=== PATIENT | female | born 1965 | race Caucasian/White ===

== ENCOUNTER → 2017-12-15 14:25 | Outpatient (CLI) | payer BC, SELFPAY ==
--- NOTE | 2017-12-15 14:27 | HPBI_ITS ---
MAMMOGRAPHY - BILATERAL SCREENING REASON FOR EXAM: Female, 52 years old. Routine annual screening examination. PERTINENT HISTORY: Non-contributory. Remote left stereotactic breast biopsy and right excisional breast biopsy. TECHNIQUE: Digital bilateral breast gloria (3D mammographic acquisition) in the CC and MLO projections. 2-D mediolateral oblique (MLO) and craniocaudad (CC) views of both breasts were obtained. CAD: Full Field Digital Mammography with Computer Added Detection was performed. COMPARISON: Comparison is made with prior study dated December 09, 2016 and December 18, 2015. FINDINGS: Breast Composition: The breasts are extremely dense, which lowers the sensitivity of mammography. There are no dominant masses or suspicious calcifications. Once again, a tissue clip marker is seen in the mid lateral portion of the left breast. No other significant abnormalities are identified. There has been no significant change since the prior study. HPBI/SCREENING MAMM (CAD), BILAT IMPRESSION: Stable bilateral screening mammogram. Yearly follow-up mammogram recommended. (A) ASSESSMENT CATEGORY: BIRADS Category 1: Negative. A letter regarding these results will be sent to the patient by the facility within 30 days. Approximately 10% of breast cancers are not detected by mammography. A normal mammogram should not delay biopsy of a clinically suspicious abnormality. [id number] Electronically Signed: Ricky Mares MD at 7:51 EST Tel [phone], Service support ,
== END ==
PROVIDERS: Family Provider Internal Medicine; PCP Internal Medicine; Visit Provider Obstetrics & Gynecology
DX: Z12.31 Encounter for screening mammogram for malignant neoplasm of breast (principal)
CPT/HCPCS: 77063; 77067

== ENCOUNTER 2018-05-08 08:30 | Outpatient (RCR) | payer BC, SELFPAY ==
--- NOTE | 2018-05-08 15:32 | PCM.HP.BLA ---
History and Physical Identifying information Patient is a 52 year old female who presents to the the [facility] with chief complaint of depression and anxiety. Everything is coming to ahead. History is been obtained per interview with patient, discussion with staff, review of chart. Case discussed with treatment team. History of present illness Patient is a 52-year-old female who presents to [facility] with chief complaint of increased depression and anxiety for the past 2 months. She attributes exacerbation of her symptoms to multiple stressors. Her mother had a stroke in February and she participates in caretaking. Her mother was admitted to the hospital last night for GI bleed. She reports work stress due to management changes and change in work schedule. She endorses depressed mood with anhedonia decreased energy and decreased appetite. She has ruminative anxiety particularly regarding her mother and work. She denies panic attacks. She endorses some mild obsessive-compulsive traits including perfectionism and being a clean freak. She does not feel that these interfere with her general functioning. She is sleeping from 10 PM to 5 AM. Her appetite is overall decreased. She denies eating disorder. She denies suicidal or homicidal ideation. Denies hallucinations or symptoms consistent with psychosis. Denies symptoms consistent with a discrete episode of yvan or bipolar disorder. She acknowledges increased consumption of alcohol of 2-4 craft beers daily since February in an effort to cope. Past psychiatric history Patient denies previous psychiatric hospitalization. She does report an episode of depression in 1995 associated with job stress. She took Zoloft for a period of 4 years prescribed by her [employer]. She stopped Zoloft 2 years ago and resumed it on Friday. She does not currently have a psychiatrist or counselor. She denies history of suicide attempts or self-harm. Substance use history Patient denies smoking or use of illicit drugs. She consumes 2-4 craft beers daily. Past medical history Rosacea SAB 1 Review of systems No fevers chills nausea vomiting chest pain dyspnea. All other systems reviewed and negative. Allergies-penicillin, erythromycin, fragrance, would wool alcohols, P-TERT Current medications Zoloft 50 mg p.o. daily MetroGel Multivitamin Family history Denies family psychiatric history Developmental social history Patient was born and raised in [place]. She has 2 older half-brothers. She has a younger full brother and younger full sister. She grew up with her parents and her siblings. She reports her parents have been for 56 years. She describes growing up as fun and typical. She denies abuse. 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 She has been for 24 years. She and her have 2 kids son age 20 and Cristofer age 18. Legal history none mental status exam Vital signs reviewed per nursing database and discussed with nursing. Alert and oriented . No acute distress. Ambulatory with normal gait and station. Appears stated age. Casually dressed and groomed. Appropriate hygiene. Cooperative with interview. Good eye contact. No psychomotor agitation or retardation. Mood depressed. Affect congruent. Speech is clear and with regular rate and rhythm. Language fluent. Thought process organized. Associations logical. Thought content significant for ruminative anxiety and themes of depression. No suicidal or homicidal ideation related or detected.. No symptoms consistent with psychosis noted or detected. Immediate recent and remote memory grossly intact. Attention and concentration are fair. Estimated intelligence and fund of knowledge average. Judgment and insight fair. Labs and testing TSH normal within the past year. Patient is scheduled for further lab work in 2 weeks. Requisition provided for TSH and vitamin D. Diagnosis Major depressive disorder recurrent moderate F 33.1 Anxiety unspecified Plan Admit to IOP as the structured setting is necessary to prevent decompensation. Risks benefits alternatives of medications discussed with patient. Patient acknowledges understanding. Continue Zoloft 50 mg daily. Prescription provided for Campral 333 mg p.o. 3 times daily to be increased to 666 mg p.o. 3 times daily after 1 week. Alcohol cessation encouraged. Patient prefers to attempt alcohol cessation prior to starting Campral. May start Campral if needed. Prescription provided for trazodone 50 mg 1/2-2 p.o. nightly as needed insomnia. Requisition provided for lab work. Encouraged to establish with outpatient psychiatric providers for follow-up when IOP complete. Encouraged to follow-up with primary care physician as needed. Patient acknowledges understanding and is in agreement with plan. Feels able to maintain safety. Agrees to seek help or emergency care feeling unsafe to self or others.
--- NOTE | 2018-05-08 15:44 | BH.DR.ITP ---
Initial Treatment Plan - Patient Information Visit Information: ADMISSION DATE: EXPECTED LOS: 4-6 weeks Diagnoses:: Major depressive disorder of 33.1 - Problems/Symptoms Problem #1:: Depression Symptom:: Sad mood, anhedonia, decreased energy, disruption of appetite Problem #2:: Anxiety Symptom:: Rumination
--- NOTE | 2018-05-11 09:07 | BH.SGPN.GN ---
Behaviors/Verbalizations/Mental Status: [Client alert and orient x3. She was appropriately groomed, dressed clean and casually. Good eye contact throughout. Client motor activity appropriate, at times appearing restless AEB client fidgeting with hands or edge of chair. Speech was WNL; however, limited input provided. Mood was depressed and anxious, affect constricted. Thoughts linear and logical, no present hallucination or delusions. Therapist reviewed clients symptom tracker to assess for intensity of mental health symptoms and identify risk for suicide. No signs of suicidal ideation, plan, or intent to date.] Client Response/Progress/Benefit: [Client new to the IOP program and was adjusting to group setting. She was receptive of session and responded well to discussion throughout. Client indicated feelings very anxious and scared to be in a group mental health support program. She went on to discuss having no previous experience with group treatment or therapy in general. Client benefitted from the support of the group environment and encouragement provided by fellow participants who aided in normalizing some of clients fears regarding ensuring confidentiality and not wanting to be judged by the group. Client expressed wanting to work on improving management of mental health symptoms as well as learning strategies for Decreasing levels of anxiety. Recommended continued IOP tx to prevent decompensation and work on improving client insight into mental health symptom management.] Narrative Note: []
--- NOTE | 2018-05-11 10:20 | BH.SGPN.GN ---
Behaviors/Verbalizations/Mental Status: [] Pt eye contact fair, casually dressed, motor activity restless, speech normal rate and tone, mood anxious, congruent affect, thoughts linear and logical, no evidence of delusions or hallucinations. Client Response/Progress/Benefit: []Pt initially quiet, appeared anxious however showed increased engagement and more comfortable towards middle of group AEB increased verbal participation. Pt reported goals can be beneficial by giving a sense of accomplishment and purpose. Pt identified fear of unknown as a barrier to following through on goals set. She also connected with high expectations of self being a barrier. When processing activity pt connected with idea small successes and accomplishments should be celebrated. Pt seemed to benefit from learning about setting SMART goals as well as rehearsal of setting small goals. Pt to continue IOP level of care to decrease anxiety and prevent decompensation.
--- NOTE | 2018-05-11 11:25 | BH.SGPN.GN ---
Behaviors/Verbalizations/Mental Status: [] Pt eye contact fair, casually dressed, motor activity restless, speech normal rate and tone, mood anxious, congruent affect, thoughts linear and logical, no evidence of delusions or hallucinations. Client Response/Progress/Benefit: [] Patient passive to splint contributed if elicited by therapist. Client reported her goal for the week is to ride her bike at least 3 times for 1 hour. Client reported she has all of the things she needs in order to go bike riding however her biggest struggle is making a time. Client shared she is going to schedule it by writing on Friday, Friday, and Friday this week. Client shared the reason she wants to accomplish his goals because she knows when she takes time to go bike riding she feels more mentally stable and relaxed. Client seemed to benefit from identifying one smart goal that will help her get back into focusing on self-care which is something client reported she has not been focusing on recently. Narrative Note: []
--- NOTE | 2018-05-12 09:12 | BH.SGPN.GN ---
Behaviors/Verbalizations/Mental Status: [Client alert and orient x3. She maintained consistent eye contact throughout. Motor activity restless - wringing hands and bouncing legs. Appearance was neat, grooming and hygiene well kempt. Speech soft though within normal limits. Mood was anxious, depressed; affect constricted. Thoughts remained linear and logical, no present hallucinations or delusions. Therapist reviewed clients symptom tracker to assess for intensity of mental health symptoms and identify risk for suicide. No signs of suicidal ideation, plan, or intent to date.] Client Response/Progress/Benefit: [Client receptive of session and was engaged throughout. This was evidenced by client increased ability to relate to the group and supportive feedback provided. Client did not provide any personal input related to client own mental health recovery; however, on various occasions responded to other participants and indicated connecting with the ongoing symptoms of worry and anxiety discussed by others in the group. Client continues with to benefit from the structure of the shared group environment. She is recommended continued IOP tx to prevent decompensation and promote ongoing progress in her use of healthy anxiety management and distress tolerance skills. ] Narrative Note: []
--- NOTE | 2018-05-12 10:30 | BH.SGPN.GN ---
Behaviors/Verbalizations/Mental Status: []Client alert and oriented, neatly dressed and groomed. Eye contact good. Motor activity appropriate. Speech within normal limits. Affect flat, mood anxious, depressed. Thoughts linear, logical, no signs of hallucinations or delusions. Client Response/Progress/Benefit: []Client responded well to session, participating when prompted. Client appeared to connect with the topic of resilience, sharing Im an expert on adapting to the point its burdensome. After the group discussion of resilience, client connected that a resilient person can be flexible to others and adapt, but also takes time for self-care. Client stated she forgets to take care of herself, which makes dealing with stressors and being resilient hard. Client helped peers identify the factors that contribute to building resilience such as taking care of basic needs and self-care, living to learn, and self-awareness. Client appeared to benefit from increasing awareness of resilience and the factors that help build resilience such as taking care of basic needs. Progress noted as shown by clients increased awareness of how self-care plays a critical role in managing stressors. Client to continue IOP as she continues to report high anxiety.
--- NOTE | 2018-05-12 11:30 | BH.SGPN.GN ---
Behaviors/Verbalizations/Mental Status: []Client alert and oriented, neatly dressed and groomed. Eye contact good. Motor activity appropriate. Speech within normal limits. Affect flat, mood anxious, dysthymic. Thoughts linear, logical, no signs of hallucinations or delusions. Client Response/Progress/Benefit: []Client responded well to session, making good connections during discussion. Client engaged in activity, demonstrating resilient traits as shown by her words of encouragement and determination to accomplish the goal. Client connected the stress ball to a resilient personality because the stress ball can bounce back after dealing with stress. Client identified personal resilience traits such as being open to help, taking care of basic needs, exercise, and self-care to help client maintain resilience despite hardships. Client shared Julianna realized how much I dont take care of myself and I want to get back to exercising because I enjoyed it. Client appeared to benefit from gaining awareness of ways she can improve resilience and receiving positive support from peers. Client to continue IOP to prevent decompensation and reduce anxiety.
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
--- NOTE | 2018-05-12 17:02 | BH.MTP ---
Master Treatment Plan - Patient Information Program Physician:: Dr. Young Primary Therapist:: Wendie Sheldon [facility] - Psychiatric Diagnoses Psychiatric Diagnoses:: Major depressive disorder recurrent moderate. Anxiety unspecified Diagnosis Code(s):: F 33.1 - Estimated LOS Estimated LOS (in weeks):: 6 Problem/Goal #1 - Problem/Goal #1 Stated Goal:: Client will reduce depression and improve daily functioning due to Major Depressive Disorder through the Intensive Outpatient Program. Description of Barriers: Pt's apprehension about being in a group therapy type of treatment could be hinderance to treatment if pt does not open up about her feelings and thoughts. Pt's high expecations of self, ruminations, and negative thinking could also be barriers to treatment. Functional Impact: Pt having difficulty managing the stressors at work and fulfilling responsibilites as a mother and . Pt is experiencing increased agitation which is impacting familial relationships. Pt has stopped doing the activities that were her basic self-care, like bike riding. Pt using alcohol as a form of self-medicating to cope with stressors and mental health symptoms. Goal Relevant Strengths/Supports: Pt is intelligent and motivated to get better. - Objectives Objective #1 Stated Objective: Client will identify 2-3 depressive thinking patterns and be able to challenge and replace negative thoughts. Interventions: Therapist will assist client in identifying depressive thinking patterns and provide client with resources to help teach client strategies in defeating negative thoughts. Discharge Criteria: Client will have met this objective when can identify at least two depressive thinking patterns and be able to defeat depressive and suicidal thoughts. Target Date: 06/19/18 Review Date: 06/05/18 Objective #2 Stated Objective: Client will reduce depressive symptoms AEB pt's score on the DSM 5 cross cutting measure. Interventions: Through groups and individual therapy, pt will be provided with education on cognitive distortions, mistaken beliefs, and identifying and combating negative self-talk. Therapist will assist pt with getting back into the activities she once enjoyed as well as increasing healthy coping strategies. Discharge Criteria: Pt will have met this goal when pts score on the DSM 5 cross cutting measure for depression has been decreased. Target Date: 06/19/18 Review Date: 06/05/18 Problem/Goal #2 - Problem/Goal #2 Stated Goal:: Reduce overall frequency, intensity, and duration of the anxiety so that daily functioning is not impaired. Description of Barriers: Pt's apprehension about being in a group therapy type of treatment could be hinderance to treatment if pt does not open up about her feelings and thoughts. Pt's high expecations of self, ruminations, and negative thinking could also be barriers to treatment. Functional Impact: Pt having difficulty managing the stressors at work and fulfilling responsibilites as a mother and . Pt is experiencing increased agitation which is impacting familial relationships. Pt has stopped doing the activities that were her basic self-care, like bike riding. Pt using alcohol as a form of self-medicating to cope with stressors and mental health symptoms. Goal Relevant Strengths/Supports: Pt is intelligent and motivated to get better. - Objectives Objective #1 Stated Objective: Client will learn and implement 2-3 calming skills to reduce overall anxiety and manage anxiety. Interventions: Therapist will teach the client calming/relaxation skills and help clients connect ways to apply skills to daily life. Discharge Criteria: Client will have met this goal when can verbalize at least 2 relaxation skills and has incorporated those skills into daily routine. Target Date: 06/19/18 Review Date: 06/05/18 Objective #2 Stated Objective: Pt will decrease anxious symptoms AEB pts score on the DSM 5 cross-cutting measure. Interventions: Through groups and individual therapy, pt will be provided education about anxietys impact on body and common physiological reaction to anxiety. Therapist will teach pt appropriate breathing techniques and build healthy coping skills to manage daily anxieties. Discharge Criteria: Pt will have met this goal when pts score on the DSM 5 cross cutting measure for anxiety has been decreased. Target Date: 06/19/18 Review Date: 06/05/18
--- NOTE | 2018-05-12 21:26 | BH.MDN ---
Multi-Disciplinary Note - Note 60-min Individual Time Started:: 12:30 Date: 05/12/18 Purpose of session/treatment goals addressed:: Purpose of session was to assess current symptoms and stressors. other topics included: identifying treatment goals, gathering additional background information, relaxation techniques. Eye Contact:: Fair Motor Activity:: Restless Appearance:: Neat Speech:: Appropriate Mood:: Anxious, Depressed Affect:: Congruent Thoughts:: Linear, Logical, No evidence of hallucinations/delusions noted Staff Interventions:: Therapist utilized open ended questions to elicit pt's current symptoms and stressors. Therapist probed for additional background information. Elicited pt's thoughts about what treatment goals she would like to focus on throughout IOP. Therapist provided support by using active listening and validating emotions. Pt provided psychoeducation about proper breathing techniques to reduce anxiety. Provided handout of 4 different breathing techniques. Gave homework for pt to choose one breathing technique to practice at least for 2 minutes every day. Client Response:: Pt reported group wasn't as bad today, found herself to be little less anxious. Pt shared she still finds group therapy to be anxiety producing, but recognizes it could get better as she becomes comfortable with the other group members. Pt opened up about her mental health history sharing she first noticed her anxiety when she was in college. Pt reported she notes on and off bouts of increased anxiety since late , but overall believed she managed her symptoms well. Pt shared medication did help, but stopped taking it after 5 years because she wanted to do it on my own. Pt recognizes medications are not a bad thing and have since started taking the medications again. Pt identifies her mom's stroke in February 2018 to be the big stressor that exasperated her anxiety and depression. Pt reports her mom continues to be demanding her pt's father which increases pt's worry because she doesn't want her father to decline in health with the added stress. Pt states she wants to make sure she gets her mom the best care possible and recently started to question why she is so invested in helping her mom after her mom has been critical of pt since pt graduated from college. Pt reports she is trying to get back into doing activities that are healthy for her including biking. Pt states she has plans to go biking today after session. Pt shared her inital goal to reduce her drinking of alcohol is to cut back to one beer a day through the week and two beers on the weekend. Pt reported eventually she'd like to work to having several days in which she didn't drink a beer. Pt agreeable to practice at least one breathing technique everyday for at least 2 minutes for one week. Risks/Concerns:: Pt denies suicidal thoughts, plan or intention to date. Pt's family is supportive and serves as a protective factor. Progress Toward Goals/Plan:: Pt showing progress with decreasing her drinking of alcohol this weekend and verbalizing planning to follow through with identified goal of taking a bike ride at least 3 times a week for one hour. Pt progress limited given pt has only attended 3 times in the program. Pt to continue IOP level of care to decrease anxiety and depression, improve daily functioning, and prevent decompensation. Time Stopped:: 13:30
--- NOTE | 2018-05-13 09:08 | BH.SGPN.GN ---
Behaviors/Verbalizations/Mental Status: []Client alert and oriented, neatly dressed and groomed. Eye contact good. Motor activity relaxed. Speech within normal limits. Affect constricted, mood anxious. Thoughts linear, logical, no signs of hallucinations or delusions. Reviewed clients symptom tracker, no signs of suicidal ideation, plan, or intent as of 05/13/18. Client Response/Progress/Benefit: []Client responded well to session, quiet, but receptive to validation providing by peers. Client reports feeling scared, guilty, frightened today. Client shared she feels guilty for being in group when she has a lot of things to do at home and for her family. Client also stated, feeling scared about this whole process referring to mental health, as client reported she is a private person who does not like to express her struggles. 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 Client stated she has been pushing anxiety and her needs aside for so long, it is scary to work on them in therapy. Client appeared to benefit from in the moment thought challenging and emotional support provided by group. Client demonstrating progress as shown by her verbalization of interpersonal struggles in group, but continues to endorse ruminations and anxiety. Client to continue IOP to reduce anxiety and increase mood stability.
--- NOTE | 2018-05-13 10:15 | BH.SGPN.GN ---
Behaviors/Verbalizations/Mental Status: [Client receptive of session, alert and orient x3. She was a passive participant, actively listening throughout discussion. Fair eye contact throughout, tearful when discussing negative thinking patterns. Motor activity lethargic. Appearance disheveled - attire oversized and wrinkled. hair unwashed. Speech within normal limits. Mood was anxious, depressed. affect constricted, depressed. Thoughts remained linear and logical, with no present hallucinations or delusions.] Client Response/Progress/Benefit: [Client responded well to session. She appeared to connect well with group topic of negative thinking cycle challenging negative thoughts. Client remained a passive participant in the discussion portion however was actively listening throughout. This was dense by client nodding and taking notes as well as providing some input or asking clarification questions. Client appeared to benefit from psychoeducation portion reviewing depression and anxiety maintenance cycles and how negative thinking can contribute to maintaining symptoms of anxiety and depression. Shared finding that in her own life she struggles with falling into similar cycles and commonly experiences negative thoughts of never be happy again or I am just going through the motions. Client displayed progress in her ability to in the discussion and provide input regarding how content discussed relates to her own personal experiences. Recommended continued IOP treatment in order to prevent decompensation, increased levels of insight regarding client's own mental health, and continue to develop strategies for managing mental health symptoms.] Narrative Note: []
--- NOTE | 2018-05-13 10:53 | BH.MTP_ITS ---
Master Treatment Plan - Patient Information Program Physician:: Dr. Young Primary Therapist:: Wendie Sheldon [facility] - Psychiatric Diagnoses Psychiatric Diagnoses:: Major depressive disorder recurrent moderate. Anxiety unspecified Diagnosis Code(s):: F 33.1 - Estimated LOS Estimated LOS (in weeks):: 6 Problem/Goal #1 - Problem/Goal #1 Stated Goal:: Client will reduce depression and improve daily functioning due to Major Depressive Disorder through the Intensive Outpatient Program. Description of Barriers: Pt's apprehension about being in a group therapy type of treatment could be hinderance to treatment if pt does not open up about her feelings and thoughts. Pt's high expecations of self, ruminations, and negative thinking could also be barriers to treatment. Functional Impact: Pt having difficulty managing the stressors at work and fulfilling responsibilites as a mother and . Pt is experiencing increased agitation which is impacting familial relationships. Pt has stopped doing the activities that were her basic self-care, like bike riding. Pt using alcohol as a form of self-medicating to cope with stressors and mental health symptoms. Goal Relevant Strengths/Supports: Pt is intelligent and motivated to get better. - Objectives Objective #1 Stated Objective: Client will identify 2-3 depressive thinking patterns and be able to challenge and replace negative thoughts. Interventions: Therapist will assist client in identifying depressive thinking patterns and provide client with resources to help teach client strategies in defeating negative thoughts. Discharge Criteria: Client will have met this objective when can identify at least two depressive thinking patterns and be able to defeat depressive and suicidal thoughts. Target Date: 06/19/18 Review Date: 06/05/18 Objective #2 Stated Objective: Client will reduce depressive symptoms AEB pt's score on the DSM 5 cross cutting measure. Interventions: Through groups and individual therapy, pt will be provided with education on cognitive distortions, mistaken beliefs, and identifying and combating negative self-talk. Therapist will assist pt with getting back into the activities she once enjoyed as well as increasing healthy coping strategies. Discharge Criteria: Pt will have met this goal when pt?s score on the DSM 5 cross cutting measure for depression has been decreased. Target Date: 06/19/18 Review Date: 06/05/18 Problem/Goal #2 - Problem/Goal #2 Stated Goal:: Reduce overall frequency, intensity, and duration of the anxiety so that daily functioning is not impaired. Description of Barriers: Pt's apprehension about being in a group therapy type of treatment could be hinderance to treatment if pt does not open up about her feelings and thoughts. Pt's high expecations of self, ruminations, and negative thinking could also be barriers to treatment. Functional Impact: Pt having difficulty managing the stressors at work and fulfilling responsibilites as a mother and . Pt is experiencing increased agitation which is impacting familial relationships. Pt has stopped doing the activities that were her basic self-care, like bike riding. Pt using alcohol as a form of self-medicating to cope with stressors and mental health symptoms. Goal Relevant Strengths/Supports: Pt is intelligent and motivated to get better. - Objectives Objective #1 Stated Objective: Client will learn and implement 2-3 calming skills to reduce overall anxiety and manage anxiety. Interventions: Therapist will teach the client calming/relaxation skills and help clients connect ways to apply skills to daily life. Discharge Criteria: Client will have met this goal when can verbalize at least 2 relaxation skills and has incorporated those skills into daily routine. Target Date: 06/19/18 Review Date: 06/05/18 Objective #2 Stated Objective: Pt will decrease anxious symptoms AEB pt?s score on the DSM 5 cross-cutting measure. Interventions: Through groups and individual therapy, pt will be provided education about anxiety?s impact on body and common physiological reaction to anxiety. Therapist will teach pt appropriate breathing techniques and build healthy coping skills to manage daily anxieties. Discharge Criteria: Pt will have met this goal when pt?s score on the DSM 5 cross cutting measure for anxiety has been decreased. Target Date: 06/19/18 Review Date: 06/05/18
--- NOTE | 2018-05-13 11:25 | BH.SGPN.GN ---
Behaviors/Verbalizations/Mental Status: [Client eye contact fair, casually and appropriately dressed, motor activity restless, speech normal rate and soft tone, mood anxious and depressed, constricted affect, thoughts linear and logical, no evidence of delusions or hallucinations.] Client Response/Progress/Benefit: [Client again responded well to session and was more open to providing input throughout discussion. She was able to work with the group on identifying potential mental health and behavioral consequences of the example negative thought and identify ways to challenge and reframe it. CLient struggled in challenging her own negative thought and discussed with the group feeling as though the thought of I'll never be happy again is realistic. She benefited from the feedback provided by fellow participants regarding evidence against this thought and ways she may begin to challenge her current perception of it. Client contonies to struggle with significant distorted thinking patterns; however, is displaying progress in her receptivity of IOP tx content discussed and indicated beginning to think about how the information may relate to her own life. CLient recommended continued IOP tx to prevent decompensation and further improve client ability to identify and challenge anxiety producing thoughts. ] Narrative Note: []
--- NOTE | 2018-05-21 09:02 | BH.SGPN.GN ---
Behaviors/Verbalizations/Mental Status: [] Pt eye contact fair, casually dressed, motor activity restless, speech normal rate and tone, mood anxious, congruent affect, thoughts linear and intact, no evidence of delusions or hallucinations. Reviewed client?s symptom tracker, no signs of suicidal ideation, plan, or intent as of today. 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 Pt shared once she arrived to her place it took her awhile to unwind. Pt reported overall the workshop went well, struggled with sitting still throughout because she feels the need to be constantly moving. Pt shared she has been busy because worked Friday-Friday, but reported she worked on letting things go and not trying to control all situations. Pt reported it was challenging, but recognizes it's important for her to start doing. Pt reported she was able to go biking 2 times and instead of going biking a 3rd time she chose to deep clean her car. Pt shared she is happy she was able to accomplish getting her car clean and really enjoyed herself by biking. Pt reported feeling excited to go away with her family today for a long weekend. Pt demonstrating progress AEB pt managing her anxiety more effectively and is getting back to activities she used to enjoy. Pt to continue IOP to decrease anxiety and prevent decompensation. Narrative Note: []
--- NOTE | 2018-05-21 10:09 | BH.SGPN.GN ---
Behaviors/Verbalizations/Mental Status: [Client maintained good eye contact, neat and casually dressed, motor activity WNL - at times restless as client shaking leg or adjusting in chair frequently, speech normal rate and tone, mood anxious and euthymic, affect congruent with mood, thoughts linear and logical, no evidence of delusions or hallucinations.] Client Response/Progress/Benefit: [Client responded positively to session, engaged throughout. She was an active participant in discussion reviewing the impact current internal obstacles may have on her ability to bridge the gap between current reality and desired reality. Client indicated that to her current reality looks like the sun is always hidden be clouds for her while everyone else is enjoying the sunshine. She displayed progress in her ability to identify current barriers and shared beliefs that perfectionist thinking, high standards for herself,and taking on more than she can handle are her largest barriers to attaining her desired reality. She benefitted from processing the impact her identified obstacles have on current mental health symptoms. Client recommended continued IOP tx to prevent decompensation and continue to increase client insight into mental health symptoms and management techniques.] Narrative Note: []
--- NOTE | 2018-05-21 11:18 | BH.SGPN.GN ---
Behaviors/Verbalizations/Mental Status: [Client maintained good eye contact, casually neat and dressed, motor activity appropriate, speech normal rate and tone, mood euthymic - volunteered to be blindfolded in the activity despite anxiety about doing so, anxious, congruent affect, thoughts linear and logical, no evidence of delusions or hallucinations.] Client Response/Progress/Benefit: [Client responded well to session and remained actively engaged throughout. She volunteered as one of the blindfolded participants in the obstacle course activity. She benefited from challenging herself to go outside of her comfort zone in doing such and allow herself to trust fellow participants to guide her. Nick connected her discomfort which lack of control when blindfolded to discomfort when feeling out of control in her personal life. She displayed progress in ability to begin identifying healthy strategies for overcoming internal barriers. Client recommended continued IOP tx to prevent decompensation and continue to make progress in anxiety management.] Narrative Note: []
--- NOTE | 2018-05-25 09:05 | BH.SGPN.GN ---
Behaviors/Verbalizations/Mental Status: [Client maintained fair and at times inconsistent eye contact, casually and cleanly dressed, motor activity restless - client tapping hands against one another and bouncing in seat, speech normal rate and tone, mood irritable,anxious - client described feeling dreadful, affect congruent, thoughts linear and logical, no evidence of delusions or hallucinations. Therapist reviewed clients symptom tracker to assess for intensity of mental health symptoms and identify risk for suicide. No signs of suicidal ideation, plan, or intent to date.] Client Response/Progress/Benefit: [Client responded positively to session and appeared to benefit from having the time to process with the group. She initially indicated feeling dreadful today however almost immediately challenged herself and indicated well maybe not dreadful anymore frustrated she discussed having recently had a good past few days is feeling positive until earlier this morning when she received a text from her sister. Client went on to describe that the text had about her mother who is currently receiving rehab dilatation post stroke. In the past similar attacks have been the cause of ongoing headaches and miscommunication between her mother's doctors and supports. 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 She shared feeling anxious about going to the hospital to help her mother navigate the situation however reflected that initially she had been catastrophizing and after talking to her mother's medical team on the phone as well as processing and reminding herself that in the past she has made it through similar experiences she is a feeling a little less stressed. progress shown in clients willingness to begin actively challenging previous behaviors and thought patterns. Recommended continued IOP treatment to prevent decompensation and continue to make progress in ability to manage mental health symptoms.] Narrative Note: []
--- NOTE | 2018-05-25 10:35 | BH.SGPN.GN ---
Behaviors/Verbalizations/Mental Status: []Client alert and oriented, neatly dressed and groomed. Eye contact good. Motor activity appropriate. Speech within normal limits. Affect constricted, mood anxious. Thoughts linear, logical, no signs of hallucinations or delusions. Client Response/Progress/Benefit: []Client responded well to session, participating when prompted. Client shared there can be many reasons why a person views a situation as impossible, feeling overwhelmed being one of them. Client nodded in agreement with peers that having an impossible mindset can negatively impact mental health and progress. Client participating in activity, passive at times. Client told therapist after activity I hope you dont think I gave up which demonstrates client may have been ruminating and anxiety about what others thought of her during the activity. Client shared she deals with high-anxiety situations at work frequently, so she has to pick in choose in her personal life what situations need my energy and which ones I can let go. Client stated it is helpful to have self-awareness when dealing with impossible situations, because somethings cant be solved so you have to move on. Client appeared to benefit from recognizing the consequences of viewing situations as impossible and reflecting on the importance of self-awareness. Client seems to be progressing with increasing awareness of clients lack of self-care, but continues to struggle with implementing calming strategies to manage anxiety.
--- NOTE | 2018-05-25 11:32 | BH.SGPN.GN ---
Behaviors/Verbalizations/Mental Status: []Client alert and oriented, neatly dressed and groomed. Eye contact good. Motor activity restless. Speech within normal limits. Affect constricted, mood anxious. Thoughts linear, logical, no signs of hallucinations or delusions Client Response/Progress/Benefit: []Client responded well to session, participating in discussion. Client appeared to connect with growth versus fixed mindset providing examples of thoughts for each. Client helped the group process the benefits of growth mindset sharing, having a growth mindset helps her move forward and be more hopeful. Client reported she is used to high-stress environments due to her work, so she is consistently thinking of solutions and using her growth mindset. Client recognizes she could benefit from implementing growth mindset self-talk to manage her mental health as well. Client able to identify internal and external resources that can help client overcome current barriers of anxiety such as increasing self-care, thought challenging, and reaching out to positive supports. Client appeared to benefit from learning about growth mindset and increasing awareness of internal and external resources that may help client overcome barriers. Client seems to be progressing as shown by her report of increased awareness of negative thought patterns, but can continue to benefit from applying thought challenging strategies.
--- NOTE | 2018-08-11 16:06 | BH.MDN_ITS ---
Multi-Disciplinary Note - Note 45-min Individual Time Started:: 12:23 Date: 05/21/18 Purpose of session/treatment goals addressed:: Purpose of session was to assess pt's current symptoms and stressors. Other topics included: education about cognitive triangle, high expecations, and healthy coping skills. Eye Contact:: Fair Motor Activity:: Restless Appearance:: Casual Speech:: Appropriate Mood:: Anxious Affect:: Congruent Thoughts:: Linear, Logical, No evidence of hallucinations/delusions noted Staff Interventions:: Therapist used open ended questions to elicit pt's current symptoms and stressors. Therapist processed yesterday, assisting pt with identifying distorted thought patterns. Therapist provided psychoeducation about the connection between thoughts, emotions, and behavior. Therapist used example from pt's recent thought patterns to help pt connect impact her negative thinking has on her emotions and behavior. Therapist reviewed pt's healthy coping skills, encouraged pt to set time aside to do things she enjoys. Therapist provided homework for pt to keep a thought record over the weekend. Client Response:: Pt appeared anxious throughout session, seems to continue to have difficult time opening up about her thoughts and emotions. 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 Pt shared she knows it will take some time to give up some of her control, but she is trying to apply that to work and home. Pt reported yesterday was a bad day. Pt elaborated that she was anxious in the morning driving to the workshop plus knew she had to get a lot done in order to be ready for short family vacation. Pt reported steady an xiety throughout the day with heightened anxiety when found out her daughter didn't follow through on certain tasks she had given her daughter to do. Pt shared she was able to get everything done, but embarassed and disappointed that she drank more alcohol then she wanted. Reported she has been doing well with sticking to 2 beers every evening, but last night had 3-4 beers. Pt states she doesn't think she was drinking as a way to destress, but was just having a good time getting ready for vacation. Pt reported this morning she was beating herself up for going over the goal of drinking only 2 beers. Shared she kept telling herself I'm such a loser. Pt connected with the cognitive triangle, relating how her thoughts can impact how she feels and how her emotions can impact how she acts. Pt agreeable to complete thought record. Risks/Concerns:: Pt does not present any risks or concerns at this time. Progress Toward Goals/Plan:: Pt demonstrating progress with trying to have realistic expecations of self while at work and not aiming for perfection because results in increased stress and anxiety. Pt working on letting go of some control at work, deligating tasks instead of taking everything on herself. Pt continuing to struggle with utilizing healthy coping skills when feeling overwhelmed and anxious which results in pt reverting back to old coping skills like alcohol. Pt to continue IOP level of care to decrease anxiety, increase utilization of healthy skills consistently, and prevent decompensation. Time Stopped:: 13:03
== END 2018-05-26 23:59 ==
LOC: BHIOP 08:30
PROVIDERS: Family Provider Internal Medicine; PCP Internal Medicine; Visit Provider Psychiatry & Neurology Psychiatry
DX: F33.1 Major depressive disorder, recurrent, moderate (principal); F41.9 Anxiety disorder, unspecified
CPT/HCPCS: H0035; 90834; 90853

== ENCOUNTER 2018-05-27 09:00 | Outpatient (RCR) | payer BC, SELFPAY ==
--- NOTE | 2018-05-27 10:18 | BH.SGPN.GN ---
Behaviors/Verbalizations/Mental Status: [Client maintained good eye contact, casually dressed, motor activity restless - wringing hands, tapping feet, speech normal rate and tone, mood euthymic and anxious, congruent affect, thoughts linear and logical, no evidence of delusions or hallucinations.] Client Response/Progress/Benefit: [Client responded well to session and indicated making several connections with content discussed. She worked with fellow participants on identifying the various means in which they can choose to deal with life's pitfalls. Client discussed feeling as though she works really hard at avoiding life's pitfalls and will often minimize her symptoms or take on more than she can handle. Client further discussed feeling as though she utilizes anticipatory guidance or trying to over plan for things which negatively impacts symptoms of anxiety. Client benefited from this shared discussion in which he expressed connecting with the various negative means of coping with unexpected or negative life events discussed by fellow participants. Client displayed progress in her ability to identify creative solutions to approaching the pitfalls in the group activity and was able to make connections between solutions in the activity and potential solutions she could apply to her own life. She is recommended continued IOP treatment in order to prevent decompensation, increase application of creative problem-solving solutions identified and use of healthy coping skills. ] Narrative Note: []
--- NOTE | 2018-05-27 11:19 | BH.SGPN.GN ---
Behaviors/Verbalizations/Mental Status: [Client alert and orient x3, maintained good eye contact, casually and neatly dressed, motor activity restless - fidgeting in seat, bouncing legs, speech normal rate and tone, mood euthymic and anxious - actively reflecting, affect congruent and full, thoughts linear and logical, no evidence of delusions or hallucinations.] Client Response/Progress/Benefit: [Client responded well to session and remained an actively engaged participant throughout. Client shared that she was able to connect with the person pitfalls other participants were discussing and indicated that her personal pitfalls include guilt, isolation, high expectations of self, fixed mindset, and caring for myself to the point of not caring for myself. She benefitted from working with the group to identify strategies for managing and preventing falling into pitfalls including creating a plan 'B', relax my thinking and becoming more flexible, healthy distractions such as turn on tv or listen to music, clear and effective communication, and practicing coping skills CLient displaying progress in her level of insight regarding what skills may be effective to improve symptom management. Client recommended continued IOP tx to improve consistency of healthy skill application and to prevent decompensation.] Narrative Note: []
--- NOTE | 2018-05-27 15:59 | BH.MDN ---
Multi-Disciplinary Note - Note 60-min Individual Time Started:: 09:05 Date: 05/27/18 Eye Contact:: Good Motor Activity:: Appropriate Appearance:: Casual Speech:: Appropriate Mood:: Anxious Affect:: Congruent Thoughts:: Linear, Logical, No evidence of hallucinations/delusions noted Time Stopped:: 10:00
--- NOTE | 2018-05-29 14:14 | PN_ITS ---
Progress Note Patient is seen in follow-up for major depressive disorder recurrent moderate F 33.1, anxiety unspecified. History is been obtained per interview with patient , discussion with staff, review of chart. Case discussed with treatment team. Chief complaint-depression anxiety Better Interim history Mild depressive symptoms with anhedonia and decreased energy persist but of decreased intensity. Identifies more anxiety than depression. Ruminative anxiety regarding and her mother's health issues decreased. Repeat improvement to boundary setting and change in thinking. Decreased work hours. Using coping skills gained through IOP. Negative self thoughts. Mindfulness to emotions. No suicidal or homicidal ideation. No symptoms consistent with psychosis. Sleeping from 10 PM to 5 AM on workdays and 7 AM on other days. Appetite normal. Denies nausea vomiting or diarrhea. Decreased alcohol consumption. Continues however to consume 1-2 craft beers daily. Acknowledges that she uses beer to help her relax. Discussed pros and cons of alcohol. Denies use of illicit drugs. Compliant with Zoloft 50 mg daily. Denies adverse effects. Not currently taking Campral. Mental status exam Alert and oriented . No acute distress. Ambulatory with normal gait and station. Appears stated age. Casually dressed and groomed. Appropriate hygiene. Cooperative with interview. Good eye contact. No psychomotor agitation or retardation. Mood depressed but improved. Affect congruent. Speech is clear and with regular rate and rhythm. Language fluent. Thought process organized. Associations logical. Thought content significant for ruminative anxiety. No suicidal or homicidal ideation related or detected. No symptoms consistent with psychosis noted or detected. Immediate recent and remote memory grossly intact. Attention and concentration are fair. Estimated intelligence and fund of knowledge average. Judgment and insight improving. Requisition provided for TSH and vitamin D. Encouraged to obtain lab work. Diagnosis Major depressive disorder recurrent moderate F 33.1 Anxiety unspecified Plan Continue IOP as the structured setting is necessary to prevent decompensation. Risk-benefit alternative of medications discussed with patient patient acknowledges understanding. Increase Zoloft to 75 mg daily. Prescription provided. Encouraged alcohol abstinence. Encouraged use of Campral if needed. Encouraged to obtain lab work. Establish with outpatient psychiatric providers for when IOP complete. 20 minutes of Insight oriented psychotherapy provided. Patient acknowledges understanding and is in agreement with plan. Feels able to maintain safety. Agrees to seek help or emergency care feeling unsafe to self or others.
--- NOTE | 2018-06-03 09:05 | BH.SGPN.GN ---
Behaviors/Verbalizations/Mental Status: [] Pt alert and oriented. Casually dressed and appropriately groomed. Mood anxious, affect constricted. Speech tone and rate WNL. Thoughts linear and logical. Motor activity anxious. No evidence of delusions or hallucinations. Reviewed clients symptom tracker, no risk for suicidal ideation, plan, or intent as of 06/03/18. Client Response/Progress/Benefit: []Pt reported she is not doing so good. Pt elaborated her mom went back into the hospital yesterday morning. Pt shared she's not sure how much more she can take because she recognizes she's starting to burn herself out. Pt reported she feels the need to stay strong for her parents because she doesn't need either of them to worry about her. Pt shared it's getting harder to be the strong one, but knows she can do it because has done it all her life. Peers gently challenged pt's thoughts about needing to appear strong all the time. Pt struggling to think she needs to focus on self-care while her mom is sick. Pt seemed to benefit from support from peers and being challenged to understand importance of taking care of herself so she can help others. Pt to continue IOP level of care to decrease anxiety, increase consistent use of healthy skills and prevent decompensation. Narrative Note: []
--- NOTE | 2018-06-03 10:21 | BH.SGPN.GN ---
Behaviors/Verbalizations/Mental Status: [Client alert and orient x3. She maintained good eye contact, was casually and neatly dressed, motor activity within normal limits, speech normal rate and tone, mood euthymic and anxious, affect congruent, thoughts linear and logical, no evidence of delusions or hallucinations.] Client Response/Progress/Benefit: [ Client responded well to session, engaged throughout. She appeared to connect well with the discussion regarding crisis and how sometimes crisis situations can appear to sneak up on if not paying attention to warning signs or not checking-in with one's mental and emotional needs. Client indicated that she is beginning to see connections between her desire to take on a lot of responsibilities and increased levels of stress and anxiety impacting her ability to function as well as she would like. Client benefitted from participating in and processing the activity in which participants were challenged to describe the way crisis manifests for them. Client described that for her crisis is like a long road with many D [place]. Client indicated that she often feels as though she is getting close to overcoming the crisis and then I hit another detour. Client displaying progress in her ability to identify warning signs and behaviors contributing to clients feelings of overwhelming anxiety. Recommended continued IOP treatment in order to improve client ability to manage symptoms of anxiety as well as prevent decompensation.] Narrative Note: []
--- NOTE | 2018-06-03 20:11 | BH.MDN ---
Multi-Disciplinary Note - Note 30-min Individual Time Started:: 11:20 Date: 06/03/18 Purpose of session/treatment goals addressed:: Purpose of session was to assess current symptoms and stressors. Other topics included: healthy coping skills and processing recent stressor. Eye Contact:: Fair Motor Activity:: Restless Appearance:: Casual Speech:: Appropriate Mood:: Anxious, Dysthymic Affect:: Congruent Thoughts:: Linear, Logical, No evidence of hallucinations/delusions noted Staff Interventions:: Therapist used open ended questions to elicit pt's current symptoms and stressors. Therapist processed recent stressor, assisting pt with identifying distorted thought patterns and normalizing reactions to stress. Therapist challenged pt's thought patterns about needing to be the strong one for her family. Therapist assisted pt with identifying actitivites she can do for self-care. Therapist provided support by using active listening and validating emotions. Client Response:: Pt reported I'm not doing so well. Pt elaborated that she is really struggling since she found out her mom was readmitted to the hospital yesterday. Pt reported did not cope effectively yesterday evening. Stated feeling really embarrassed to admit she drank 3 1/2 beers in the evening. Pt recognized her drinking more than planned was likely to self-medicate for the anxiety she was feeling about her mom. Pt reported feeling really disappointed in herself because she didn't drink any alcohol on Friday and was doing really well. With coaching pt able to recognize continuing to ruminate about her unhealthy coping on Friday will not make her feel better and instead needs to focus on what she can do today to cope better. Pt reported she logically knows her thought process of needing to be the 'strong one in the family and not ask for help is unhelpful, but in the past she could just pull myself up from the boot straps. Reported gaining awareness that maybe she can't do that anymore, but having a difficult time adjusting to asking and accepting help. Pt reported she would be open to asking her family for help with certain chores and responsibilites so she can have more time to care for herself. Pt reported when she gets home from visiting with her mom she will maybe go on a bike ride and try out yoga as ways to calm herself down without needing alcohol to provide that calmness. Risks/Concerns:: Pt does not present with any risks or concerns at this time. Progress Toward Goals/Plan:: Some regression with pt's progress since recent sressor of pt's mom being admitted to hospital AEB pt's increased anxiety and reverting back to old coping of using alcohol to cope with anxiety. Pt showing progress with increased self-awareness of distorted thought patterns, but struggles with refuting and reframing thoughts when anxiety is elevated. Pt to continue IOP level of care to decrease anxiety, stabilize moods and prevent decompensation. Time Stopped:: 11:50
--- NOTE | 2018-06-04 09:05 | BH.SGPN.GN ---
Behaviors/Verbalizations/Mental Status: []Client alert and oriented, neatly dressed and groomed. Eye contact good. Motor activity restless. Speech within normal limits. Affect constricted, mood anxious. Thoughts linear, logical, no signs of hallucinations or delusions. Reviewed clients symptom tracker, no risk for suicidal ideation, plan, or intent as of 06/04/18. Client Response/Progress/Benefit: []Client responded well to session, receptive to feedback and supportive statements from group. Client reports feeling frantic today, but better than yesterday. Client shared she continues to struggle with ongoing stressors such as her mother's health, her family, and work. Client reported she is constantly worrying about the well-being of the people in her life which impacts client's ability to self-care and manage stress. Client stated she has been trying to incorporate self-care more in her daily routine and she plans to cut the grass today for self-care. Client shared, I struggle with self-care sometimes though because I feel selfish. The group gently challenged client and helped client identify the benefits of ongoing self-care. Client stated she accomplished her goal of doing yoga yesterday to try to calm down, but client felt like the yoga practice she selected was too intense. Client receptive to a peer who gave client a yoga shaji for anxiety. Client appeared to benefit from challenging cognitive distortions in the moment and from receiving support from peers. Client seems to be progressing as evidenced by her increased awareness of negative thinking and implementation of coping skills, but continues to struggle with self-care and setting emotional boundaries which leads to burnout. Client to continue IOP to prevent decompensation and reduce anxiety.
--- NOTE | 2018-06-04 10:15 | BH.SGPN.GN ---
Behaviors/Verbalizations/Mental Status: [Client maintained good eye contact, casually and neatly dressed, well kempt, motor activity was appropriate - decreased levels of restless compared to baseline, speech normal rate and tone, mood euthymic, affect congruent with mood, thoughts linear and logical, no evidence of delusions or hallucinations.] Client Response/Progress/Benefit: [Receptive of session and appeared to respond well to topics discussed. Client was an actively engaged participant throughout and provided input to discussion as well as took on a leadership role in the activity portion. Client worked with fellow participants on identifying potential factors impacting emotion regulation. She additionally connected with discussion regarding how poor emotion regulation can negatively impact overall mental health and symptom management. Client appeared to benefit from challenging herself during the activity to relenquish her desire to control the circumstances and rely on following directions given by fellow participants. She did well to make various connections with how anxiety caused by feeling out of control or having to trust the directions of someone else in the activity may also relate back to client increased anxiety in daily life when experiencing situations outside her control. Client continues to make progress on applying calming strategies geared towards improving symptom management and decreasing negative self talk. Client recommended continued IOP treatment in order to maintain stability as well as improve consistency of application of skills learned.] Narrative Note: []
--- NOTE | 2018-06-04 11:17 | BH.SGPN.GN ---
Behaviors/Verbalizations/Mental Status: [Client maintained clear and consistent eye contact throughout, casually and neatly dressed, motor activity was within normal limits, speech normal rate and tone, mood euthymic, affect congruent with mood, thoughts linear and logical - content reflective, no evidence of delusions or hallucinations.] Client Response/Progress/Benefit: [Client responded well to session, actively engaged throughout. She appeared to benefit from the discussion portion of session reviewing the emotional energy matrix indicated identifying with many of the common characteristics found in the heightened alert zone. She indicated specifically connecting with constantly feeling overwhelmed or stressed, taking on too many responsibilities, and struggling to slow down. Client displaying progress in her ability to identify specific coping skills she can use in order to return to baseline when identifying that she is in a heightened alert state. Client expressed that taking time to engage her senses as well as enjoying nature at a slower pace is something she has been to do. Client indicates plans to use mindful bike rides as a means of doing such. Although client is making significant progress in her ability to identify how her thoughts, feelings, and behaviors are impacting current levels of anxiety she continues to struggle with challenging distorted or unrealistic in getting patterns and is recommended continued IOP treatment in order to maintain stability as she further works on improving ability to use cognitive restructuring techniques and consistent healthy skill application.] Narrative Note: []
--- NOTE | 2018-06-04 15:13 | BH.TPR ---
Treatment Plan Review Date of Admission:: 05/08/18 Date of Treatment Plan Review:: 06/04/18
--- NOTE | 2018-06-08 09:10 | BH.SGPN.GN ---
Behaviors/Verbalizations/Mental Status: [] Pt eye contact fair, casually dressed, motor activity restless, speech normal rate and tone, mood anxious, congruent affect, thoughts linear and logical, no evidence of delusions or hallucinations. Reviewed client?s symptom tracker, no signs of suicidal ideation, plan, or intent as of today. Client Response/Progress/Benefit: []Pt reported she is feeling sad and frustrated this morning. Pt explained she had planned last week to go see her mom in the hospital, but when she was about to drive there her dad called and said it was just food poisoning and pt didn't need to drive out there. Pt shared feeling guilty for not going because the hospital had given prescriptions to pt's mom that pt didn't actually need, but didn't communicate that to pt's mom. Pt reported if she had been there she would have asked the questions so her mom wasn't taking medications unnecessarily. Pt reported she recognizes there is nothing she can do about it now besides use it as a learning experience. Pt shared she is also upset she had to work on Friday so didn't get to see her son before he left to go to college. Pt reported she will get to see him this weekend. Pt reported she went on a bike ride and watched a rita talk which was self-care for her throughout the weekend. Pt seemed to benefit from expressing thoughts and feelings, as well as support received from peers. Pt progressing with demonstrating increased self-awareness and giving self time for self-care. Pt to continue IOP level of care to decrease anxiety, maintain gains, and prevent decompensation. Narrative Note: []
--- NOTE | 2018-06-08 10:23 | BH.SGPN.GN ---
Behaviors/Verbalizations/Mental Status: [Client maintained good eye contact, casually and neatly dressed, motor activity restless, speech normal rate and tone, mood euthymic, anxious, congruent affect, thoughts linear and intact, no evidence of delusions or hallucinations.]] Client Response/Progress/Benefit: [Pt listened attentively and contributed to discussion on conflict resolution. Able to identify the importance of effective conflict resolution to promote positive support and maintain mental health. Identified connecting with examples provided by fellow participants and shared experiencing similar situations. Pt identified she originally thought she was the ?collaborative? approach but upon further reflection can connect with all of them. Pt able to identify how avoidance has prevented her from being able to communicate needs with her supports, specifically with her when wanting to engage in self-care behaviors. Pt seemed to benefit from learning about the different conflict resolution styles and pros/cons of each. Progress in client levels of insight regarding own approach to conflict.] Narrative Note: []
--- NOTE | 2018-06-08 11:30 | BH.SGPN.GN ---
Behaviors/Verbalizations/Mental Status: [Client maintained good eye contact, casually and neatly dressed, motor activity restless, speech normal rate and tone, mood euthymic, anxious, congruent affect, thoughts linear and intact, no evidence of delusions or hallucinations.] Client Response/Progress/Benefit: [Pt receptive of session and able to collaborate with others during challenge activity, often appearing to take on an assertive role in the activity though did well to maintain balance and collaborate with peers on other occasions. This was evidenced by verbalizing her thoughts and opinions throughout the conflict activity and making compromises on other occasions. Pt did well to identify that she has improved conflict approach when in a comfortable setting but would like to improve conflict approach when worried how the other person might respond. Pt seemed to benefit from brainstorming healthy conflict resolution skills and displaying progress in ability to identify one small step towards improving conflict approach today. Discussed plans to discuss importance of self-care activities with her .] Narrative Note: []
--- NOTE | 2018-06-08 14:56 | BH.MDN ---
Multi-Disciplinary Note - Note 45-min Individual Time Started:: 12:38 Date: 06/08/18 Purpose of session/treatment goals addressed:: Purpose of session was to assess current symptoms and stressors. Other topics included: thought challenge and mindfulness activities. Eye Contact:: Good Motor Activity:: Appropriate Appearance:: Casual Speech:: Appropriate Mood:: Euthymic Affect:: Congruent Thoughts:: Linear, Logical, No evidence of hallucinations/delusions noted Staff Interventions:: Therapist used open ended questions to elicit pt's current symptoms and stressors. Therapist processed pt's recent stressor of her mom being in the hospital, assisting pt with identifying distorted thinking. Therapist elicited pt's view of her progress. Therapist discussed importance of having mulitple coping strategies to utilize and ensuring not all the coping skills are of high intensity. Therapist provided support by using active listening and validating emotions. Provided homework of taking a mindfulness bike ride. Client Response:: Pt reported she has been doing overall better with managing her emotions and thoughts throughout the week. Pt shared she was aware of her distorted and unhelpful thought patterns when she felt guilty for not just going to see her mom on Friday when pt's mom was released from hospital. Pt reported instead of beating herself up over the situation she is going to use it as a learning opportunity. Pt shared she also had many unhelpful and distorted thought patterns when she accidently ran into the garage door. Pt reported she was able to reframe the distorted thoughts. Pt shared she went on a bike ride for self-care. Pt agreed she doesn't have many calming coping skills and often is in a competition mode with herself. Pt reported she is open to trying a 20 minute or less leisure mindfulness bike ride. Pt noted progress with increased awareness of unhealthy thinking patterns, improved ability to thought challenge, making time for self-care, and decreased use of alcohol as a coping skill. Risks/Concerns:: Patient does not present with any current risks or concerns. Progress Toward Goals/Plan:: Patient has demonstrated progress with increased awareness of her negative and distorted thought patterns. Client able to challenge her unhelpful thinking patterns on a more consistent basis. Client playing more focused into having time to do self-care activities for herself. Continuing to struggle with anxious thinking, high expectations of self, and difficulty utilizing coping skills that are not of a high intensity. Client to continue IOP level of care to decrease anxiety, build healthy coping skills, and prevent decompensation. Time Stopped:: 01:22
--- NOTE | 2018-06-09 09:03 | BH.SGPN.GN ---
Behaviors/Verbalizations/Mental Status: [Client maintained good eye contact, casually and neatly dressed, motor activity restless - sitting on hands and bouncing legs, speech normal rate and tone, mood anxious expressed as apprehensive, affect congruent, thoughts linear and logical -content preoccupied, no evidence of delusions or hallucinations. Therapist reviewed client?s symptom tracker to assess for intensity of mental health symptoms and identify risk for suicide. No signs of suicidal ideation, plan, or intent to date.] Client Response/Progress/Benefit: [Client receptive of session, quiet throughout though attentive AEB maintaining eye contact and nodding throughout discussion. 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 Client benefitted from working with the group to brainstorm strategies to prepare for the appointment as well as prevent from ruminating on it. Client discussed she will write down questions to bring with her so she will not be worried about missing something and listen to music on the way up. Client progress noted in increased ability to recognizing warning signs and triggers for anxiety as well as effective anxiety management and prevention strategies. Recommended continued IOP tx to continue progressing towards goals and maintain stability.] Narrative Note: []
--- NOTE | 2018-06-09 10:10 | BH.SGPN.GN ---
Behaviors/Verbalizations/Mental Status: []Client alert and oriented, neatly dressed and groomed. Eye contact good. Motor activity restless. Speech within normal limits. Affect constricted, mood anxious Thoughts linear, logical, no signs of hallucinations or delusions. Client Response/Progress/Benefit: []Client responded well to session, positively contributing to discussion. Client connected with the quote sharing, when you distance yourself from problems and avoid them you make more problems. Client stated belief she is good at solving problems. Client discussed the components of problems with the group and identified barriers that keep people from solving problems such as lack of communication, high emotions, and anxiety. Client helped the group identify the ABCDEs of problem solving, which included various techniques to increase problem solving skills. Client shared when solving a problem, it helps to look at what supports are available and techniques that have worked in the past. Client engaged in the experiential activity, appearing anxious as evidenced by her hesitancy, but providing ideas and positive feedback. Client appeared to benefit from gaining awareness of the components of problems and practicing in the moment strategies. Client progressing with challenging negative thinking per her report, but continues to struggle with managing anxiety and using calming strategies.
--- NOTE | 2018-06-09 11:10 | BH.SGPN.GN ---
Behaviors/Verbalizations/Mental Status: []Client alert and oriented, neatly dressed and groomed. Eye contact good. Motor activity restless, client appeared . Speech within normal limits. Affect constricted, mood anxious. Thoughts linear, logical, no signs of hallucinations or delusions. Client left at 12:05pm due to an appointment for her mother. Client Response/Progress/Benefit: []Client responded well to session, appearing anxious, but providing good insight. Client connected the activity to solving problems in real life sharing, some problems take a long time to solve they take mental and physical energy. Client reported the activity helped her remember to celebrate the small steps and use self-talk to be patient when solutions take longer than expected. Client identified not enjoying going into work as a problem she is currently facing and feeling happier at work as her solution. Client identified barriers keeping client from this goal as toxic people, not reaching out to positive supports, and high expectations. Client identified steps to help client achieve her goal such as writing out a plan with specific steps, reminding herself daily what client likes about her job, and spending more time with positive supports at work. Client appeared to benefit from identifying solutions to her barriers. Client to continue IOP to promote mood stability and reduce anxiety.
--- NOTE | 2018-06-16 09:01 | BH.SGPN.GN ---
Behaviors/Verbalizations/Mental Status: [Client maintained good eye contact - tearful when discussing current stressors, casually and neatly dressed, motor activity within normal limits, speech normal rate and tone, mood dysthymic,anxious expressed as a mix of emotions and despair, affect congruent, thoughts linear and logical, no evidence of delusions or hallucinations. Therapist reviewed clients symptom tracker to assess for intensity of mental health symptoms and identify risk for suicide. No signs of suicidal ideation, plan, or intent to date.] Client Response/Progress/Benefit: [Client receptive of session. She initially took on a passive, observatory role AEB limit input provided while others shared however nodding and maintaining consistent eye contact. Client become more verbally engaged as she began processing her own thoughts, feelings, and stressors. She openly discussed with the group struggling to prepare herself emotionally and mentally for her daughter leaving for college on . Client reflected upon the changes she has seen in herself in the past 24 years since becoming a mother and fear that she will no longer have that piece of herself after her daughter leaves. CLient benefitted from processing and working to identify alternative ways to look at the upcoming changes more positively. CLient able to identify that the success of both her children reflects positively upon her as a mother. She is displaying progress in her ability to identify potential barriers to managing mental health symptoms, such as ineffective communication with her about client needs and concerns, as well as means for coping with these barriers. CLient identified plans to begin brotching the subject of what their life as a couple with look like after the kids are moved out. CLient recommended continued IOP treatment in order to maintain stability and continue to improve client ability to use congnitive restructuring when falling into negative thinking styles. ] Narrative Note: []
--- NOTE | 2018-06-16 16:52 | BH.MDN ---
Multi-Disciplinary Note - Note 45-min Individual Time Started:: 15:15 Date: 06/16/18 Purpose of session/treatment goals addressed:: Purpose of session was to assess current symptoms and stressors. Other topics included: processing recent stressor and creating self-care plan for rest of week. Eye Contact:: Fair Motor Activity:: Appropriate Appearance:: Casual Speech:: Appropriate Mood:: Anxious, Dysthymic Affect:: Constricted Thoughts:: Linear, Logical, No evidence of hallucinations/delusions noted Staff Interventions:: Therapist used open ended questions to elicit pt's current symptoms and stressors. Therapist processed pt's current stressors, assisted pt with identifying Time Stopped:: 16:00
--- NOTE | 2018-06-22 09:05 | BH.SGPN.GN ---
Behaviors/Verbalizations/Mental Status: [Client maintained good eye contact, appearance neat and casual, motor activity appropriate, speech normal rate and tone, mood euthymic, congruent affect, thoughts linear and intact, no evidence of delusions or hallucinations.] Client Response/Progress/Benefit: [Attentive and providing input to discussion as well as supportive feedback. Emotion for today is peaceful as client reports she has been able to successfully make it through a really tough week and is happy with how she managed her emotions and coped throughout it. Went on to describe multiple stressors related to work and her mother?s health. She shared feeling proud of herself for setting and maintaining firm boundaries with herself and her boss and make time to engage in self-care via cutting the grass. Client benefitted from celebrating successes and processing sressors with the group. Progress noted in client beginning to apply internal coping skills during high tress moments. Continue treatment to improve skill application and maintain stability.] Narrative Note: []
--- NOTE | 2018-06-22 10:25 | BH.SGPN.GN ---
Behaviors/Verbalizations/Mental Status: []Pt eye contact good, casually dressed, motor activity restless at times, speech normal rate and tone, mood anxious, congruent affect, thoughts linear and intact, no evidence of delusions or hallucinations. Client Response/Progress/Benefit: []Pt engaged throughout session AEB pt contributing thoughts and ideas to discussion. Pt reported having goals is important because gives a purpose and direction in life. Pt reported setting goals has been important to her professionally and personally, specifically sets many goals for her exercise. Pt engaged during discussion about SMART goals. Pt reported she tends to have high expectations of self and now realizes how she is setting herself up for failure when has unrealistic expectations. Pt seemed to benefit from rehearsing setting small goals in the moment. Narrative Note: []
--- NOTE | 2018-06-22 11:25 | BH.SGPN.GN ---
Behaviors/Verbalizations/Mental Status: []Pt eye contact good, casually dressed, motor activity appropriate, speech normal rate and tone, mood anxious, congruent affect, thoughts linear and intact, no evidence of delusions or hallucinations. Client Response/Progress/Benefit: []Pt listened attentively to others and contributed thoughts and ideas to discussion. Pt reported her goal is to go for a walk or take a mindful bike ride for 20 minutes and practice the 5,4,3,2,1 grounding tool while biking or walking. Pt reported potential obstacles could be: not having time, weather, and negative thoughts. Pt shared to overcome obstacle of time she can move other things she needs to get done to a different day. Pt stated to overcome obstacle of weather she can do yoga instead of an activity outside. To overcome negative thoughts pt reported she can reframe and challenge. Pt seemed to benefit from setting a SMART goal and identifying strategies that will help her overcome any potential obstacles that might occur. Pt to continue IOP level of care to maintain gains, decrease anxiety, and prevent decompensation. Narrative Note: []
--- NOTE | 2018-06-24 09:00 | BH.SGPN.GN ---
Behaviors/Verbalizations/Mental Status: [] Pt eye contact fair, casually dressed, motor activity restless, speech normal rate and tone, mood anxious, congruent affect, thoughts linear and logical, no evidence of delusions or hallucinations. Reviewed client?s symptom tracker, no signs of suicidal ideation, plan, or intent as of today. Client Response/Progress/Benefit: [] Client reported she is not accomplishing goal of doing something calming however reports she did relax and watch baseball game yesterday. Client shared her mom was released to the hospital but not as of the evening was a little upset that she could not be there to hear all the discharge instructions. Client shared current positives to be: Knowing that her daughter is doing well adjusting to college and having her validate her thoughts and emotions this morning. Client identified his stressors returning to work tomorrow for two 12-hour days in a row. Client reported today she plans to mow the grass and maybe take a short relaxing bike ride. Client demonstrating progress with being able to recognize positives, making a plan to use her coping strategies and improved ability to manage her anxiety. Client to continue IOP level of care to maintain gains and prevent decompensation. Narrative Note: []
--- NOTE | 2018-06-24 10:25 | BH.SGPN.GN ---
Behaviors/Verbalizations/Mental Status: []Client alert and oriented, neatly dressed and groomed. Eye contact good. Motor activity appropriate. Speech within normal limits. Affect constricted, mood euthymic,irritable. Thoughts linear, logical, no signs of hallucinations or delusions. Client Response/Progress/Benefit: []Client responded well to session, providing good insight to discussion. Client connected with the quote sharing, ?you can change your negative thoughts, but it takes time.? ?Client stated when she first started IOP she had ?so many negative thoughts? but now client is able to challenge and replace the negative thoughts. Client participated as the group discussed the different types of distortions and client reported she most often uses jumping to conclusions, minimizing, and disqualifying the positives. Client able to recognize how cognitive distortions negatively impact her mental health. Client appeared to benefit from gaining insight to the different types of cognitive distortions and reflecting on progress. Client to continue IOP to promote gains and increase mood stability.
--- NOTE | 2018-06-24 11:25 | BH.SGPN.GN ---
Behaviors/Verbalizations/Mental Status: []Client alert and oriented, neatly dressed and groomed. Eye contact good. Motor activity appropriate. Speech within normal limits. Affect constricted, mood irritable. Thoughts linear, logical, no signs of hallucinations or delusions. Client Response/Progress/Benefit: []Client responded somewhat well to session, appeared withdrawn during activity. Client connected that overcoming cognitive distortions takes a lot of time, practice, and energy. Client shared ?I?ve had to stop myself lots of times to change my thoughts.? Client participated with the group in identifying cognitive distortions and replacing them. Client challenged her thought of ?work is going to be terrible? which client identified as predicting the future. With group help, client reframed the thought to ?I can surround myself with people I like and it will go better? Client appeared to benefit from gaining insight to the effort it takes to replace negative thoughts and from challenging a negative thought during group.
--- NOTE | 2018-06-24 16:00 | BH.MDN ---
Multi-Disciplinary Note - Note 30-min Individual Time Started:: 16:00 Date: 06/24/18 Eye Contact:: Good Motor Activity:: Restless Appearance:: Casual Speech:: Appropriate Mood:: Anxious Affect:: Congruent Thoughts:: Linear, Logical, No evidence of hallucinations/delusions noted Time Stopped:: 16:30
== END 2018-06-26 23:59 ==
LOC: BHIOP 09:00
PROVIDERS: Family Provider Internal Medicine; PCP Internal Medicine; Visit Provider Psychiatry & Neurology Psychiatry
DX: F33.1 Major depressive disorder, recurrent, moderate (principal); F41.9 Anxiety disorder, unspecified
CPT/HCPCS: H0035; 90832; 90834; 90837; 90853

== ENCOUNTER → 2018-06-02 08:25 | Outpatient (CLI) | payer BC, SELFPAY ==
[2018-06-03 09:51] LABS: Vitamin D,25 Hydroxy 58.4 ng/mL (29.95-100.01)
== END ==
PROVIDERS: Family Provider Family Medicine; PCP Family Medicine; Visit Provider Psychiatry & Neurology Psychiatry
DX: Z79.899 Other long term (current) drug therapy (principal); E55.9 Vitamin D deficiency, unspecified
CPT/HCPCS: 36415; 82306; 84443

== ENCOUNTER 2018-06-30 09:00 | Outpatient (RCR) | payer BC, SELFPAY ==
--- NOTE | 2018-06-30 09:05 | BH.SGPN.GN ---
Behaviors/Verbalizations/Mental Status: [] Pt eye contact good, casually dressed, motor activity appropriate, speech normal rate and tone, mood euthymic, congruent affect, thoughts linear and intact, no evidence of delusions or hallucinations. Reviewed client?s symptom tracker, no signs of suicidal ideation, plan, or intent as of today. Client Response/Progress/Benefit: [] Client reported the weekend was a blur, shared she worked four 12 hour shifts over the weekend did not do too much. Client shared on Friday they did have some friends over and she enjoyed hanging out with them. Client reported she was tired after work but really focused on challenging any distorted thought patterns and recognize her mood was improved after work. Client shared feeling a little anxious about her mom because although her mom is doing better in rehab, client shared typically after her mom returns home it results in a decline in functioning because her mom does not complete the physical therapy as often. client reported despite have a long weekend of work she is feeling relaxed this morning. Client demonstrating progress with recognizing and defeating cognitive distortions and using her healthy coping more consistently. Client to continue IOP level of care to maintain gains and prevent decompensation. Narrative Note: []
--- NOTE | 2018-06-30 10:12 | BH.SGPN.GN ---
Behaviors/Verbalizations/Mental Status: [Client alert and oriented, casually dressed and groomed. Eye contact good. Motor activity appropriate. Speech within normal limits. Affect congruent, mood anxious, euthymic. Thoughts linear, logical, no signs of hallucinations or delusions. ] Client Response/Progress/Benefit: [Pt responded well to session, engaged throughout. She appeared to connect with the topic of Communication and indicated relating with the quote of the day. Pt expressed that assuming the other person knows what you are trying to communicate can create additional problems and stressors, as well as impact your mood. She noted experiencing this with her supports at times. Pt actively listening during discussion on different communication styles and provided thoughts regarding each style's pros and cons. Pt shared relating to the communication style of passive-aggressive in some situations and assertive in others. Pt appeared to benefit from psycho-education provided regarding communication and it's impacts on mental health. Progress noted in pt ability to identify her own communication styles and it's impact on her ability to connect with supports or ask for help. Pt recommended continued IOP tx to promote gains, decrease sx of anxiety, and prevent decompensating.] Narrative Note: []
--- NOTE | 2018-06-30 11:26 | BH.SGPN.GN ---
Behaviors/Verbalizations/Mental Status: []Client alert and oriented, neat and casual appearance. Eye contact good. Motor activity appropriate. Speech within normal limits. Affect congruent, mood euthymic. Thoughts linear, logical, no signs of hallucinations or delusions. Client Response/Progress/Benefit: []Client active participant AEB her positive contributions and engagement throughout. Client took an active role during the activity that encouraged clients to practice clear, specific communication. Group identified strategies that helped the group communicate more effectively during the activity. Client identified communication goal which is to practice being more specific in her communication with supports. Client seemed to benefit from increased insight into how her communication style impacts mental health and identifying strategies for increasing effective communication skills. Progress noted as client reports increased small goal completion and willingness to reach out to supports.Will continue IOP tx to prevent decompensation, improve use of self-care, and promote consistent use of coping skills. Narrative Note: []
--- NOTE | 2018-07-03 09:07 | BH.SGPN.GN ---
Behaviors/Verbalizations/Mental Status: [Client maintained fair eye contact, casually dressed, motor activity WNL - closed body language AEB crossed legs and arms, looking down, speech normal rate and tone - limited verbal input, mood withdrawn, dysthymic, affect congruent, thoughts linear and logical, no evidence of delusions or hallucinations. Therapist reviewed clients symptom tracker to assess for intensity of mental health symptoms and identify risk for suicide. No signs of suicidal ideation, plan, or intent to date.] Client Response/Progress/Benefit: [Client willing to attend session, however declined to provide verbal input throughout and indicated wanting to pass when her turn to process. Client did not elaborate as to why but was able to remain an active listener throughout and appeared to benefit from hearing others share their own experiences in coping with stressors and what strategies have been helpful in managing mental health symptoms. Client progress in session limited due to lack of participation; however, client has been making strides forward regarding overall management of mental health symptoms and in challenging distorted thinking patterns or unrealistic expectations for self. Client recommended continued IOP treatment to maintain stability and increase consistent application of skills learned.] Narrative Note: []
--- NOTE | 2018-07-03 11:25 | BH.SGPN.GN ---
Behaviors/Verbalizations/Mental Status: []Pt eye contact good, casually dressed, motor activity appropriate, speech normal rate and tone, mood euthymic, congruent affect, thoughts linear and logical, no evidence of delusions or hallucinations. Client Response/Progress/Benefit: []Pt contributed positively to discussion and attentive to others. Pt identified her personal pitfalls to include: perfectionism, high expectations of self, and limited self-care. Pt reported she has made progress with all of the identified pitfalls and identified limited self-care to be the pitfall she needs to pay attention to the most because she knows it's easy for her to give up on her self-care to help others. Pt recognized that pitfalls will happen, but she can learn from the personal pitfall and can turn a failure into success. Pt shared her goal is to: focus on enjoying herself and be in the moment when around others. Pt seemed to benefit from increased awareness of her pitfalls and identifying what can help her overcome her pitfalls. Progress noted with pt able to identify progress with more realistic expectations of self and improved self care. Pt to continue IOP level of care to maintain gains and prevent decompensation. Narrative Note: []
--- NOTE | 2018-07-03 11:44 | PCM.PN.BLA ---
Progress Note Patient is seen in follow-up for major depressive disorder recurrent moderate F 33.1, anxiety unspecified. History has been obtained per interview with patient, discussion with staff, review of chart. Case discussed with treatment team. Chief complaint-depression and anxiety Things are getting better. Interim history Overall mood improvement within the past month. Depressive symptoms wax and wane but of decreased intensity and frequency. Reports decreased isolation and more deepak. Attributes improvement to changing her own expectations of herself and decreased work hours. Feels coping skills gained through IOP effective. Moderate ruminative anxiety regarding health of her mother who is recently in the hospital. Admits to some anxiety of being an empty Francesco as her daughter recently started school at [email or web address]. Her son is currently also attending school at [employer]. No suicidal or homicidal ideation. No symptoms consistent with psychosis. Sleeping from 10 PM to 7:30 AM. Appetite normal. Denies nausea or vomiting. Continues consuming 2-3 craft beers per night. Labs June 02, 2018 vitamin D 58, TSH normal Mental status exam Alert and oriented . No acute distress. Ambulatory with normal gait and station. Appears stated age. Casually dressed and groomed. Appropriate hygiene. Cooperative with interview. Good eye contact. No psychomotor agitation or retardation. Mood improved. Affect congruent. Speech is clear and with regular rate and rhythm. Language fluent. Thought process organized. Associations logical. Thought content significant for ruminative anxiety and themes of depression. No suicidal or homicidal ideation related or detected.. No symptoms consistent with psychosis noted or detected. Immediate recent and remote memory grossly intact. Attention and concentration are fair. Estimated intelligence and fund of knowledge average. Judgment and insight fair. Diagnosis Major depressive disorder recurrent moderate F 33.1 Anxiety unspecified Plan Continue IOP as the structured setting is necessary to prevent decompensation. Risk-benefit alternative of medications discussed with patient. Patient acknowledges understanding. Continue Zoloft 75 mg p.o. daily. Encouraged alcohol reduction and abstinence. Consider use of SAD light in future. Discussed with patient. Encouraged to establish with outpatient psychiatric provider for when IOP complete. 16 minutes of supportive psychotherapy provided. Patient acknowledges understanding and is in agreement with plan. Feels able to maintain safety. Agrees to seek help or emergency care if feeling unsafe to self or others.
--- NOTE | 2018-07-03 15:42 | BH.MDN ---
Multi-Disciplinary Note - Note 45-min Individual Time Started:: 12:30 Date: 07/03/18 Purpose of session/treatment goals addressed:: Purpose of session was to review progess since starting IOP, discuss discharge plan, and assess current symptoms and stressors. Eye Contact:: Good Motor Activity:: Appropriate Appearance:: Casual Speech:: Appropriate Mood:: Anxious Affect:: Congruent Thoughts:: Linear, Logical, No evidence of hallucinations/delusions noted Staff Interventions:: Therapist used open ended questions to assess pt's current symptoms and stressors. Therapist discussed with pt aftercare plan for once pt discharges from [facility] next week. Therapist reviewed healthy coping skills and discussed weekend plan that will include self-care. Therapist provided pt with handout listing 3 different counselors that pt is to review and schedule an individual counseling session with for after discharge from [facility]. Provided support by using active listening and validating emotions. Client Response:: Pt reported she has been doing much better with decreased depression and anxiey. Pt shared she recognizes she has made progress with being able to reduce her expectations of self, increased self-care, and increased awareness of her distorted thought patterns. Pt reported her stress at work as decreased especially since reducing her expectations and not letting little things ruin her day. Pt shared she also has been able to be less serious, recognizing she doesn't need to be at such a heightened state of alertness throughout the entire day. Pt shared she no longer is irritable when she leaves work, which has improved relationship with her family. Pt agreed she has made signficiant progress and feels ready to discharge from program next week. Pt reported she is open to seeing a counselor once a week after she discharges from [facility]. Pt agreeable to pick a counselor and make an appointment based on the list [facility] therapist provided pt. Risks/Concerns:: Pt does not currently present with any risks or concerns. Progress Toward Goals/Plan:: Pt has made signficiant progress with decreased depression, decreased anxiety, and overall improved mood stability. Pt has decreased her distorted thought of needing to be perfect, which has helped pt decrease expectations of self to a realistic level. Pt is engaging in more self-care which seems to help pt be more relaxed and able to manage stressors more effectively. Pt reported feeling more deepak and happiness throughout her days. Pt continues to drink 2-3 craft beers per night, however progress noted with having several times since starting the program in which she didn't drink any alcohol. Pt also recognizes she is not using alcohol as a form of coping, but the goal is to continue to decrease alcohol consumption. Plan is for pt to discharge from IOP level of care next week. Pt to continue IOP level of care to maintain gains, establish aftercare, and prevent decompensation. Time Stopped:: 13:15
--- NOTE | 2018-07-10 10:18 | BH.SGPN.GN ---
Behaviors/Verbalizations/Mental Status: [Client maintained good eye contact, casually and neatly dressed, motor activity WNL, speech normal rate and tone - good verbal input, mood euthymic, patient, affect congruent, thoughts linear and logical, no evidence of delusions or hallucinations.] Client Response/Progress/Benefit: [Client was receptive of session and did well to connect with the group topic of social supports. She entered session a few minutes after topic introduction and missed material reviewing what social supports are and the importance of social support on managing mental health sx; however, did well to quickly grasp onto concepts discussed. CLient able to take an active role in the activity portion of group and benefitted from challenging herself to try and direct fellow participants despite not having all of the information needed. Cient related this back to fear of the unknown. Client displaying progress in her ability to identify and challenge unrealistic expectations of herself as well as improve her ability to be comfortable in situations where she is not in control. CLient recommended continued forcus in this area to continue to make gains and maintain progress made.] Narrative Note: []
--- NOTE | 2018-07-10 11:07 | BH.AFTERPLAN ---
Aftercare Plan - Demographics Treatment End Date:: 07/10/18 Psychiatrist:: Qi Young Psychiatrist Office #:: [phone] [facility]/IOP Therapist:: Wendie Sheldon Therapist Phone #:: [phone] - Medications Home Medications: Home Medications Metronidazole [Metrogel] 1 mg TOPICAL DAILY 01/12/14 Multivitamins,Therapeutic [Multivitamin] 1 tab PO DAILY 01/12/14 ascorbic acid (vitamin C) 100 mg tablet 100 mg PO QDAY 12/02/17 calcium carbonate 500 mg calcium (1,250 mg) chewable tablet 500 mg PO BID tab 12/02/17 Acamprosate Calcium 333 - 666 mg PO TID 05/08/18 Sertraline HCl [Zoloft] 50 mg PO DAILY 05/08/18 traZODone [Desyrel] 25 - 100 mg PO QHS PRN 05/08/18 - Plan Details Progress/Aftercare Plan Details:: You have made significant progress from initial day in program to today. You report decrease in both depressive and anxious symptoms. You have increased awareness of negative and unhealthy thought patterns with ease in recognizing and challenging those types of thoughts. You can take a step back in various situations, which helps you see different options and prioritize what's most important to deal with first. You have found ways to decrease stress at work which has a positive impact on her home life with decreased irritabilty and decreased need to use unhealthy coping skills to calm down. You recognize the importance of taking time for yourself and can see how viewing self-care as selfish is distorted. Remember to continue using the healthy skills you have developed and follow through with aftercare plan of individual counseling. Strategies for Success:: 1. Self-care!!! Remind yourself self-care is essential to healthy mind and body. It is a necessity not selfish! 2. Continue to set realistic expectations of self. When you have set high expectations in the past it has resulted in increased stress and pressure that is unneeded. Remember to set yourself up for success versus failure. 3. Continue to have awareness of your distorted thought patterns and reframe. 4. Grateful journal. 5. Open and direct communciation is gusman. No one can read your mind. 6. Continue to let the small things go. 7. Continue use of healthy coping strategies. 8. Review IOP binder for refresher of skills. 9. nursing home goal of having one day a week that is unscheduled. 10. Continue to set SMART daily goals. - Appointments Appointments/Referrals to Other Services:: 1. Scheduled to see outpatient counselor Mariah John on 07/23/18.
--- NOTE | 2018-07-10 11:19 | BH.SGPN.GN ---
Behaviors/Verbalizations/Mental Status: [Client maintained good eye contact, casually dressed - grooming and hygiene well tended to, motor activity WNL, mood euthymic, positive, affect congruent, bright thoughts linear and logical - reflective upon material discussed, no evidence of delusions or hallucinations. ] Client Response/Progress/Benefit: []Client responded well to session and remained engaged in the discussion throughout. She did well to work with fellow participants on processing the group activity. Client benefited from identifying barriers or supports in communicating during the activity, as well as ways this could be applied to communicating mental health needs with supports. Client expressed wanting to do things on her own as a barrier and expressed personal goals of increasing time set with her personal supports. She is displaying progress in improved application of tx materials outside tx environment. Recommended continued IOP tx to promote change behaviors and continue progress towards tx goals. Narrative Note: []
--- NOTE | 2018-07-10 11:22 | BH.IGGP_ITS ---
Aftercare Plan - Demographics Treatment End Date:: 07/10/18 Psychiatrist:: Qi Young Psychiatrist Office #:: [phone] [facility]/IOP Therapist:: Wendie Sheldon Therapist Phone #:: [phone] - Medications Home Medications: Home Medications Metronidazole [Metrogel] 1 mg TOPICAL DAILY 01/12/14 Multivitamins,Therapeutic [Multivitamin] 1 tab PO DAILY 01/12/14 ascorbic acid (vitamin C) 100 mg tablet 100 mg PO QDAY 12/02/17 calcium carbonate 500 mg calcium (1,250 mg) chewable tablet 500 mg PO BID tab 12/02/17 Acamprosate Calcium 333 - 666 mg PO TID 05/08/18 Sertraline HCl [Zoloft] 50 mg PO DAILY 05/08/18 traZODone [Desyrel] 25 - 100 mg PO QHS PRN 05/08/18 - Plan Details Progress/Aftercare Plan Details:: You have made significant progress from initial day in program to today. You report decrease in both depressive and anxious symptoms. You have increased awareness of negative and unhealthy thought patterns with ease in recognizing and challenging those types of thoughts. You can take a step back in various situations, which helps you see different options and prioritize what's most important to deal with first. You have found ways to decrease stress at work which has a positive impact on her home life with decreased irritabilty and decreased need to use unhealthy coping skills to calm down. You recognize the importance of taking time for yourself and can see how viewing self-care as selfish is distorted. Remember to continue using the healthy skills you have developed and follow through with aftercare plan of individual counseling. Strategies for Success:: 1. Self-care!!! Remind yourself self-care is essential to healthy mind and body. It is a necessity not selfish! 2. Continue to set realistic expectations of self. When you have set high expectations in the past it has resulted in increased stress and pressure that is unneeded. Remember to set yourself up for success versus failure. 3. Continue to have awareness of your distorted thought patterns and reframe. 4. Grateful journal. 5. Open and direct communciation is gusman. No one can read your mind. 6. Continue to let the small things go. 7. Continue use of healthy coping strategies. 8. Review IOP binder for refresher of skills. 9. senior care goal of having one day a week that is unscheduled. 10. Continue to set SMART daily goals. - Appointments Appointments/Referrals to Other Services:: 1. Scheduled to see outpatient counselor Mariah John on 07/23/18.
--- NOTE | 2018-07-10 12:07 | BH.MDN ---
Multi-Disciplinary Note - Note 60-min Individual Time Started:: 09:30 Date: 07/10/18 Purpose of session/treatment goals addressed:: Purpose of session was to identify treatment progress, identify strategies for success and solidify aftercare plan. Eye Contact:: Good Motor Activity:: Appropriate Appearance:: Casual Speech:: Appropriate Mood:: Euthymic Affect:: Congruent Thoughts:: Linear, Logical, No evidence of hallucinations/delusions noted Staff Interventions:: Therapist used open ended questions to elicit pt's thoughts about treatment progress since starting IOP. Therapist collaborated with pt to identify strategies and skills that can help the pt maintani success and stability. Therapist reviewed aftercare plan for continued treatment. Therapist provided support by using active listening. Client Response:: Pt reported she has noticed signficiant progress since she entered IOP. Pt shared her depression and anxiety symptoms have signficiantly decreased. Pt reported experiencing increased happiness and enjoyment in activities. Pt has found she can easily reframe negative thought patterns, which something she didn't think she could do when she first started the program. Pt shared she has been able to set realistic expectations of self, recognizing perfection is not attainable and she sets herself up for failure by having unrealistic expectations. Pt has increased her focus on self-control, recognizing her view of self-care as being selfish to be distorted. Pt identified strategies to help her maintain success to include: self-care, challenging distorted thoughts, communicating, and referring back to IOP binder to refresh her skills. Pt agreeable to follow through with identified aftercare plan. Risks/Concerns:: Pt does not present with any risks or concerns at this time. Progress Toward Goals/Plan:: Pt has demonstrated signficiant progress with reporting decrease in depressive and anxious symptoms. Pt able to recognize and reframe negative thought patterns which has had positive impact on her work and home life. Pt also has significantly improved with reducing expectations of self to be more realistic because she was striving for perfection which often led to disappointment and unnecessary stress. Pt also has reported a reduction in alcohol consumption from 3-4 craft beers a night down to 1-2 craft beers. Pt shared she doesn't drink alcohol as a form of coping like she was doing when first started program. Pt reports feeling more energized, decreased agitation, enjoyment in activities, and has returned to baseline functioning. Pt to be discharged from [facility] level of care due to accomplishing treatment goals. Pt to follow through with created aftercare plan. Time Stopped:: 10:30
--- NOTE | 2018-07-10 15:28 | BH.DS ---
Discharge Summary - Demographics Date of Admission:: 05/08/18 Discharge Date: 07/10/18 Presenting Problems at Admission:: Pt self-referred to the behavioral health IOP program due to worsening anxiety, depression, and not feeling like myself. 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 Pt attributed her worsening anxiety and depression to her mom's stroke. Pt reported she started drinking alcohol daily shortly after her mom's stroke. Pt endorsed depressed mood, anhedonia, increased irritablity, and decreased appetite. Pt reported she feels anxious about everything and finds herself not enjoying life anymore. Stated I'm just going through the motions. Pt reported she is able to complete the necessary tasks throughout her day, but when she gets home has the urge to isolate. Pt stated she is seeking help because she doesn't want to decompensate any further. Discharge Diagnoses:: Major depressive disorder recurrent moderate F 33.1. Anxiety unspecified Reason for Discharge:: Pt has made significant progress on treatment goals and no longer meets medical necessity for IOP level of care. - Treatment Progress During Treatment & Response: At intake on the DSM cross cutting measure pt scored a 5 out of 8 on the depression scale. At discharge pt scored a 0 out of 8 on the depression scale which demonstrates signficiant reduction in depressive symptoms. At intake on the DSM cross-cutting measure pt scorted a 8 out of 12 on the anxiety scale. At discharge pt scored a 1 out of 12 on the anxiety scale which demonstrates signficiant reduction in anxious symptoms. Pt has also made progress with improved communication, increased positive thinking, ability to challenge and reframe negative thought patterns, increased self-care, and realistic expectations of self. Pt shared she has also decreased alcohol consumption from 3-4 craft beers daily to 1-2 craft beers daily. Pt reported does not believe she is using alcohol as a form of coping like she was when started IOP. Pt responded well to treatment throughout program as evidenced by pt contributing thoughts and ideas to discussion and participating in activites. Issues Still to be Addressed:: Pt could benefit from continued focus on maintaining self-care plan, coping with being an empty mignon, and continuing to set realistic expectations of self. Pt also could benefit from exploring coping skills help pt relax. Pt tends to use coping skills that are higher intensity (i.e. 17 mile bike ride), which can be cathartic for pt however doesn't have the calming affect. Pt has identified going on a mindfulness bike ride to be more relaxing and could benefit from increasing her repertoire of calming skills especially with winter approaching. Discharge Recommendations/Instructions:: Pt is recommended to follow through with individual counseling and continue seeing primary care physician for medication management. Pt also encouraged to use the strategies that can help pt maintain success after discharge from [facility]. The following are the strategies pt has identified: 1. Self-care!!! Remind yourself self-care is essential to healthy mind and body. It is a necessity not selfish! 2. Continue to set realistic expectations of self. When have set high expectations in the past it has resulted in increased stress and pressure that is unneeded. Remember to set self up for success versus failure. 3. Continue to have awareness of your distorted thought patterns and reframe. 4. Grateful journal. 5. Open and direct communciation is gusman. No one can read your mind. 6. Continue to let the small things go. 7. Continue use of healthy coping strategies. 8. Review IOP binder for refresher of skills. 9. exterminator helper termite goal of having one day a week that is unscheduled. 10. Continue to set SMART daily goals. Discharge Handout: Complete Discharge Handout with client on aftercare options and continuity of care.
--- NOTE | 2018-07-12 20:27 | BH.DS_ITS ---
Discharge Summary - Demographics Date of Admission:: 05/08/18 Discharge Date: 07/10/18 Presenting Problems at Admission:: Pt self-referred to the behavioral health IOP program due to worsening anxiety, depression, and not feeling like myself . 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 Pt attributed her worsening anxiety and depression to her mom's stroke. Pt reported she started drinking alcohol daily shortly after her mom's stroke. Pt endorsed depressed mood, anhedonia, increased irritablity, and decreased appetite. Pt reported she feels anxious about everything and finds herself not enjoying life anymore. Stated I'm just going through the motions. Pt reported she is able to complete the necessary tasks throughout her day, but when she gets home has the urge to isolate. Pt stated she is seeking help because she doesn't want to decompensate any further. Discharge Diagnoses:: Major depressive disorder recurrent moderate F 33.1. Anxiety unspecified Reason for Discharge:: Pt has made significant progress on treatment goals and no longer meets medical necessity for IOP level of care. - Treatment Progress During Treatment & Response: At intake on the DSM cross cutting measure pt scored a 5 out of 8 on the depression scale. At discharge pt scored a 0 out of 8 on the depression scale which demonstrates signficiant reduction in depressive symptoms. At intake on the DSM cross-cutting measure pt scorted a 8 out of 12 on the anxiety scale. At discharge pt scored a 1 out of 12 on the anxiety scale which demonstrates signficiant reduction in anxious symptoms. Pt has also made progress with improved communication, increased positive thinking , ability to challenge and reframe negative thought patterns, increased self- care, and realistic expectations of self. Pt shared she has also decreased alcohol consumption from 3-4 craft beers daily to 1-2 craft beers daily. Pt reported does not believe she is using alcohol as a form of coping like she was when started IOP. Pt responded well to treatment throughout program as evidenced by pt contributing thoughts and ideas to discussion and participating in activites. Issues Still to be Addressed:: Pt could benefit from continued focus on maintaining self-care plan, coping with being an empty mignon, and continuing to set realistic expectations of self. Pt also could benefit from exploring coping skills help pt relax. Pt tends to use coping skills that are higher intensity (i.e. 17 mile bike ride), which can be cathartic for pt however doesn' t have the calming affect. Pt has identified going on a mindfulness bike ride to be more relaxing and could benefit from increasing her repertoire of calming skills especially with winter approaching. Discharge Recommendations/Instructions:: Pt is recommended to follow through with individual counseling and continue seeing primary care physician for medication management. Pt also encouraged to use the strategies that can help pt maintain success after discharge from [facility]. The following are the strategies pt has identified: 1. Self-care!!! Remind yourself self-care is essential to healthy mind and body. It is a necessity not selfish! 2. Continue to set realistic expectations of self. When have set high expectations in the past it has resulted in increased stress and pressure that is unneeded. Remember to set self up for success versus failure. 3. Continue to have awareness of your distorted thought patterns and reframe. 4. Grateful journal. 5. Open and direct communciation is gusman. No one can read your mind. 6. Continue to let the small things go. 7. Continue use of healthy coping strategies. 8. Review IOP binder for refresher of skills. 9. halfway goal of having one day a week that is unscheduled. 10. Continue to set SMART daily goals. Discharge Handout: Complete Discharge Handout with client on aftercare options and continuity of care.
== END 2018-07-10 15:24 | disposition home health service (06) ==
LOC: BHIOP 09:00
PROVIDERS: Family Provider Family Medicine; PCP Family Medicine; Visit Provider Psychiatry & Neurology Psychiatry
DX: F33.1 Major depressive disorder, recurrent, moderate (principal); F41.9 Anxiety disorder, unspecified
CPT/HCPCS: H0035; 90834; 90853

== ENCOUNTER → 2018-12-21 14:33 | Outpatient (CLI) | payer BC, SELFPAY ==
--- NOTE | 2018-12-21 14:37 | BI_ITS ---
MAMMOGRAPHY - BILATERAL SCREENING REASON FOR EXAM: Female, 53 years old. Routine annual screening examination. PERTINENT HISTORY: Non-contributory. Prior left stereotactic breast biopsies and right excisional breast biopsy. TECHNIQUE: Digital bilateral breast gloria (3D mammographic acquisition) in the CC and MLO projections. 2-D mediolateral oblique (MLO) and craniocaudad (CC) views of both breasts were obtained. CAD: Full Field Digital Mammography with Computer Added Detection was performed. COMPARISON: Comparison is made with prior study dated December 15, 2017 and December 09, 2016. FINDINGS: Breast Composition: The breasts are extremely dense, which lowers the sensitivity of mammography. There are no dominant masses or suspicious calcifications. Once again, a tissue clip marker is seen in the mid lateral portion of the left breast. No other significant abnormalities are identified. There has been no significant change since the prior study. BI/SCREENING MAMM (CAD), BILAT IMPRESSION: Stable bilateral screening mammogram. Yearly follow-up mammogram recommended. (A) ASSESSMENT CATEGORY: BIRADS Category 2: Benign. A letter regarding these results will be sent to the patient by the facility within 30 days. Approximately 10% of breast cancers are not detected by mammography. A normal mammogram should not delay biopsy of a clinically suspicious abnormality. [id number] Electronically Signed: Ricky Mares MD at 16:02 EST , Service support ,
== END ==
PROVIDERS: Family Provider Family Medicine; PCP Family Medicine; Visit Provider Obstetrics & Gynecology
DX: Z12.31 Encounter for screening mammogram for malignant neoplasm of breast (principal)
CPT/HCPCS: 77063; 77067

== ENCOUNTER → 2018-12-28 13:42 | Outpatient (CLI) | payer BC, SELFPAY ==
[2018-12-28 13:38] VITALS: BMI 23.3
--- NOTE | 2018-12-28 13:43 | RAD_ITS ---
STUDY: X-RAY CHEST REASON FOR EXAM: Female, 53 years old. Five-day history of cough. TECHNIQUE: PA and lateral views of the chest. COMPARISON: Comparison is made with prior examination dated May 02, 2015. FINDINGS: Hyperinflation. Scattered calcified granulomas. There is no demonstrated pleural abnormality. Normal size heart. Normal mediastinum and taurus. Normal visualized pulmonary arteries. Normal visualized aortic arch and descending thoracic aorta. Normal visualized thoracic spine. Normal visualized ribs, clavicles, and shoulders. There is no demonstrated abnormality of the visualized soft tissue structures of the upper abdomen. RAD/Chest PA and Lateral IMPRESSION: Hyperinflation. Electronically Signed: Ricky Mares, at 14:00 EST , Service support ,
== END ==
PROVIDERS: Family Provider Family Medicine; PCP Family Medicine; Referring Provider Physician Assistant Surgical; Visit Provider Physician Assistant Surgical
DX: R05 Cough (principal); R50.9 Fever, unspecified
CPT/HCPCS: 71046

== ENCOUNTER → 2020-01-06 13:02 | Outpatient (CLI) | payer BC, SELFPAY ==
[2018-12-28 13:38] VITALS: BMI 23.3
--- NOTE | 2020-01-06 13:06 | BI_ITS ---
MAMMOGRAPHY - BILATERAL SCREENING REASON FOR EXAM: Female, 54 years old. Routine annual screening examination. PERTINENT HISTORY: Non-contributory. Remote left stereotactic breast biopsy and excisional breast biopsy. TECHNIQUE: Digital bilateral breast agnes (3D mammographic acquisition) in the CC and MLO projections. 2-D mediolateral oblique (MLO) and craniocaudad (CC) views of both breasts were obtained. CAD: Full Field Digital Mammography with Computer Added Detection was performed. COMPARISON: Comparison is made with prior study dated December 21, 2018 and December 15, 2007. FINDINGS: Breast Composition: The breasts are extremely dense, which lowers the sensitivity of mammography. There are no dominant masses or suspicious calcifications. Once again, a tissue clip marker is seen in the mid lateral portion of the left breast. No other significant abnormalities are identified. There has been no significant change since the prior study. BI/SCREEN MAMM (CAD) W/AGNES BILAT IMPRESSION: Stable bilateral screening mammogram. Yearly follow-up mammogram recommended. (A) ASSESSMENT CATEGORY: BIRADS Category 2: Benign. A letter regarding these results will be sent to the patient by the facility within 30 days. Approximately 10% of breast cancers are not detected by mammography. A normal mammogram should not delay biopsy of a clinically suspicious abnormality. [id number] Electronically Signed: Ricky Mares, at 14:09 EDT , Service support ,
== END ==
PROVIDERS: Family Provider Family Medicine; PCP Family Medicine; Referring Provider Family Medicine; Visit Provider Family Medicine
DX: Z12.31 Encounter for screening mammogram for malignant neoplasm of breast (principal)
CPT/HCPCS: 77063; 77067

== ENCOUNTER → 2020-08-14 15:30 | Outpatient (CLI) | payer BC, SELFPAY ==
[2018-12-28 13:38] VITALS: BMI 23.3
[2020-08-14 17:44] LABS: Vitamin D,25 Hydroxy 38.1 ng/mL
[2020-08-14 17:46] LABS: Thyroid Stim Hormone (TSH) 2.08 uIU/mL (0.358-3.74)
== END ==
PROVIDERS: PCP Family Medicine; Referring Provider Obstetrics & Gynecology; Visit Provider Obstetrics & Gynecology
DX: E55.9 Vitamin D deficiency, unspecified (principal); Z84.89 Family history of other specified conditions
CPT/HCPCS: 36415; 82306; 84443

== ENCOUNTER → 2021-03-06 15:26 | Outpatient (CLI) | payer BC, SELFPAY ==
[2018-12-28 13:38] VITALS: BMI 23.3
[2021-02-18 11:14] VITALS: BMI 23.3
--- NOTE | 2021-03-06 15:29 | BI_ITS ---
MAMMOGRAPHY - BILATERAL SCREENING REASON FOR EXAM: Female, 55 years old. Routine annual screening examination. PERTINENT HISTORY: Non-contributory. Remote left stereotactic breast biopsies and right excisional breast biopsy. TECHNIQUE: Digital bilateral breast agnes (3D mammographic acquisition) in the CC and MLO projections. 2-D mediolateral oblique (MLO) and craniocaudad (CC) views of both breasts were obtained. CAD: Full Field Digital Mammography with Computer Added Detection was performed. COMPARISON: Comparison is made with prior study 01/06/2020 and 12/21/2018. FINDINGS: Breast Composition: The breasts are extremely dense, which lowers the sensitivity of mammography. There are no dominant masses or suspicious calcifications. Once again, a tissue clip marker is seen in the mid lateral portion of the left No other significant abnormalities are identified. There has been no significant change since the prior study. BI/SCRN MAMM (CAD)W/AGNES BILAT IMPRESSION: Stable bilateral screening mammogram. Yearly follow-up mammogram recommended. (A) ASSESSMENT CATEGORY: BIRADS Category 2: Benign. A letter regarding these results will be sent to the patient by the facility within 30 days. Approximately 10% of breast cancers are not detected by mammography. A normal mammogram should not delay biopsy of a clinically suspicious abnormality. [id number] Electronically Signed: Ricky Mares MD at 8:36 EDT , Service support ,
--- NOTE | 2021-03-06 15:31 | BD_ITS ---
STUDY: DUAL ENERGY X-RAY ABSORPTIOMETRY / DXA REASON FOR EXAM: Female, 55 years old. V76.12ScreeningBONE DENSITY REASON FOR EXAM TECHNIQUE: Bone Mineral Density (BMD) measurements of lumbar spine and bilateral hips were obtained. COMPARISON: None. FINDINGS: Lumbar Spine (L1-L4): g/cm2 (0.987) / T-score (-1.6) / Z-score (-0.5) Findings are suggestive of osteopenia with a moderate fracture risk. Left Femur Total: g/cm2 (0.856) / T-score (-1.2) / Z-score (-0.4) Left Femoral Neck: g/cm2 (0.788) / T-score (-1.8) / Z-score (-0.7) Right Femur Total: g/cm2 (0.833) / T-score (-1.4) / Z-score (-0.6) Right Femoral Neck: g/cm2 (0.800) / T-score (-1.7) / Z-score (-0.6) BD/Dexa Bone Density Study IMPRESSION: The patient is considered osteopenic as outlined below according to World Steve Organization (WHO) criteria with a moderate fracture risk. Reference Information: The T-score is the number of standard deviations above or below the standard which is normal for young adults at their peak bone mineral density. The World Health Organization (WHO) interprets the T-scores as follows: Above -1 Normal bone density Between -1 and -2.5 Osteopenia Equal to / or below -2.5 Osteoporosis As a practical clinical guideline, osteopenia may be graded as follows: Mild -1 through -1.5 Moderate -1.6 through -2.0 Severe -2.1 through -2.4 The Z-score is the number of standard deviations above or below age-matched controls. A Z-score of less than -1.5 would be considered abnormal. References: 1. NIH Osteoporosis and Related Bone Diseases www osteo.org 2. International Society for Clinical Densitometry www iscd.org 3. National Osteoporosis Foundation www nof.org Electronically Signed: Ricky Mares MD at 14:49 EDT , Service support ,
== END ==
PROVIDERS: PCP Family Medicine; Referring Provider Family Medicine; Visit Provider Family Medicine
DX: Z13.820 Encounter for screening for osteoporosis (principal); Z12.31 Encounter for screening mammogram for malignant neoplasm of breast
CPT/HCPCS: 77063; 77067; 77080

== ENCOUNTER 2021-12-03 13:05 | Outpatient (CLI) | payer BC, SELFPAY ==
[2021-12-03 13:43] LABS: Erythrocyte Sedimentation Rate 23 mm/hr (0-30)
[2021-12-03 14:08] LABS: Rheumatoid Factor < 10.0 IU/mL (<15)
[2021-12-06 11:00] LABS: CCP IgG Antibodies 55 units (0-19)
== END 2021-12-03 23:59 | disposition home or self-care (01) ==
PROVIDERS: PCP Family Medicine; Visit Provider Family Medicine
DX: M06.4 Inflammatory polyarthropathy (principal)
CPT/HCPCS: 36415; 85652; 86038; 86140; 86200; 86431

== ENCOUNTER → 2022-03-14 | Outpatient (CLI) | payer BC, SELFPAY ==
--- NOTE | 2022-03-14 13:27 | BI_ITS ---
MAMMOGRAPHY - BILATERAL SCREENING REASON FOR EXAM: Female, 56 years old. Routine annual screening examination. PERTINENT HISTORY: Non-contributory. Remote left stereotactic biopsy and right excisional breast biopsy. TECHNIQUE: Digital bilateral breast agnes (3D mammographic acquisition) in the CC and MLO projections. 2-D mediolateral oblique (MLO) and craniocaudad (CC) views of both breasts were obtained. CAD: Full Field Digital Mammography with Computer Added Detection was performed. COMPARISON: Comparison is made with prior examination dated 03/06/2021 and 01/06/2020. FINDINGS: Breast Composition: The breasts are extremely dense, which lowers the sensitivity of mammography. There are no dominant masses or suspicious calcifications. A tissue clip marker is once again seen in the mid lateral aspect of the left breast. Stable benign appearing bilateral axillary lymph nodes. No other significant abnormalities are identified. There has been no significant change since the prior study. BI/SCRN MAMM (CAD)W/AGNES BILAT IMPRESSION: Stable bilateral screening mammogram. Yearly follow-up mammogram recommended. (A) ASSESSMENT CATEGORY: BIRADS Category 2: Benign. A letter regarding these results will be sent to the patient by the facility within 30 days. Approximately 10% of breast cancers are not detected by mammography. A normal mammogram should not delay biopsy of a clinically suspicious abnormality. [id number] Electronically Signed: Ricky Mares MD at 13:59 EDT ,
== END | disposition home or self-care (01) ==
LOC: OPBI 13:20
PROVIDERS: PCP Family Medicine; Referring Provider Obstetrics & Gynecology; Visit Provider Obstetrics & Gynecology
DX: Z12.31 Encounter for screening mammogram for malignant neoplasm of breast (principal)
CPT/HCPCS: 77063; 77067

== ENCOUNTER → 2022-04-17 | Outpatient (CLI) | payer BC, SELFPAY ==
--- NOTE | 2022-04-17 14:10 | RAD_ITS ---
EXAM: XR LEFT SHOULDER COMPLETE, 2 OR MORE VIEWS CLINICAL INDICATION: PAIN TECHNIQUE: Two or more views of the left shoulder. This report was created using [employer] mobile report generation technology. COMPARISON: None. FINDINGS: BONES/JOINTS: Unremarkable. No acute fracture. No subluxation. Normal alignment. Preservation of the joint space. No sclerotic or destructive changes observed. SOFT TISSUES: Unremarkable. No soft tissue swelling or gas. No radiopaque foreign body. RAD/Shoulder min 2 Views IMPRESSION: Negative left shoulder x-rays. Electronically Signed: Eleazar Elam MD at 2:32 EDT ,
--- NOTE | 2022-04-17 14:10 | RAD_ITS ---
EXAM: XR RIGHT SHOULDER COMPLETE, 2 OR MORE VIEWS CLINICAL INDICATION: PAIN TECHNIQUE: Two or more views of the right shoulder. This report was created using [employer] report generation technology. COMPARISON: None. FINDINGS: BONES/JOINTS: Unremarkable. No acute fracture. No subluxation. Normal alignment. Preservation of the joint space. No sclerotic or destructive changes observed. SOFT TISSUES: Unremarkable. No soft tissue swelling or gas. No radiopaque foreign body. RAD/Shoulder min 2 Views IMPRESSION: Negative right shoulder x-rays. Electronically Signed: Eleazar Elam MD at 2:30 EDT ,
--- NOTE | 2022-04-17 14:10 | RAD_ITS ---
EXAM: XR PELVIS COMPLETE, 3 OR MORE VIEWS CLINICAL INDICATION: PAIN TECHNIQUE: Frontal and lateral or oblique views of the pelvis. This report was created using [employer] report generation technology. COMPARISON: None. FINDINGS: BONES/JOINTS: Unremarkable. No displaced fracture. No destructive or sclerotic lesions. Note that overlapping bowel shadows may however obscure fine detail. Sacroiliac joints are unremarkable. No widening of the pubic symphysis. The articular structures are unremarkable. SOFT TISSUES: Unremarkable. No soft tissue swelling or gas. RAD/S-I Jts 3 or More Views IMPRESSION: No evidence of displaced pelvic fracture. Electronically Signed: Eleazar Elam MD at 2:32 EDT ,
--- NOTE | 2022-04-17 14:10 | RAD_ITS ---
STUDY: X-RAY - CERVICAL SPINE REASON FOR EXAM: Female, 56 years old. PAIN TECHNIQUE: 3 view(s) of the cervical spine were obtained. COMPARISON: None FINDINGS: Normal anterior atlantoaxial articulation. Normal odontoid process. Normal cervical lordosis. 2 mm retrolisthesis of C5 on C6. There is multi-level endplate spondylosis. There is multi-level degenerative disc disease with multilevel disc space narrowing. Normal visualized intervertebral neuroforamina. The soft tissue structures are unremarkable. RAD/Cerv Spine 2 or 3 Views IMPRESSION: Moderate diffuse degenerative disc disease with 2 mm retrolisthesis of C5 on C6. MRI would be useful. Electronically Signed: Mikel Jerez MD at 14:42 EDT ,
--- NOTE | 2022-04-17 14:10 | RAD_ITS ---
STUDY: X-RAY - LUMBAR SPINE REASON FOR EXAM: Female, 56 years old. PAIN TECHNIQUE: 2 view(s) of the lumbar spine were obtained. COMPARISON: None FINDINGS: Normal lumbar lordosis. Mild dextroscoliosis centered at L2. There is a normal alignment of the vertebrae. There is multilevel endplate spondylosis of the lumbar vertebrae. There is multi-level degenerative disc disease with multi-level disc space narrowing. Facet hypertrophy in the lower lumbar spine. The soft tissue structures are unremarkable. RAD/Lumbar Spine 2 or 3 Views IMPRESSION: Mild dextroscoliosis with degenerative disc disease. MRI would be useful. Electronically Signed: Mikel Jerez MD at 14:46 EDT ,
== END | disposition home or self-care (01) ==
LOC: RAD 14:06
PROVIDERS: PCP Family Medicine
DX: M25.50 Pain in unspecified joint (principal); R79.82 Elevated C-reactive protein (CRP); M54.50 Low back pain, unspecified; M89.59 Osteolysis, multiple sites
CPT/HCPCS: 72040; 72100; 72202; 73030

== ENCOUNTER → 2022-04-18 | Outpatient (CLI) | payer BC, SELFPAY ==
[2022-04-18 09:49] LABS: Bacteria 0 SEEN /hpf (None Seen); Mucous, Urine 0 SEEN /hpf (<or=2+); Red Blood Cells-Urine 0 SEEN /hpf (0-5); Squamous Epithelial Cells - UA 0 SEEN /hpf (5-10); White Blood Cells 0 SEEN /hpf (0-5)
[2022-04-18 10:49] LABS: Absolute Neutrophil Count 3.1 X10^3/uL (2.0-7.7); Basophil# 0.04 X10^3/uL; Basophil% 0.8 % (0-1); Eosinophil# 0.17 X10^3/uL; Eosinophils% 3.3 % (0-5); Hematocrit 40.4 % (37-47); Lymphocyte % 25.4 % (19-41); Mean Corp Hgb Conc 32.2 g/dL (32-36); Mean Corpuscular Hgb 29.2 pg (27.0-32.0); Mean Corpuscular Volume 90.8 fL (81-99); Mean Platelet Vol. 9.7 fl (6.2-12.0); Monocyte# 0.49 X10^3/uL; Monocyte% 9.6 % (0-10); NRBC Flagged by Analyzer 0 % (0-5); Neutrophil # 3.11 X10^3/uL (2.7-7.7); Neutrophil % 60.7 % (47-70); Platelet Count 315 K/mm3 (150-450); RBC Distribution Width CV 14.3 % (11.6-14.6); RBC Distribution Width SD 47.5 fl (35.1-43.9); Red Blood Count 4.45 M/mm3 (4.2-5.4); White Blood Count 5.1 K/mm3 (4.4-11.0)
[2022-04-18 10:52] LABS: Erythrocyte Sedimentation Rate 10 mm/hr (0-30)
[2022-04-18 10:53] LABS: Color, Urine Yellow (Yellow); Glucose, Dipstick Normal (Normal); Ketone-Dipstick Negative (Negative); Leukocyte Esterase-Dipstick Negative /ul (Negative); Nitrite-Dipstick Negative (Negative); Occult Blood-Urine Negative /ul (Negative); Protein-Dipstick Negative (Negative); Urine Bilirubin Dipstick Negative (Negative); Urine Clarity Clear (Clear); Urine Urobilinogen Normal (Normal)
[2022-04-18 11:31] LABS: AST(SGOT) 23 U/L (15-37); Alanine Aminotransfer ALT/SGPT 25 U/L (13-56); Albumin, Serum 3.6 g/dL (3.2-5.0); Alkaline Phosphatase 63 U/L (45-117); Anion Gap 6 (5-15); BUN 15 mg/dL (7-18); BUN/Creat Ratio 21.3 RATIO (10-20); CPK Total, Creatine Kinase 67 U/L (26-192); Chloride 101 mmol/L (98-107); EST Glomerular Filtration Rate 90 mL/min (>60); Est Glom Filt Rate - Afr Amer 109 mL/min (>60); Globulin 3.7 g/dL (2.2-4.2); Glucose 85 mg/dL (74-106); Protein, Total 7.3 g/dL (6.4-8.2); Rheumatoid Factor < 10.0 IU/mL (<15); Sodium Level 136 mmol/L (136-145); Thyroid Stim Hormone (TSH) 2.57 uIU/mL (0.358-3.74); Uric Acid 5.2 mg/dL (2.6-6.0)
[2022-04-18 12:04] LABS: Hepatitis B Surface Antibody Reactive; Hepatitis B Surface Antigen Non-Reactive (Nonreactive)
[2022-04-19 13:03] LABS: ANTINUCLEAR ANTIBODIES DIRECT Negative (Negative)
== END | disposition home or self-care (01) ==
LOC: LAB 09:42
PROVIDERS: PCP Family Medicine; Referring Provider Internal Medicine Rheumatology; Visit Provider Internal Medicine Rheumatology
DX: R76.8 Other specified abnormal immunological findings in serum (principal); M25.50 Pain in unspecified joint; R79.82 Elevated C-reactive protein (CRP); M54.50 Low back pain, unspecified
CPT/HCPCS: 36415; 80053; 81001; 82550; 84443; 84550; 85025; 85652; 86038; 86060; 86140; 86200; 86225; 86235; 86431; 86704; 86706; 86803; 86804; 87340

== ENCOUNTER → 2022-11-04 | Outpatient (CLI) | payer BC, SELFPAY ==
--- NOTE | 2022-11-04 13:32 | BI_ITS ---
MAMMOGRAPHY - BILATERAL DIAGNOSTIC REASON FOR EXAM: Female, 57 years old. Focal dimpling of the left breast. PERTINENT HISTORY: Non-contributory. Prior left stereotactic breast biopsy and right excisional breast biopsy. TECHNIQUE: Digital bilateral breast gloria (3D mammographic acquisition) in the CC and MLO projections. 2-D mediolateral oblique (MLO) and craniocaudad (CC) views of both breasts were obtained. CAD: Full Field Digital Mammography with Computer Added Detection was performed. COMPARISON: Comparison is made with prior study dated 03/14/2022 and 03/06/2021 FINDINGS: Breast Composition: The breasts are extremely dense, which lowers the sensitivity of mammography. There are no dominant masses or suspicious calcifications. A tissue clip marker is once again seen in the mid lateral aspect of the left breast. Stable fat-containing bilateral axillary lymph nodes. No other significant abnormalities are identified. There has been no significant change since the prior study. BI/DIAG MAMM W/CAD, BILAT IMPRESSION: Stable bilateral diagnostic mammogram. Targeted ultrasound of the skin dimple is recommended for further evaluation. ASSESSMENT CATEGORY: BIRADS Category 0: Incomplete. Need additional imaging evaluation. A letter regarding these results will be sent to the patient by the facility within 30 days. Approximately 10% of breast cancers are not detected by mammography. A normal mammogram should not delay biopsy of a clinically suspicious abnormality. Electronically Signed: Ricky Mares MD at 14:55 EST ,
== END | disposition home or self-care (01) ==
PROVIDERS: PCP Family Medicine; Visit Provider Advanced Practice Midwife
DX: N63.23 Unspecified lump in the left breast, lower outer quadrant (principal)
CPT/HCPCS: 77062; 77066; G0279

== ENCOUNTER → 2022-11-05 | Outpatient (CLI) | payer BC, SELFPAY ==
--- NOTE | 2022-11-05 09:09 | US_ITS ---
STUDY: ULTRASOUND BREAST - LEFT REASON FOR EXAM: Female, 57 years old. Skin dimpling. TECHNIQUE: Axial and longitudinal images of the LEFT breast were performed with a high resolution ultrasound transducer. # OF IMAGES: 28 COMPARISON: Comparison is made with prior mammogram dated 11/04/2022. FINDINGS: LEFT Breast: The area of concern in the outer lower quadrant of the left breast was examined with ultrasound. No sonographic abnormality is seen. US/Breast Limited Unilateral IMPRESSION: No sonographic abnormality is seen. ASSESSMENT CATEGORY: BIRADS Category 1: Negative. A letter regarding these results will be sent to the patient by the facility within 30 days. Electronically Signed: Ricky Mares MD at 15:56 EST ,
== END | disposition home or self-care (01) ==
LOC: OPUS 09:06
PROVIDERS: PCP Family Medicine; Visit Provider Advanced Practice Midwife
DX: N63.23 Unspecified lump in the left breast, lower outer quadrant (principal)
CPT/HCPCS: 76642

== ENCOUNTER → 2024-01-08 | Outpatient (CLI) | payer BC, SELFPAY ==
--- NOTE | 2024-01-08 15:35 | BD_ITS ---
STUDY: DUAL ENERGY X-RAY ABSORPTIOMETRY / DXA REASON FOR EXAM: Female, 58 years old. M85.89 TECHNIQUE: Bone Mineral Density (BMD) measurements of lumbar spine and bilateral hips were obtained. COMPARISON: Comparison is made with prior study dated March 06, 2021. FINDINGS: Lumbar Spine (L1-L4): g/cm2 (0.864) / T-score (-1.7) / Z-score (-0.2) Findings are suggestive of osteopenia with a moderate fracture risk. Left Femur Total: g/cm2 (0.839) / T-score (-0.8) / Z-score (0.1) Left Femoral Neck: g/cm2 (0.592) / T-score (-2.3) / Z-score (-1.0) Right Femur Total: g/cm2 (0.814) / T-score (-1.1) / Z-score (-0.1) Right Femoral Neck: g/cm2 (0.596) / T-score (-2.3) / Z-score (-0.1) The T-Scores on the most recent prior examination were: Lumbar Spine (L1-L4): There has been worsening of bone density since the previous examination. Left Femur Total: which represents an improvement of 5.7%. Right Femur Total: which represents an improvement of 5.4%. BD/Dexa Bone Density Study IMPRESSION: The patient is considered osteopenic as outlined below according to World Steve Organization (WHO) criteria with a high fracture risk. There has been improvement of bone density since the previous examination. Reference Information: The T-score is the number of standard deviations above or below the standard which is normal for young adults at their peak bone mineral density. The World Health Organization (WHO) interprets the T-scores as follows: Above -1 Normal bone density Between -1 and -2.5 Osteopenia Equal to / or below -2.5 Osteoporosis As a practical clinical guideline, osteopenia may be graded as follows: Mild -1 through -1.5 Moderate -1.6 through -2.0 Severe -2.1 through -2.4 The Z-score is the number of standard deviations above or below age-matched controls. A Z-score of less than -1.5 would be considered abnormal. References: 1. NIH Osteoporosis and Related Bone Diseases www osteo.org 2. International Society for Clinical Densitometry www iscd.org 3. National Osteoporosis Foundation www nof.org Electronically Signed: Ricky Mares MD at 12:23 EDT ,
--- OUTSIDE RECORDS SUMMARY | 2024-01-08 22:02 | XMS RPT_ITS | CCD ---
Author Name Unknown Address [address] [place] [address] Organization [facility] Care Team Providers Care Waste Management Specialist Name Role Phone Carline Chung LPN Unavailable [phone] Niki Mai LPN Unavailable Unavailab viraj Sloan MD, Nadya Pablo Primary Care Provider Nadya Sloan MD Primary Care Provider [phone] RICARDO JC Attending Unavailable RICARDO JC Referring [...] sources) erythromycin drug allergy 6 GI Upset [facility] Work Phone: (2 sources) penicillin v drug allergy 7 unknown reaction [facility] Work Phone: (12 sources) Formaldehyde; Translations: [FORMALDEHYDE] Drug Allergy 6 Itching [facility] Work Phone: (12 sources) Latex; Translations: [LATEX] Propensity to adverse reactions 7 Itching [facility] Work Phone: (4 sources) Penicillins; Translations: [PENICILLINS] Propensity to adverse reactions 6 [facility] Work Phone: (12 sources) Alcohols, C12-15, Ethoxylated; Translations: [ALCOHOLS, C12-15, ETHOXYLATED] Propensity to adverse reactions 6 Itching [facility] Work Phone: (12 sources) Fragrances; Translations: [FRAGRANCES] Propensity to adverse reactions 6 Itching [facility] Work Phone: (10 sources) other chemical in hair care products [Other] Propensity to adverse reactions 6 [facility] Work Phone: (8 sources) Penicillins Propensity to adverse reactions 6 [facility] Work Phone: (2 sources) Erythromycin; Translations: [ERYTHROMYCIN] Drug Allergy 6 [facility] Repository (2 sources) OTHER; Translations: [OTHER] Propensity to adverse reactions (disorder) 6 [facility] Repository Medications Completed/Discontinued Medications Medication Drug Class(es) [...] 162.6 cm Philip Crockett MD Work Phone: [facility] 12-30-2022 15:48-0500 Body temperature 97.59 [degF] Philip Crockett MD Work Phone: [facility] 12-30-2022 15:48-0500 Body weight 66.41 kg Philip Crockett MD Work Phone: [facility] 12-30-2022 15:48-0500 Diastolic blood pressure 86 mm[Hg] Philip Crockett MD Work Phone: [facility] 12-30-2022 15:48-0500 Heart rate 86 /min Philip Crockett MD Work Phone: [facility] 12-30-2022 15:48-0500 SaO2% (BldA) [Mass fraction] 96 % Philip Crockett MD Work Phone: [facility] 12-30-2022 15:48-0500 Systolic blood pressure 112 mm[Hg] Philip Crockett MD Work Phone: [facility] 11-27-2022 14:03-0500 Body height 163 cm Ricardo Jc MD Work Phone: [facility] 11-27-2022 14:03-0500 Body temperature 97.59 [degF] Ricardo Jc MD Work Phone: [facility] 11-27-2022 14:03-0500 Body weight 66.91 kg Ricardo Jc MD Work Phone: [facility] 11-27-2022 14:03-0500 Diastolic blood pressure 60 mm[Hg] Ricardo Jc MD Work Phone: [facility] 11-27-2022 14:03-0500 Heart rate 62 /min Ricardo Jc MD Work Phone: [facility] 11-27-2022 14:03-0500 SaO2% (BldA) [Mass fraction] 98 % Ricardo Jc MD Work Phone: [facility] 11-27-2022 14:03-0500 Systolic blood pressure 135 mm[Hg] Ricardo Jc MD Work Phone: [facility] 04-09-2022 09:16-0400 Body height 165.1 cm Ricardo Jc MD Work Phone: [facility] 04-09-2022 09:16-0400 Body temperature 98.2 [degF] Ricardo Jc MD Work Phone: [facility] 04-09-2022 09:16-0400 Body weight 63.78 kg Ricardo Jc MD Work Phone: [facility] 04-09-2022 09:16-0400 Diastolic blood pressure 57 mm[Hg] Ricardo Jc MD Work Phone: [facility] 04-09-2022 09:16-0400 Heart rate 61 /min Ricardo Jc MD Work Phone: [facility] 04-09-2022 09:16-0400 Systolic blood pressure 131 mm[Hg] Ricardo Jc MD Work Phone: [facility] 07-07-2017 15:06-0400 BMI (Body Mass Index) 23.48 kg/m2 Niki Mai LPN [facility] Work Phone: 07-07-2017 15:06-0400 Body Temperature 97.3 [degF] Niki Mai LPN [facility] Work Phone: 07-07-2017 15:06-0400 BP Diastolic 60 mm[Hg] Niki Mai LPN [facility] Work Phone: 07-07-2017 15:06-0400 BP Systolic 102 mm[Hg] Niki Mai LPN [facility] Work Phone: 07-07-2017 15:06-0400 Height 162.56 cm Niki Mai LPN [facility] Work Phone: 07-07-2017 15:06-0400 Pulse (Heart Rate) 72 /min Niki Mai [employer] [facility] Work Phone: 07-07-2017 15:06-0400 Respiratory Rate 13 /min Niki Mai [facility] Work Phone: 07-07-2017 15:06-0400 Weight 62.05 kg Niki Mai [employer] [facility] Work Phone: Encounters [...] Detail Author Start: 02-03-2029 Urine microalbumin profile [facility] Start: 07-11-2025 HPV TESTING HPV TESTING [facility] Start: 07-11-2025 PAP TESTING PAP TESTING [facility] Start: 07-11-2025 Screening for malignant neoplasm of cervix [facility] Start: 01-18-2024 Colonoscopy COLONOSCOPY [facility] Start: 01-18-2024 COLORECTAL CANCER SCREENING COLORECTAL CANCER SCREENING [facility] Start: 01-18-2024 Screening for malignant neoplasm of colon [facility] Start: 10-27-2023 Depression Assessment Depression Assessment [facility] Start: 2023 RSV Vaccine (1 - 1-dose 60+ series) RSV Vaccine (1 - 1-dose 60+ series) [facility] Start: 06-27-2023 Covid-19 Vaccine ( season) Covid-19 Vaccine () [facility] Start: 06-27-2023 Influenza vaccination Influenza Vaccine (#1) [facility] Start: 03-14-2023 Mammography [facility] Start: 03-14-2023 Screening for malignant neoplasm of breast Mammogram Screening [facility] Start: 11-27-2022 End: 01-27-2023 25-hydroxyvitamin D3 [Mass/volume] in Serum or Plasma VITAMIN D 25 HYDROXY Lab Routine Cyclic citrullinated peptide (CCP) antibody positive Pain in joint, multiple sites Low back pain, unspecified back pain laterality, unspecified chronicity, unspecified whether sciatica present Psoriasis Osteopenia of multiple sites Psoriatic arthropathy (HCC) Antinuclear antibody (YOLI) titer greater than 1:80 Expected: 11/27/2022, Expires: 01/27/2023 [facility] Work Phone: Immunizations Immunization Date Immunization Notes Care Provider [place] [facility] 08-08-2022 influenza virus vaccine, unspecified formulation Philip Crockett MD Work Phone: [facility] 12-16-2020 COVID-19 vaccine, fu ll dose (MODERNA) Ricardo Jc MD Work Phone: [facility] Work Phone: 11-15-2020 COVID-19 vaccine, fu ll dose (MODERNA) Ricardo Jc MD Work Phone: [facility] Work Phone: 02-21-2020 zoster vaccine recombinant Ricardo Jc MD Work Phone: [facility] 10-05-2019 zoster vaccine recombinant Ricardo Jc MD Work Phone: [facility] 09-16-2019 influenza, injectabl e, quadrivalent, contains preservative Ricardo Jc MD Work Phone: [facility] 02-03-2019 tetanus toxoid, redu joe diphtheria toxoid, and acellular pertussis vaccine, adsorbed Ricardo Jc MD Work Phone: [facility] 07-09-2016 influenza, seasonal, injectable Ricardo Jc MD Work Phone: [facility] Work Phone: 02-27-2009 tetanus toxoid, redu joe diphtheria toxoid, and acellular pertussis vaccine, adsorbed Ricardo Jc MD Work Phone: [facility] Work Phone: Payers Date Payer Category Payer Unknown [employer] PPO OOS [id number] 2021-Present [phone] [address] [place] [address] PPO [id number] 2021 Unknown [employer] PPO OOS [id number] 2021-Present [phone] [address] [place] [address] PPO [id number] 2021 Unknown [id number] Social History Date Type Detail Facility Start: 11-04-2022 Tobacco smoking stat [facility] Never smoked tobacco [facility] Work Phone: Start: 04-09-2022 End: 12-30-2022 Alcohol intake Current drinker of alcohol (finding) [facility] Start: 10-01-2020 End: 04-09-2022 Alcohol intake [facility] Start: 1965 Sex Assigned At Female C [facility] Start: 03-30-2022 End: 05-27-2022 Exposure to SARS-CoV-2 (event) Not sure [facility] Start: 11-04-2022 Tobacco use and exposure Smokeless tobacco non-user [facility] Start: 10-01-2020 End: 12-30-2022 Tobacco use panel [facility] National Score (1-100), lower number is lower risk Not on file [facility] Start: 03-24-2022 Gender identity Identifies as female gender (finding) [facility] Clinical Notes 08-13-2011 to 12-02-2023 Telephone Encounter - Elissa Nicole LPN - 12/02/2023 2:38 PM Moris Crockett MD - 12/30/2022 4:04 PM Jh Villatoro LPN - 12/30/2022 3:53 PM Ronnell Jc MD - 11/27/2022 2:09 PM EST Note Date & Type Note Facility 12-02-2023 Miscellaneous Notes Order for mammogram faxed to [facility]. Elissa Nicole LPN documented in this encounter [facility] 12-30-2022 Note HNO ID: [id number] Author: Philip Crockett MD Service: ? Author Type: Physician Type: Progress Notes Filed: 12/30/2022 4:26 PM Note Text: HISTORY AND PHYSICAL Suni Wilson 1965 REFERRING PHYSICIAN: Amrit Diaz APRN.CNM CHIEF COMPLAINT: Consult (breast) HPI: The patient is a 57 year old female with a complaint of dimpling of the skin on her left breast. She has had a mammogram and ultrasound completed at [facility] these were read as negative showing no [...] hypo Cataract Mother Heart Mother mitral valve prolapse/NV Hypertension Mother Stroke Mother february 2018 other (osteopenia) Mother Hypertension Father Heart Father Endarterectomy 2011 Hyperlipidemia Father other (colon polyps) Brother Heart Paternal Grandfather Diabetes Paternal Aunt Thyroid Sister hypo REVIEW OF SYMPTOMS: The review of systems data was entered by the nurse and reviewed by ne Nursing Notes: Lisa Villatoro LPN 12/30/2022 3:57 [...] denies stroke/TIA. P (more content not included)... [facility] 12-30-2022 History of Present illness Narrative HISTORY AND PHYSICAL Suni Wilson 1965 REFERRING PHYSICIAN: Amrit Diaz APRN.CNM CHIEF COMPLAINT: Consult (breast) HPI: The patient is a 57 year old female with a complaint of dimpling of the skin on her left breast. She has had a mammogram and ultrasound completed at [facility] these were read as negative showing no [...] hypo Cataract Mother Heart Mother mitral valve prolapse/NV Hypertension Mother Stroke Mother february 2018 other (osteopenia) Mother Hypertension Father Heart Father Endarterectomy 2011 Hyperlipidemia Father other (colon polyps) Brother Heart Paternal Grandfather Diabetes Paternal Aunt Thyroid Sister hypo REVIEW OF SYMPTOMS: The review of systems data was entered by the nurse and reviewed by ne Nursing Notes: Lisa Villatoro LPN 12/30/2022 3:57 [...] Crockett III, MD documented in this encounter [facility] 12-30-2022 Nurse Note REVIEW OF SYSTEMS: General: [...] Lisa Villatoro LPN documented in this encounter [facility] 12-11-2022 Miscellaneous Notes Patient called in requesting information regarding paperwork that was sent over from amrit diaz office for referral to [facility]. Transferred patient to retail department reset to schedule appointment. Carolyn Berger LPN documented in this encounter [facility] 12-09-2022 Miscellaneous Notes Please let patient know [...] to do so documented in this encounter [facility] 11-27-2022 Note HNO ID: [id number] Author: Ricardo Jc MD Service: ? Author [...] hypo Cataract Mother Heart Mother mitral valve prolapse/NV Hypertension Mother Stroke Mother february 2018 other [...] needed, the fo (more content not included)... [facility] 11-27-2022 History of Present [...] hypo Cataract Mother Heart Mother mitral valve prolapse/NV Hypertension Mother Stroke Mother february 2018 other [...] something in eye: No Itching eyes: No [id number]-THROAT: Ringing in ears: No Loss of hearing: [...] Ricardo Jc MD documented in this encounter [facility] 11-04-2022 Note HNO ID: [id number] Author: Amrit Diaz APRN.CNM Service: ? Author Type: Sales Assistant Displays Type: Progress Notes Filed: 11/07/2022 12:14 PM [...] L2 SAB1 IAB0 Ectopic0 Multiple0 Live Births0 Soup Person History LMP: 05/31/2012, Postmenopausal Age at Menarche: Age at First : Age at Menopause: Soup Person History Comments: Sexual Activity: Yes; Male Contraception: [...] hypo Cataract Mother Heart Mother mitral valve prolapse/NV Hypertension Mother Stroke Mother february 2018 other [...] - US BR (more content not included)... [facility] 05-27-2022 Note HNO ID: [id number] Author: Ricardo Jc MD Service: ? Author [...] Cataract Mother - Heart Mother mitral valve prolapse/NV - Hypertension Mother - Stroke Mother february 2018 - other (osteopenia) Mother - Hypertension Father - Heart Father Endarterectomy 2011 - Hyperlipidemia F (more content not included)... [facility] 05-27-2022 History of Present [...] hypo Cataract Mother Heart Mother mitral valve prolapse/NV Hypertension Mother Stroke Mother february 2018 other [...] something in eye: No Itching eyes: No [id number]-THROAT: Ringing in ears: No Loss of hearing: [...] Ricardo Jc MD documented in this encounter [facility] 04-09-2022 Note HNO ID: [id number] Author: Ricardo Jc MD Service: ? Author [...] Cataract Mother - Heart Mother mitral valve prolapse/NV - Hypertension Mother - Stroke Mother february [...] something in eye: No Itching eyes: No [id number]-THROAT: Ringing in ears: No Loss of hearing: No Nosebleeds: No Loss of smell: No Dryness in nose: No Runny Nose: No Sore tongue: No Bleeding gums: No Sores in mouth: No Loss of taste: No Dryness of mouth: No Frequent sore (more content not included)... [facility] 04-09-2022 History of Present [...] hypo Cataract Mother Heart Mother mitral valve prolapse/NV Hypertension Mother Stroke Mother february 2018 other [...] something in eye: No Itching eyes: No [id number]-THROAT: Ringing in ears: No Loss of hearing: [...] Ricardo Jc MD documented in this encounter [facility] documented as of this encounter (statuses as of 04/09/2022) [facility] History of Past illness Narrative* Problem Noted Date Resolved Date Complex endometrial hyperplasia 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 1 07/09/2016 Other specified noninflammatory disorder of cerv ix 04/23/2010 07/09/2016 Hypertrophy of uterus 04/23/2010 07/09/2016 Irregular menstrual cycle 11/15/20082011 Metrorrhagia 11/15/2008 07/09/2016 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 documented as of this encounter (statuses as of 04/10/2022) [facility] History of Past illness Narrative* Problem Noted Date Resolved Date Complex endometrial hyperplasia 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 1 07/09/2016 Other specified noninflammatory disorder of cerv ix 04/23/2010 07/09/2016 Hypertrophy of uterus 04/23/2010 07/09/2016 Irregular menstrual cycle 11/15/20082011 Metrorrhagia 11/15/2008 07/09/2016 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 documented as of this encounter (statuses as of 05/27/2022) [facility] History of Past illness Narrative* Problem Noted Date Resolved Date Complex endometrial hyperplasia 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 1 07/09/2016 Other specified noninflammatory disorder of cerv ix 04/23/2010 07/09/2016 Hypertrophy of uterus 04/23/2010 07/09/2016 Irregular menstrual cycle 11/15/20082011 Metrorrhagia 11/15/2008 07/09/2016 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 documented as of this encounter (statuses as of 05/28/2022) [facility] History of Past illness Narrative* Problem Noted Date Resolved Date Complex endometrial hyperplasia 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 1 07/09/2016 Other specified noninflammatory disorder of cerv ix 04/23/2010 07/09/2016 Hypertrophy of uterus 04/23/2010 07/09/2016 Irregular menstrual cycle 11/15/20082011 Metrorrhagia 11/15/2008 07/09/2016 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 documented as of this encounter (statuses as of 11/06/2022) [facility] History of Past illness Narrative* Problem Noted Date Resolved Date Complex endometrial hyperplasia 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 1 07/09/2016 Other specified noninflammatory disorder of cerv ix 04/23/2010 07/09/2016 Hypertrophy of uterus 04/23/2010 07/09/2016 Irregular menstrual cycle 11/15/20082011 Metrorrhagia 11/15/2008 07/09/2016 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 documented as of this encounter (statuses as of 11/27/2022) [facility] History of Past illness Narrative* Problem Noted Date Resolved Date Complex endometrial hyperplasia 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 1 07/09/2016 Other specified noninflammatory disorder of cerv ix 04/23/2010 07/09/2016 Hypertrophy of uterus 04/23/2010 07/09/2016 Irregular menstrual cycle 11/15/20082011 Metrorrhagia 11/15/2008 07/09/2016 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 documented as of this encounter (statuses as of 12/09/2022) [facility] History of Past illness Narrative* Problem Noted Date Resolved Date Complex endometrial hyperplasia 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 1 07/09/2016 Other specified noninflammatory disorder of cerv ix 04/23/2010 07/09/2016 Hypertrophy of uterus 04/23/2010 07/09/2016 Irregular menstrual cycle 11/15/20082011 Metrorrhagia 11/15/2008 07/09/2016 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 documented as of this encounter (statuses as of 12/31/2022) [facility] History of Past illness Narrative* Problem Noted Date Diagnosed Date Resolved Date Complex endometrial hyperpla edgar 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 08/13/2011 07/09/2016 Other specified noninflammat ory disorder of cervix 04/23/2010 07/09/2016 Hypertrophy of uterus 04/23/20102015 Irregular menstrual cycle 11/15/2008 Metrorrhagia 11/15/2008 07/09/2016 Other specified congenital anomaly of skin 01/07/2006 07/19/2014 documented as of this encounter (statuses as of 07/14/2023) [facility] History of Past illness Narrative* Problem Noted Date Diagnosed Date Resolved Date Complex endometrial hyperpla edgar 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 08/13/2011 07/09/2016 Other specified noninflammat ory disorder of cervix 04/23/2010 07/09/2016 Hypertrophy of uterus 04/23/20102015 Irregular menstrual cycle 11/15/2008 Metrorrhagia 11/15/2008 07/09/2016 Other specified congenital anomaly of skin 01/07/2006 07/19/2014 documented as of this encounter (statuses as of 12/03/2023) [facility] note* Diagnosis Cyclic citrullinated peptide (CCP) antibody positive- Primary Pain in joint, multiple sites CRP elevated Elevated C-reactive protein (CRP) Low back pain, unspecified back pain laterality, unspecified chronicity, unspecified whether sciatica present Osteopenia of multiple sites Psoriasis Other psoriasis Antinuclear antibody (YOLI) titer greater than 1:80 documented in this encounter [facility] note* Diagnosis Cyclic citrullinated peptide (CCP) antibody positive- Primary Pain in joint, multiple sites Low back pain, unspecified back pain laterality, unspecified chronicity, unspecified whether sciatica present Psoriasis Other psoriasis Osteopenia of multiple sites Psoriatic arthropathy (HCC) Psoriatic arthropathy documented in this encounter [facility] note* Diagnosis Psoriatic arthropathy (HCC)- Primary Psoriatic arthropathy Cyclic citrullinated peptide (CCP) antibody positive Pain in joint, multiple sites Low back pain, unspecified back pain laterality, unspecified chronicity, unspecified whether sciatica present Psoriasis Other psoriasis Osteopenia of multiple sites Antinuclear antibody (YOLI) titer greater than 1:80 documented in this encounter [facility] note* Diagnosis History of dimpling of breast skin documented in this encounter [facility] for referral (narrative)* Diagnostic Procedure Only (Routine) [...] 2 VIEWS Ricardo Jc MD [address] [facility] [address] [place] [address] Xr Imaging Referral ID Status Reason Start Date Expiration Date Visits Requested Visits Authorized [id number] Pending Review Auto-Generat ed Referral 04/09/2022 05/09/2023 [...] VIEWS Ricardo Jc MD [address] [address] Xr Imaging Referral ID Status Reason Start Date Expiration Date Visits Requested Visits Authorized [id number] Pending Review Auto-Generat ed Referral 04/09/2022 05/09/2023 [...] VIEWS Ricardo Jc MD [address] [address] Xr Imaging Referral ID Status Reason Start Date Expiration Date Visits Requested Visits Authorized [id number] Pending Review Auto-Generat ed Referral 04/09/2022 05/09/2023 [...] Jc MD [address] [place] [address] Xr Imaging Referral ID Status Reason Start Date Expiration Date Visits Requested Visits Authorized [id number] Pending Review Auto-Generat ed Referral 04/09/2022 05/09/2023 1 1 [facility] Summary Purpose Family History No Family History [...] or prosecute any alcohol or drug abuse patient.[facility] the event this information is protected by the Federal Confidentiality of Alcohol and Drug Abuse Patient Records regulations: The Federal rules restrict any use of the information to criminally investigate or prosecute any alcohol or drug abuse patient.[facility] the event this information is protected by the Federal Confidentiality of Alcohol and Drug Abuse Patient Records regulations: The Federal rules restrict any use of the information to criminally investigate or prosecute any alcohol or drug abuse patient.[facility] the event this information is protected by the Federal Confidentiality of Alcohol and Drug Abuse Patient Records regulations: The Federal rules restrict any use of the information to criminally investigate or prosecute any alcohol or drug abuse patient.[facility] the event this information is protected by the Federal Confidentiality of Alcohol and Drug Abuse Patient Records regulations: The Federal rules restrict any use of the information to criminally investigate or prosecute any alcohol or drug abuse patient.[facility] the event this information is protected by the Federal Confidentiality of Alcohol and Drug Abuse Patient Records regulations: The Federal rules restrict any use of the information to criminally investigate or prosecute any alcohol or drug abuse patient.[facility] the event this information is protected by the Federal Confidentiality of Alcohol and Drug Abuse Patient Records regulations: The Federal rules restrict any use of the information to criminally investigate or prosecute any alcohol or drug abuse patient.[facility] the event this information is protected by the Federal Confidentiality of Alcohol and Drug Abuse Patient Records regulations: The Federal rules restrict any use of the information to criminally investigate or prosecute any alcohol or drug abuse patient.[facility] the event this information is protected by the Federal Confidentiality of Alcohol and Drug Abuse Patient Records regulations: The Federal rules restrict any use of the information to criminally investigate or prosecute any alcohol or drug abuse patient.[facility] the event this information is protected by the Federal Confidentiality of Alcohol and Drug Abuse Patient Records regulations: The Federal rules restrict any use of the information to criminally investigate or prosecute any alcohol or drug abuse patient.[facility] Reason for Visit (unrecogniz ed section and content) Reason Comments Joint Pain Reason Comments cyclic citrullinated peptide antibody po sitive Reason Comments Consult breast Specialty Diagnoses / Procedures Referred By Ariela t Referred To Contact General Surgery Diagnoses History of dimpling of breast skin Procedures CONSULT TO GENERAL SURGERY OFFICE/OUTPATIENT [facility] MDM 60-74 MINUTES Amrit Diaz APRN.CNM [address] [address] Referral ID Status Reason Start Date Expiration Date V isits Requested Visits Authorized [id number] Closed PCP Requested Referral 11/20/2022 11/20/2023 1 1 Care Teams (unrecognized sec tion and content) Waste Management Specialist Relationship Specialty Start Date End Date Nadya Sloan MD [address] [place] [address] PCP - General Family Practice 08/21/18 Waste Management Specialist Relationship Specialty Start Date End Date Nadya Sloan MD [address] [place] [address] PCP - General Family Practice 08/21/18 Waste Management Specialist Relationship Specialty Start Date End Date Nadya Sloan MD [address] [place] [address] PCP - General Family Medicine 08/21/18 Waste Management Specialist Relationship Specialty Start Date End Date Nadya Sloan MD [address] [place] [address] PCP - General Family Medicine 08/21/18 Waste Management Specialist Relationship Specialty Start Date End Date Nadya Sloan MD [address] [place] [address] PCP - General Family Medicine 08/21/18 Waste Management Specialist Relationship Specialty Start Date End Date Nadya Sloan MD [address] [place] [address] PCP - General Family Medicine 08/21/18 Waste Management Specialist Relationship Specialty Start Date End Date Nadya Sloan MD [address] [place] [address] PCP - General Family Medicine 08/21/18 INFORMATION SOURCE (unrecogn ized section and content) DATE CREATED AUTHOR AUTHOR'S ORGANIZ ATION 07/15/2023 [facility] FOR RECORDS PERTAINING TO PATIENTS WHO ARE [...] BE BASED ON THE PRIMARY CLINICAL RECORDS. [employer] [facility]. provides no warranty or guarantee of the accuracy or completeness of information in this document.
== END | disposition home or self-care (01) ==
LOC: OPBD 15:30
PROVIDERS: PCP Nurse Practitioner Family; Referring Provider Nurse Practitioner Family; Visit Provider Nurse Practitioner Family
DX: M85.89 Other specified disorders of bone density and structure, multiple sites (principal)
CPT/HCPCS: 77080

== ENCOUNTER → 2024-01-08 | Outpatient (CLI) | payer BC, SELFPAY ==
--- NOTE | 2024-01-08 15:23 | BI_ITS ---
MAMMOGRAPHY - BILATERAL SCREENING REASON FOR EXAM: Female, 58 years old. Routine annual screening examination. PERTINENT HISTORY: Non-contributory. Remote right excisional breast biopsy and left stereotactic breast biopsies. TECHNIQUE: Digital bilateral breast agnes (3D mammographic acquisition) in the CC and MLO projections. 2-D mediolateral oblique (MLO) and craniocaudad (CC) views of both breasts were obtained. CAD: Full Field Digital Mammography with Computer Added Detection was performed. COMPARISON: Comparison is made with prior study dated November 04, 2022 and March 14, 2022. FINDINGS: Breast Composition: The breasts are extremely dense, which lowers the sensitivity of mammography. There are no dominant masses or suspicious calcifications. A tissue clip marker is once again seen in the mid lateral aspect of the left breast. Stable benign-appearing bilateral axillary lymph nodes. Stable asymmetry of breast tissue were more breast tissue is seen in the upper-outer quadrant of the right breast as compared to the left side. Correlation with ultrasound is recommended for further evaluation. No other significant abnormalities are identified. BI/SCRN MAMM (CAD)W/AGNES BILAT IMPRESSION: Stable bilateral screening mammogram. Correlation with ultrasound of the upper-outer quadrant of the right breast is recommended. ASSESSMENT CATEGORY: BIRADS Category 0: Incomplete. Need additional imaging evaluation. A letter regarding these results will be sent to the patient by the facility within 30 days. Approximately 10% of breast cancers are not detected by mammography. A normal mammogram should not delay biopsy of a clinically suspicious abnormality. [id number] Electronically Signed: Ricky Mares MD at 8:37 EDT ,
--- OUTSIDE RECORDS SUMMARY | 2024-01-08 21:52 | XMS RPT_ITS | CCD ---
Author Name Unknown Address [address] [place] [address] Organization [facility] Care Team Providers [facility] Membership Advisors Name Role Phone Carline Chung LPN Unavailable [phone] Niki Mai LPN Unavailable Unavailab viraj Sloan MD, Nadya Pablo Primary Care Provider Nadya Sloan MD Primary Care Provider RICARDO JC Attending Unavailable RICARDO JC Referring Unavailable NADYA SLOAN Primary Care Unavailable RICARDO JC Attending Unavailable RICARDO JC Referring Unavailable NADYA SLOAN Primary Care Unavailable RICARDO JC Attending Unavailable NADYA SLOAN Referring Unavailable NADYA SLOAN Primary Care Unavailable AMRIT DIAZ Attending Unavailable NADYA SLOAN Primary Care Unavailable PHILIP CROCKETT Attending Unavailable AMRIT DIAZ Referring Unavailable NADYA SLOAN Primary Care Unavailable Allergies Allergy Classification Reported Allergen(s) Allergy Type Date of Onset Reaction(s) Facility (12 sources) erythromycin drug allergy 6 GI Upset [facility] Work Phone: (2 sources) penicillin v drug allergy 7 unknown reaction [facility] Work Phone: (12 sources) Formaldehyde; Translations: [FORMALDEHYDE] Drug Allergy 6 Itching [facility] Work Phone: (12 sources) Latex; Translations: [LATEX] Propensity to adverse reactions 7 Itching [facility] Work Phone: (4 sources) Penicillins; Translations: [PENICILLINS] Propensity to adverse reactions 6 [facility] Work Phone: (12 sources) Alcohols, C12-15, Ethoxylated; Translations: [ALCOHOLS, C12-15, ETHOXYLATED] Propensity to adverse reactions 6 Itching [facility] Work Phone: (12 sources) Fragrances; Translations: [FRAGRANCES] Propensity to adverse reactions 6 Itching [facility] Work Phone: (10 sources) other chemical in hair care products [Other] Propensity to adverse reactions 6 [facility] Work Phone: (8 sources) Penicillins Propensity to adverse reactions 6 [facility] Work Phone: (2 sources) Erythromycin; Translations: [ERYTHROMYCIN] Drug Allergy [address] [facility] Repository (2 sources) OTHER; Translations: [OTHER] Propensity to adverse reactions (disorder) [address] [facility] Repository Medications Completed/Discontinued Medications Medication Drug Class(es) Dates Sig (Normalized) Sig (Original) azelaic acid-niacinamide 15-4 % crea (10 sources) azelaic acid-niacinamide 15-4 % crea Apply to affected area. 0 Active Problems Active Problems Problem Classification Problem Date Documented Da te Episodic/Chronic Anxiety disorders (10 sources) Anxiety neurosis ; Translations: [Generalized anxiety disorder] Onset: 06-13-2015 06-13-2015 Chronic Immunizations and screening for infectious disease (7 sources) Anti-cyclic citrullinated peptide antibody positive; Translations: [Other specified abnormal immunological findings in serum] Onset: 11-27-2022 Episodic Nonmalignant breast conditions (10 sources) Fibrocystic disease of breast; Translations: [Diffuse cystic mastopathy of unspecified breast] Onset: 11-15-2008 11-15-2008 Chronic Other bone disease and musculoskeletal deformities (3 sources) Osteopenia; Translations: [Other specified disorders of bone density and structure, multiple sites] Episodic Other bone disease and musculoskeletal deformities (1 source) Other specified disorders of bone density and structure, multiple sites; Translations: [Osteopenia of multiple sites] Onset: 11-27-2022 Episodic Other inflammatory condition of skin (3 sources) Psoriasis; Translations: [Psoriasis, unspecified] Chronic Other inflammatory condition of skin (10 sources) Rosacea; Translations: [Rosacea, unspecified] Onset: 06-13-2015 06-13-2015 Chronic Other inflammatory condition of skin (2 sources) Psoriatic arthritis; Translations: [Arthropathic psoriasis, unspecified] Chronic Other inflammatory condition of skin (1 source) Arthropathic psoriasis, unspecified; Translations: [Psoriatic arthropathy (HCC)] Onset: 11-27-2022 Chronic Other inflammatory condition of skin (1 source) Psoriasis, unspecified; Translations: [Psoriasis] Onset: 11-27-2022 Chronic Other non-traumatic joint disorders (3 sources) Multiple joint pain; Translations: [Pain in unspecified joint] Episodic Other non-traumatic joint disorders (1 source) Pain in unspecified joint; Translations: [Pain in joint, multiple sites] Onset: 11-27-2022 Episodic Other skin disorders (1 source) H/O: breast problem; Translations: [Personal history of diseases of the skin and subcutaneous tissue] Episodic Spondylosis; intervertebral disc disorders; other back problems (3 sources) Low back pain; Translations: [Low back pain, unspecified back pain laterality, unspecified chronicity, unspecified whether sciatica present] Episodic Unclassified (1 source) Low back pain, unspecified back pain laterality, unspecified chronicity, unspecified whether sciatica present; Translations: [Low back pain, unspecified back pain laterality, unspecified chronicity, unspecified whether sciatica present] Onset: 11-27-2022 Past or Other Problems Problem Classification Problem Date Documented Da te Episodic/Chronic Other screening for suspected conditions (not mental disorders or infectious disease) (2 sources) Elevated C-reactive protein; Translations: [Elevated C-reactive protein (CRP)] Onset: 04-09-2022 Episodic Other skin disorders (1 source) Personal history of diseases of the skin and subcutaneous tissue; Translations: [History of dimpling of breast skin] Onset: 12-30-2022 Episodic Skin and subcutaneous tissue infections (2 sources) Cellulitis; Translations: [Cellulitis, unspecified] Onset: 07-07-2017 07-07-2017 Episodic Results Test Name Value Interpretation Reference Range Facil ity Vital Signs Date Time Vital Sign Value Performing Clinician Facility 12-30-2022 15:48-0500 Body height 162.6 cm Philip Crockett MD Work Phone: [facility] 12-30-2022 15:48-0500 Body temperature 97.59 [degF] Philip Crockett MD Work Phone: [facility] 12-30-2022 15:48-0500 Body weight 66.41 kg Philip Crockett MD Work Phone: [facility] 12-30-2022 15:48-0500 Diastolic blood pressure 86 mm[Hg] Philip Crockett MD Work Phone: [facility] 12-30-2022 15:48-0500 Heart rate 86 /min Philip Crockett MD Work Phone: [facility] 12-30-2022 15:48-0500 SaO2% (BldA) [Mass fraction] 96 % Philip Crockett MD Work Phone: [facility] 12-30-2022 15:48-0500 Systolic blood pressure 112 mm[Hg] Philip Crockett MD Work Phone: [facility] 11-27-2022 14:03-0500 Body height 163 cm Ricardo Jc MD Work Phone: [facility] 11-27-2022 14:03-0500 Body temperature 97.59 [degF] Ricardo Jc MD Work Phone: [facility] 11-27-2022 14:03-0500 Body weight 66.91 kg Ricardo Jc MD Work Phone: [facility] 11-27-2022 14:03-0500 Diastolic blood pressure 60 mm[Hg] Ricardo Jc MD Work Phone: [facility] 11-27-2022 14:03-0500 Heart rate 62 /min Ricardo Jc MD Work Phone: [facility] 11-27-2022 14:03-0500 SaO2% (BldA) [Mass fraction] 98 % Ricardo Jc MD Work Phone: [facility] 11-27-2022 14:03-0500 Systolic blood pressure 135 mm[Hg] Ricardo Jc MD Work Phone: [facility] 04-09-2022 09:16-0400 Body height 165.1 cm Ricardo Jc MD Work Phone: [facility] 04-09-2022 09:16-0400 Body temperature 98.2 [degF] Ricardo Jc MD Work Phone: [facility] 04-09-2022 09:16-0400 Body weight 63.78 kg Ricardo Jc MD Work Phone: [facility] 04-09-2022 09:16-0400 Diastolic blood pressure 57 mm[Hg] Ricardo Jc MD Work Phone: [facility] 04-09-2022 09:16-0400 Heart rate 61 /min Ricardo Jc MD Work Phone: [facility] 04-09-2022 09:16-0400 Systolic blood pressure 131 mm[Hg] Ricardo Jc MD Work Phone: [facility] 07-07-2017 15:06-0400 BMI (Body Mass Index) 23.48 kg/m2 Niki Mai LPN [facility] Work Phone: 07-07-2017 15:06-0400 Body Temperature 97.3 [degF] Niki Mai LPN [facility] Work Phone: 07-07-2017 15:06-0400 BP Diastolic 60 mm[Hg] Niki Mai LPN [facility] Work Phone: 07-07-2017 15:06-0400 BP Systolic 102 mm[Hg] Niki Mai LPN [facility] Work Phone: 07-07-2017 15:06-0400 Height 162.56 cm Niki Mai LPN [facility] Work Phone: 07-07-2017 15:06-0400 Pulse (Heart Rate) 72 /min Niki Mai COLLISION REPAIR TECHNICIAN [facility] Work Phone: 07-07-2017 15:06-0400 Respiratory Rate 13 /min Niki Mai [facility] Work Phone: 07-07-2017 15:06-0400 Weight 62.05 kg Niki Mai COLLISION REPAIR TECHNICIAN [facility] Work Phone: Encounters Encounter Date Encounter Type Care Provider Facility Start: 12-02-2023 ambulatory Marilee Montes MD Work Phone: OB/Gynecology Procedures Date Procedure Procedure Detail Performing Clinician Start: 03-14-2022 Mammography Ricardo vera MD Work Phone: Start: 02-24-2021 Dxa bone density kiki dy 1/> sites axial skel [facility] Provider Start: 08-04-2017 Lipid 1996 panel - S ruth or Plasma Philip Crockett MD Work Phone: Start: 07-09-2016 Adult depression scr eening assessment Ricardo Jc MD Work Phone: Start: 01-17-2014 Colonoscopy Ricardo vera MD Work Phone: Plan of Treatment Date Care Activity Detail Author Start: 02-03-2029 Urine microalbumin profile [facility] Start: 07-11-2025 HPV TESTING HPV TESTING [facility] Start: 07-11-2025 PAP TESTING PAP TESTING [facility] Start: 07-11-2025 Screening for malignant neoplasm of cervix [facility] Start: 01-18-2024 Colonoscopy COLONOSCOPY [facility] Start: 01-18-2024 COLORECTAL CANCER SCREENING COLORECTAL CANCER SCREENING [facility] Start: 01-18-2024 Screening for malignant neoplasm of colon [facility] Start: 10-27-2023 Depression Assessment Depression Assessment [facility] Start: 2023 RSV Vaccine (1 - 1-dose 60+ series) RSV Vaccine (1 - 1-dose 60+ series) [facility] Start: 06-27-2023 Covid-19 Vaccine ( season) Covid-19 Vaccine () [facility] Start: 06-27-2023 Influenza vaccination Influ[facility] (#1) [facility] Start: 03-14-2023 Mammography [facility] Start: 03-14-2023 Screening for malignant neoplasm of breast Mammogram Screening [facility] Start: 11-27-2022 End: 01-27-2023 25-hydroxyvitamin D3 [Mass/volume] in Serum or Plasma VITAMIN D 25 HYDROXY Lab Routine Cyclic citrullinated peptide (CCP) antibody positive Pain in joint, multiple sites Low back pain, unspecified back pain laterality, unspecified chronicity, unspecified whether sciatica present Psoriasis Osteopenia of multiple sites Psoriatic arthropathy (HCC) Antinuclear antibody (YOLI) titer greater than 1:80 Expected: 11/27/2022, Expires: 01/27/2023 [facility] Work Phone: Immunizations Immunization Date Immunization Notes Care Provider [place] [facility] 08-08-2022 influenza virus vaccine, unspecified formulation Philip Crockett MD Work Phone: [facility] 12-16-2020 COVID-19 vaccine, fu ll dose (MODERNA) Ricardo Jc MD Work Phone: [facility] Work Phone: 11-15-2020 COVID-19 vaccine, fu ll dose (MODERNA) Ricardo Jc MD Work Phone: [facility] Work Phone: 02-21-2020 zoster vaccine recombinant Ricardo Jc MD Work Phone: [facility] 10-05-2019 zoster vaccine recombinant Ricardo Jc MD Work Phone: [facility] 09-16-2019 influenza, injectabl e, quadrivalent, contains preservative Ricardo Jc MD Work Phone: [facility] 02-03-2019 tetanus toxoid, redu joe diphtheria toxoid, and acellular pertussis vaccine, adsorbed Ricardo Jc MD Work Phone: [facility] 07-09-2016 influenza, seasonal, injectable Ricardo Jc MD Work Phone: [facility] Work Phone: 02-27-2009 tetanus toxoid, redu joe diphtheria toxoid, and acellular pertussis vaccine, adsorbed Ricardo Jc MD Work Phone: [facility] Work Phone: Payers Date Payer Category Payer Unknown [employer] PPO OOS [id number] 2021-Present [phone] [address] [place] [address] PPO [id number] 2021 Unknown [employer] PPO OOS [id number] 2021-Present [phone] [address] [place] [address] PPO [id number] 2021 Unknown [id number] Social History Date Type Detail Facility Start: 11-04-2022 Tobacco smoking stat [facility] Never smoked tobacco [facility] Work Phone: Start: 04-09-2022 End: 12-30-2022 Alcohol intake Current drinker of alcohol (finding) [facility] Start: 10-01-2020 End: 04-09-2022 Alcohol intake [facility] Start: 1965 Sex Assigned At Female C [facility] Start: 03-30-2022 End: 05-27-2022 Exposure to SARS-CoV-2 (event) Not sure [facility] Start: 11-04-2022 Tobacco use and exposure Smokeless tobacco non-user [facility] Start: 10-01-2020 End: 12-30-2022 Tobacco use panel [facility] National Score (1-100), lower number is lower risk Not on file [facility] Start: 03-24-2022 Gender identity Identifies as female gender (finding) [facility] Clinical Notes 08-13-2011 to 12-02-2023 Telephone Encounter - Elissa Nicole LPN - 12/02/2023 2:38 PM Moris Crockett MD - 12/30/2022 4:04 PM Jh Villatoro LPN - 12/30/2022 3:53 PM Ronnell Jc MD - 11/27/2022 2:09 PM EST Note Date & Type Note Facility 12-02-2023 Miscellaneous Notes Order for mammogram faxed to [facility]. Elissa Nicole LPN documented in this encounter [facility] 12-30-2022 Note HNO ID: [id number] Author: Philip Crockett MD Service: ? Author Type: Physician Type: Progress Notes Filed: 12/30/2022 4:26 PM Note Text: HISTORY AND PHYSICAL Suni Wilson 1965 REFERRING PHYSICIAN: Amrit Diaz APRN.CNM CHIEF COMPLAINT: Consult (breast) HPI: The patient is a 57 year old female with a complaint of dimpling of the skin on her left breast. She has had a mammogram and ultrasound completed at [facility] these were read as negative showing no masses and no abnormalities within the skin nor the breast itself.. The patient is being seen by me today at the request of Dr. Diaz for my opinion and advice regarding History of dimpling of breast skin . 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 Fracture 2007 fracture of left wrist Irregular menstrual cycle Irregular periods Multilevel degenerative disc disease 05/28/2022 neck and back Other psoriasis and similar disorders Psoriasis of hands PMH - PAST MEDICAL HISTORY OF rosacea Psoriatic arthritis (HCC) 05/28/2022 PAST SURGICAL HISTORY Procedure Laterality Date BIOPSY BREAST OPEN INCISIONAL 1995 Bx of breast, incisional DELIVERY ONLY , low cervical COLONOSCOPY 01/18/14 CORRECT BUNION,SIMPLE Bunion DILATION AND CURETTAGE DXAND/THER NONOBSTETRIC Dilation AND curettage PAST SURGICAL HISTORY OF 1994 sphincterotomy for anal fissure RHINP PRIM LATANDALAR CRTLGSAND/ELVTN NASAL TI Rhinoplasty STEREOTACTIC CORE BIOPSY 03/2006 Left breast STEREOTACTIC CORE BIOPSY 2006 left breast Current Outpatient Medications Medication Sig clobetasol (TEMOVATE) 0.05 % ointment Apply 1 application to affected area twice daily. Apply thin coat to affected tissue BID x 6 weeks then use 1 x weekly for maintenance escitalopram oxalate (LEXAPRO) 10 mg tablet nystatin (MYCOSTATIN) powder apply topically 4 times daily as needed (Patient not taking: Reported on 11/27/2022) azelaic acid-niacinamide 15-4 % crea Apply to affected area. clobetasol (TEMOVATE) 0.05 % ointment Apply to affected area nightly x 4 weeks then PRN at least 1 x week for maintenance No current facility-administered medications for this visit. ALLERGIES: Alcohols, C12-15, Ethoxylated; Eryc [Erythromycin]; Formaldehyde; Fragrances; Latex; Other Chemical In Hair Care Products [Other]; and Penicillins PERSONAL HISTORY: Social History Tobacco Use Smoking status: Never Smokeless tobacco: Never Vaping Use Vaping Use: Never used Substance Use Topics Alcohol use: Yes Alcohol/week: 14.0 standard drinks Types: 14 Cans of Beer (12oz) per week Drug use: No FAMILY HISTORY: FAMILY HISTORY Problem Relation Age of Onset Thyroid Mother hypo Cataract Mother Heart Mother mitral valve prolapse/VA Hypertension Mother Stroke Mother february 2018 other (osteopenia) Mother Hypertension Father Heart Father Endarterectomy 2011 Hyperlipidemia Father other (colon polyps) Brother Heart Paternal Grandfather Diabetes Paternal Aunt Thyroid Sister hypo REVIEW OF SYMPTOMS: The review of systems data was entered by the nurse and reviewed by il Nursing Notes: Lisa Villatoro LPN 12/30/2022 3:57 PM Signed REVIEW OF SYSTEMS: General: The patient denies fatigue, denies weight loss, denies weight gain, denies feeling hot, and denies feelings of cold. Eyes: The patient denies glaucoma, denies eye injury/surgery, does not wear glasses or contacts. Ear/Nose/Throat: The patient NOTES allergies, NOTES hayfever, denies ear infections, and denies bloody noses. Cardiovascular: The patient denies chest pain, denies heart disease, denies high blood pressure,denies cardiac stent, denies prior heart attack, denies irregular heart beat, denies high cholesterol, denies poor circulation, denies heart failure, other cardiac issues, denies claudication, denies cold feet, denies peripheral arterial stent. Respiratory: The patient denies tuberculosis, denies pneumonia, denies frequent cough, denies pulmonary embolism, denies shortness of breath, and denies coughing up blood. Gastrointestinal: The patient denies difficulty swallowing, denies acid reflux, denies ulcers, denies vomiting, denies jaundice/hepatitis, denies gallbladder problems, denies black or tarry stools, NOTES hemorrhoids, denies bleeding from rectum, denies diverticulitis, denies constipation, denies diarrhea, denies loss of stool control, and denies hernias. Kidney/Bladder: The patient denies kidney stones, denies urine infections, and denies bloody urine. Skin: The patient NOTES a history of skin cancer, denies bleeding/changing moles, and denies a history of skin rash. Neurologic: The patient denies a history of epilepsy/convulsions, denies headaches, denies head/spinal injuries, and denies stroke/TIA. P (more content not included)... [facility] 12-30-2022 History of Present illness Narrative HISTORY AND PHYSICAL Suni Wilson 1965 REFERRING PHYSICIAN: Amrit Diaz APRN.CNM CHIEF COMPLAINT: Consult (breast) HPI: The patient is a 57 year old female with a complaint of dimpling of the skin on her left breast. She has had a mammogram and ultrasound completed at [facility] these were read as negative showing no masses and no abnormalities within the skin nor the breast itself.. The patient is being seen by me today at the request of Dr. Diaz for my opinion and advice regarding History of dimpling of breast skin . 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 Fracture 2007 fracture of left wrist Irregular menstrual cycle Irregular periods Multilevel degenerative disc disease 05/28/2022 neck and back Other psoriasis and similar disorders Psoriasis of hands PMH - PAST MEDICAL HISTORY OF rosacea Psoriatic arthritis (HCC) 05/28/2022 PAST SURGICAL HISTORY Procedure Laterality Date BIOPSY BREAST OPEN INCISIONAL 1995 Bx of breast, incisional DELIVERY ONLY , low cervical COLONOSCOPY 01/18/14 CORRECT BUNION,SIMPLE Bunion DILATION & CURETTAGE DX&/THER NONOBSTETRIC Dilation & curettage PAST SURGICAL HISTORY OF 1994 sphincterotomy for anal fissure RHINP PRIM LAT&ALAR CRTLGS&/ELVTN NASAL TI Rhinoplasty STEREOTACTIC CORE BIOPSY 03/2006 Left breast STEREOTACTIC CORE BIOPSY 2006 left breast Current Outpatient Medications Medication Sig clobetasol (TEMOVATE) 0.05 % ointment Apply 1 application to affected area twice daily. Apply thin coat to affected tissue BID x 6 weeks then use 1 x weekly for maintenance escitalopram oxalate (LEXAPRO) 10 mg tablet nystatin (MYCOSTATIN) powder apply topically 4 times daily as needed (Patient not taking: Reported on 11/27/2022) azelaic acid-niacinamide 15-4 % crea Apply to affected area. clobetasol (TEMOVATE) 0.05 % ointment Apply to affected area nightly x 4 weeks then PRN at least 1 x week for maintenance No current facility-administered medications for this visit. ALLERGIES: Alcohols, C12-15, Ethoxylated; Eryc [Erythromycin]; Formaldehyde; Fragrances; Latex; Other Chemical In Hair Care Products [Other]; and Penicillins PERSONAL HISTORY: Social History Tobacco Use Smoking status: Never Smokeless tobacco: Never Vaping Use Vaping Use: Never used Substance Use Topics Alcohol use: Yes Alcohol/week: 14.0 standard drinks Types: 14 Cans of Beer (12oz) per week Drug use: No FAMILY HISTORY: FAMILY HISTORY Problem Relation Age of Onset Thyroid Mother hypo Cataract Mother Heart Mother mitral valve prolapse/VA Hypertension Mother Stroke Mother february 2018 other (osteopenia) Mother Hypertension Father Heart Father Endarterectomy 2011 Hyperlipidemia Father other (colon polyps) Brother Heart Paternal Grandfather Diabetes Paternal Aunt Thyroid Sister hypo REVIEW OF SYMPTOMS: The review of systems data was entered by the nurse and reviewed by il Nursing Notes: Lsia Villatoro LPN 12/30/2022 3:57 PM Signed REVIEW OF SYSTEMS: General: The patient denies fatigue, denies weight loss, denies weight gain, denies feeling hot, and denies feelings of cold. Eyes: The patient denies glaucoma, denies eye injury/surgery, does not wear glasses or contacts. Ear/Nose/Throat: The patient NOTES allergies, NOTES hayfever, denies ear infections, and denies bloody noses. Cardiovascular: The patient denies chest pain, denies heart disease, denies high blood pressure,denies cardiac stent, denies prior heart attack, denies irregular heart beat, denies high cholesterol, denies poor circulation, denies heart failure, other cardiac issues, denies claudication, denies cold feet, denies peripheral arterial stent. Respiratory: The patient denies tuberculosis, denies pneumonia, denies frequent cough, denies pulmonary embolism, denies shortness of breath, and denies coughing up blood. Gastrointestinal: The patient denies difficulty swallowing, denies acid reflux, denies ulcers, denies vomiting, denies jaundice/hepatitis, denies gallbladder problems, denies black or tarry stools, NOTES hemorrhoids, denies bleeding from rectum, denies diverticulitis, denies constipation, denies diarrhea, denies loss of stool control, and denies hernias. Kidney/Bladder: The patient denies kidney stones, denies urine infections, and denies bloody urine. Skin: The patient NOTES a history of skin cancer, denies bleeding/changing moles, and denies a history of skin rash. Neurologic: The patient denies a history of epilepsy/convulsions, denies headaches, denies head/spinal injuries, and denies stroke/TIA. Psychiatric: The patient denies psychiatric medications, denies depression, and denies voices, denies substance abuse. Endocrine: The patient denies thyroid disorders, denies diabetes, and denies hormonal problems. Hematologic: The patient denies a history of bruising, denies bleeding, and denies anemia, denies blood clots. Infections: The patient denies a history of measles and mumps, denies rheumatic fever, and denies sexually transmitted diseases. Musculoskeletal: The patient denies back pain/injury, denies back problems, NOTES sciatica, denies knee/foot trouble, denies arthritis, or denies gout. When was patient's last Mammogram screening? 10/2022 Last Colonoscopy: n/a Lisa Villatoro LPN PHYSICAL EXAMINATION: General: The patient is 57 year old female, well nourished, well hydrated in no acute distress. The patient is oriented to time, place, and person. VITALS: Blood pressure 112/86, pulse 86, temperature 36.4 C (97.6 F), height 162.6 cm (5' 4 ), weight 66.4 kg (146 lb 6.4 oz), last menstrual period 05/31/2012, SpO2 96 %. HEENT: Normal cephalic, ataumatic, pupils are equally round, sclera are anicteric, mucous membranes are moist, oropharynx is clear. Neck has no masses, asymmetry or lymphadenopathy. Thyroid is unremarkable. Respiratory: Clear to auscultation and percussion. Normal respiratory excursion and pattern. Cardiac: Examination is regular rate and rhythm. Abdominal exam: Soft, nontender, with no palpable masses. No hepatosplenomegaly. No palpable hernias. Rectal exam: exam deferred Extremities: no clubbing, cyanosis or edema. No adenopathy. Other: Bilateral breast exam shows normal pendulous breast. There is no dimpling of the skin within the left breast in the lower aspect the tissue is soft there is no redness or abnormalities identified. LABORATORY VALUES: As Noted RADIOLOGIC STUDIES: As Noted Assessment IMPRESSION: History of dimpling of breast skin PLAN: I do not think there is anything to do here I encouraged her to continue to do her self breast exams. There is no biopsy this needed of the skin. And there is nothing to biopsy in the breast. Diagnoses: (Z87.2) History of dimpling of breast skin My findings have been communicated to Dr. Diaz via shared medical record. This note will be forwarded to Dr. Nadya Sloan MD. Return to Clinic: The patient is instructed to follow-up with me as needed. Philip Crockett III, MD documented in this encounter [facility] 12-30-2022 Nurse Note REVIEW OF SYSTEMS: General: The patient denies fatigue, denies weight loss, denies weight gain, denies feeling hot, and denies feelings of cold. Eyes: The patient denies glaucoma, denies eye injury/surgery, does not wear glasses or contacts. Ear/Nose/Throat: The patient NOTES allergies, NOTES hayfever, denies ear infections, and denies bloody noses. Cardiovascular: The patient denies chest pain, denies heart disease, denies high blood pressure,denies cardiac stent, denies prior heart attack, denies irregular heart beat, denies high cholesterol, denies poor circulation, denies heart failure, other cardiac issues, denies claudication, denies cold feet, denies peripheral arterial stent. Respiratory: The patient denies tuberculosis, denies pneumonia, denies frequent cough, denies pulmonary embolism, denies shortness of breath, and denies coughing up blood. Gastrointestinal: The patient denies difficulty swallowing, denies acid reflux, denies ulcers, denies vomiting, denies jaundice/hepatitis, denies gallbladder problems, denies black or tarry stools, NOTES hemorrhoids, denies bleeding from rectum, denies diverticulitis, denies constipation, denies diarrhea, denies loss of stool control, and denies hernias. Kidney/Bladder: The patient denies kidney stones, denies urine infections, and denies bloody urine. Skin: The patient NOTES a history of skin cancer, denies bleeding/changing moles, and denies a history of skin rash. Neurologic: The patient denies a history of epilepsy/convulsions, denies headaches, denies head/spinal injuries, and denies stroke/TIA. Psychiatric: The patient denies psychiatric medications, denies depression, and denies voices, denies substance abuse. Endocrine: The patient denies thyroid disorders, denies diabetes, and denies hormonal problems. Hematologic: The patient denies a history of bruising, denies bleeding, and denies anemia, denies blood clots. Infections: The patient denies a history of measles and mumps, denies rheumatic fever, and denies sexually transmitted diseases. Musculoskeletal: The patient denies back pain/injury, denies back problems, NOTES sciatica, denies knee/foot trouble, denies arthritis, or denies gout. When was patient's last Mammogram screening? 10/2022 Last Colonoscopy: n/a Lisa Villatoro LPN documented in this encounter [facility] 12-11-2022 Miscellaneous Notes Patient called in requesting information regarding paperwork that was sent over from amrit diaz office for referral to [facility]. Transferred patient to receptionist scheduler to schedule appointment. Carolyn Berger LPN documented in this encounter [facility] 12-09-2022 Miscellaneous Notes Please let patient know that we typically do not treat psoriatic arthritis only with ibuprofen. All I said was that since she has been reluctant to go on disease modifying treatments for psoriatic arthritis and she is controlling her symptoms well on ibuprofen she can continue ibuprofen. Long-term NSAIDs is not ideal for anybody typically because of side effects including kidney disease and stomach ulcers but if not doing other treatments for psoriatic arthritis which are typically immunosuppressants then we do not have a choice and we decided that she would continue ibuprofen for now. I also said that if ibuprofen is not controlling her disease well she should definitely consider moving on to disease modifying treatments. If additional questions or concerns and needs to schedule follow-up okay to do so documented in this encounter [facility] 11-27-2022 Note HNO ID: [id number] Author: Ricardo Jc MD Service: ? Author Type: Physician Type: Progress Notes Filed: 11/27/2022 3:02 PM Note Text: Subjective HPI: 57-year-old pleasant lady with low positive anti-CCP, joint pains, history of psoriasis, response to NSAID therapy-ibuprofen is here for follow-up. 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 On ibuprofen she denies any pain. With missing dose she gets pain 3/10 in the hips and knees. She has no swelling. Stiffness in the mornings just a couple of minutes. She is tolerating ibuprofen without any problems. She denies any active psoriasis. She has osteopenia with T score -1.8 in the femoral neck on bone density February 2021. She denies any fractures. Recent imaging of her cervical and lumbar spine shows multilevel degenerative changes. New patient visit April 17, 2022 Suni Wilson is a 56 year old female who presents with positive anti-CCP, positive YOLI, joint pains is here for evaluation. She gives a history of psoriasis many years ago around 1999 during one of her pregnancies but has not had any active lesions. Since September 2021 she noticed increased joint pain 4/10 in her shoulders, low back, hips and knees. She has no swelling. Stiffness in the morning is less than 30 minutes. She has no rashes. She denies any significant fatigue or sicca symptoms. In January 2021 she noted some increased pain in her left ear, drumming sensation in the left ear. She has not seen ENT. She has noticed headaches on the back of her head. She has had a bone density scan February 2021 which showed osteopenia with T score -1.8 in the femoral neck. Her joint symptoms started after she received her Moderna vaccine July 2021. 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 Fracture 2007 fracture of left wrist Irregular menstrual cycle Irregular periods Multilevel degenerative disc disease 05/28/2022 neck and back Other psoriasis and similar disorders Psoriasis of hands PMH - PAST MEDICAL HISTORY OF rosacea Psoriatic arthritis (HCC) 05/28/2022 PAST SURGICAL HISTORY Procedure Laterality Date BIOPSY BREAST OPEN INCISIONAL 1995 Bx of breast, incisional DELIVERY ONLY , low cervical COLONOSCOPY 01/18/14 CORRECT BUNION,SIMPLE Bunion DILATION AND CURETTAGE DXAND/THER NONOBSTETRIC Dilation AND curettage PAST SURGICAL HISTORY OF 1994 sphincterotomy for anal fissure RHINP PRIM LATANDALAR CRTLGSAND/ELVTN NASAL TI Rhinoplasty STEREOTACTIC CORE BIOPSY 03/2006 Left breast STEREOTACTIC CORE BIOPSY 2006 left breast Health Maintenance Procedures HIV SCREENING Never done DIABETES SCREEN due on 06/18/2019 LIPID SCREEN due on 08/04/2022 DEPRESSION ASSESSMENT Never done Discussed health maintenance, including regular aerobic exercise, low fat diet, and periodic exams. Health Maintenance Immunizations Given Immunizations: Immunization History Administered Date(s) Administered COVID-19 original vaccine, full dose, monovalent (MODERNA) 11/15/2020 12/16/2020 08/21/2021 Influenza Seasonal Inj Age 3+ 07/09/2016 Influenza Seasonal Inj Quad Age 6 Mo - 64 Yrs 09/16/2019 Tdap (Age 7+) 02/27/2009 02/03/2019 Zoster Recombinant (Shingrix) 10/05/2019 02/21/2020 Current Outpatient Medications Medication Sig clobetasol (TEMOVATE) 0.05 % ointment Apply 1 application to affected area twice daily. Apply thin coat to affected tissue BID x 6 weeks then use 1 x weekly for maintenance escitalopram oxalate (LEXAPRO) 10 mg tablet azelaic acid-niacinamide 15-4 % crea Apply to affected area. clobetasol (TEMOVATE) 0.05 % ointment Apply to affected area nightly x 4 weeks then PRN at least 1 x week for maintenance nystatin (MYCOSTATIN) powder apply topically 4 times daily as needed (Patient not taking: Reported on 11/27/2022) No current facility-administered medications for this visit. ALLERGIES Allergen Reactions Alcohols, C12-15, E* Itching Eryc [Erythromycin] GI Upset Formaldehyde Itching Fragrances Itching Latex Itching Other Chemical In H* P-Tert Butyl Phenol=itching Penicillins uncertain FAMILY HISTORY Problem Relation Age of Onset Thyroid Mother hypo Cataract Mother Heart Mother mitral valve prolapse/VA Hypertension Mother Stroke Mother february 2018 other (osteopenia) Mother Hypertension Father Heart Father Endarterectomy 2011 Hyperlipidemia Father other (colon polyps) Brother Heart Paternal Grandfather Diabetes Paternal Aunt Thyroid Sister hypo Social History Tobacco Use Smoking status: Never Smokeless tobacco: Never Vaping Use Vaping Use: Never used Substance Use Topics Alcohol use: Yes Alcohol/week: 14.0 standard drinks Types: 14 Cans of Beer (12oz) per week Drug use: No History Review: I have reviewed and modified as needed, the fo (more content not included)... [facility] 11-27-2022 History of Present illness Narrative Subjective HPI: 57-year-old pleasant lady with low positive anti-CCP, joint pains, history of psoriasis, response to NSAID therapy-ibuprofen is here for follow-up. 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 On ibuprofen she denies any pain. With missing dose she gets pain 3/10 in the hips and knees. She has no swelling. Stiffness in the mornings just a couple of minutes. She is tolerating ibuprofen without any problems. She denies any active psoriasis. She has osteopenia with T score -1.8 in the femoral neck on bone density February 2021. She denies any fractures. Recent imaging of her cervical and lumbar spine shows multilevel degenerative changes. New patient visit April 17, 2022 Suni Wilson is a 56 year old female who presents with positive anti-CCP, positive YOLI, joint pains is here for evaluation. She gives a history of psoriasis many years ago around 1999 during one of her pregnancies but has not had any active lesions. Since September 2021 she noticed increased joint pain 4/10 in her shoulders, low back, hips and knees. She has no swelling. Stiffness in the morning is less than 30 minutes. She has no rashes. She denies any significant fatigue or sicca symptoms. In January 2021 she noted some increased pain in her left ear, drumming sensation in the left ear. She has not seen ENT. She has noticed headaches on the back of her head. She has had a bone density scan February 2021 which showed osteopenia with T score -1.8 in the femoral neck. Her joint symptoms started after she received her Moderna vaccine July 2021. 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 Fracture 2006 fracture of left wrist Irregular menstrual cycle Irregular periods Multilevel degenerative disc disease 05/28/2022 neck and back Other psoriasis and similar disorders Psoriasis of hands PMH - PAST MEDICAL HISTORY OF rosacea Psoriatic arthritis (HCC) 05/28/2022 PAST SURGICAL HISTORY Procedure Laterality Date BIOPSY BREAST OPEN INCISIONAL 1995 Bx of breast, incisional DELIVERY ONLY , low cervical COLONOSCOPY 01/18/14 CORRECT BUNION,SIMPLE Bunion DILATION & CURETTAGE DX&/THER NONOBSTETRIC Dilation & curettage PAST SURGICAL HISTORY OF 1994 sphincterotomy for anal fissure RHINP PRIM LAT&ALAR CRTLGS&/ELVTN NASAL TI Rhinoplasty STEREOTACTIC CORE BIOPSY 03/2006 Left breast STEREOTACTIC CORE BIOPSY 2006 left breast Health Maintenance Procedures HIV SCREENING Never done DIABETES SCREEN due on 06/18/2019 LIPID SCREEN due on 08/04/2022 DEPRESSION ASSESSMENT Never done Discussed health maintenance, including regular aerobic exercise, low fat diet, and periodic exams. Health Maintenance Immunizations Given Immunizations: Immunization History Administered Date(s) Administered COVID-19 original vaccine, full dose, monovalent (MODERNA) 11/15/2020 12/16/2020 08/21/2021 Influenza Seasonal Inj Age 3+ 07/09/2016 Influenza Seasonal Inj Quad Age 6 Mo - 64 Yrs 09/16/2019 Tdap (Age 7+) 02/27/2009 02/03/2019 Zoster Recombinant (Shingrix) 10/05/2019 02/21/2020 Current Outpatient Medications Medication Sig clobetasol (TEMOVATE) 0.05 % ointment Apply 1 application to affected area twice daily. Apply thin coat to affected tissue BID x 6 weeks then use 1 x weekly for maintenance escitalopram oxalate (LEXAPRO) 10 mg tablet azelaic acid-niacinamide 15-4 % crea Apply to affected area. clobetasol (TEMOVATE) 0.05 % ointment Apply to affected area nightly x 4 weeks then PRN at least 1 x week for maintenance nystatin (MYCOSTATIN) powder apply topically 4 times daily as needed (Patient not taking: Reported on 11/27/2022) No current facility-administered medications for this visit. ALLERGIES Allergen Reactions Alcohols, C12-15, E* Itching Eryc [Erythromycin] GI Upset Formaldehyde Itching Fragrances Itching Latex Itching Other Chemical In H* P-Tert Butyl Phenol=itching Penicillins uncertain FAMILY HISTORY Problem Relation Age of Onset Thyroid Mother hypo Cataract Mother Heart Mother mitral valve prolapse/VA Hypertension Mother Stroke Mother february 2018 other (osteopenia) Mother Hypertension Father Heart Father Endarterectomy 2011 Hyperlipidemia Father other (colon polyps) Brother Heart Paternal Grandfather Diabetes Paternal Aunt Thyroid Sister hypo Social History Tobacco Use Smoking status: Never Smokeless tobacco: Never Vaping Use Vaping Use: Never used Substance Use Topics Alcohol use: Yes Alcohol/week: 14.0 standard drinks Types: 14 Cans of Beer (12oz) per week Drug use: No History Review: I have reviewed and modified as needed, the following during this visit: Allergies, Past Medical History, Past Surgical History, Past Family History, Past Social History. Review of Systems CONSTITUTIONAL: Recent Weight Gain: No Recent Weight Loss: No Fatigue: No Weakness: Yes Fever: No EYES: Pain: No Redness: No Loss of vision: No Double or blurred vision: No Dryness: No Feels like something in eye: No Itching eyes: No [id number]: Ringing in ears: No Loss of hearing: No Nosebleeds: No Loss of smell: No Dryness in nose: No Runny Nose: No Sore tongue: No Bleeding gums: No Sores in mouth: No Loss of taste: No Dryness of mouth: No Frequent sore throats: No Hoarseness: No Difficulty in swallowing: No CARDIOVASCULAR: Pain in chest: No Irregular heart beat: No Sudden changes in heart beat: No High blood pressure: No Heart murmurs: No RESPIRATORY: Shortness of breath: No Difficulty in breathing at night: No Swollen legs or feet: No Cough: No Cough of blood: No Wheezing (asthma): No GASTROINTESTINAL: Nausea: No Vomiting of blood or coffee ground material: No Stomach pain relieved by food or milk: No Jaundice: No Increasing constipation: No Persistent diarrhea: No Blood in stools: No Black stools: No Heartburn: No GENITOURINARY: Difficult urination: No Pain or burning on urination: No Blood in urine: No Cloudy, smoky urine: No Pus in urine: No Discharge from penis/vagina: No Getting up at night to pass urine: No Vaginal dryness: No Rash/ulcers: No Sexual difficulties: No Prostate trouble: No MUSCULOSKELETAL: Morning Stiffness: Yes, Joint Pain: no, Muscle Weakness: no, Muscle Tenderness: no and Back Pain: Yes INTEGUMENTARY: Easy Bruising: No Redness: No Rash: No Hives: No Sun sensitive: No Tightness: No Nodules/bumps: No Hair loss: No Color changes of hands or feet in the cold: No NEUROLOGICAL SYSTEM: Headaches: Yes Dizziness: No Fainting: No Muscle spasm: No Loss of consciousness: No Sensitivity or pain of hands and/or feet: No Memory loss: No Night sweats: No PSYCHIATRIC: Excessive worries: No Anxiety: Yes Easily losing temper: No Depression: No Agitation: No Difficulty falling asleep: Yes Difficulty staying asleep: Yes ENDOCRINE: Excessive thirst: No HEMATOLOGIC/LYMPHATIC: Swollen glands: No Tender glands: No Anemia: No Bleeding tendency: No Transfusion/ when: No ALLERGIC/IMMUNOLOGIC; Frequent sneezing: No Increased susceptibility to infection: No BP 135/60 (BP Site: Left Arm, BP Position: Sitting) Pulse 62 Temp 36.4 C (97.6 F) Ht 163 cm (5' 4.17 ) Wt 66.9 kg (147 lb 8 oz) LMP 05/31/2012 SpO2 98% BMI 25.18 kg/m physical Exam GENERAL: Well appearing, alert, comfortable, in no acute distress, well-hydrated, well nourished. HEENT: Negative for external ears normal. Canals are clear. Both TMs visualized and are normal. Eye Exam normal. External nose normal, no nasal ulcer or throat ulcer. NECK: NECK Supple, no adenopathy; thyroid symmetric, normal size, no bruits CARDIAC: regular rate and rhythm, No murmur asculated. and Equal peripheral pulses RESPIRATORY: Lungs clear to auscultation. No wheezing, rhonchi, rales VASCULAR: RRR without murmur, gallop, or rubs. No ectopy. ABDOMEN: Soft, non tender. BS active. No masses or organomegaly. LYMPHATIC: Negative for adenopathy in the neck, axillae, groin, supraclavicular and auricular. NEURO: Motor and sensory exam normal MOTOR: Normal; including tone, gait, stressed gait, power and coordination. SKIN: Negative for alopecia, skin rash, malar rash, skin lesion, skin ulcer, pits, thickening, color changes, telangiectasias, nail changes, nail ridging, nail pitting, onycholysis MUSCULOSKELETAL: Mild tenderness left trochanteric bursa No fullness involving any joint Office visit March 2022 impingement both hips Impingement both shoulders especially with internal and external rotation Mild tenderness left TMJ Lab Results: March 2022 YOLI negative, rheumatoid factor negative, anti-CCP 51, hepatitis panel negative CRP 0.38 ESR 10 CBC normal Creatinine 0.7 Uric acid 5.2 Liver enzymes normal November 2021 YOLI 1: 160, anti-CCP 55, rheumatoid factor negative, hepatitis B surface antibody positive CRP 42.4 ESR 18 May 2021 CBC normal Liver enzymes normal Serology: March 2022 YOLI negative, rheumatoid factor negative, anti-CCP 51, hepatitis panel negative November 2021 YOLI 1: 160, anti-CCP 55, rheumatoid factor negative, hepatitis B surface antibody positive Radiology: March 2022 X-ray cervical spine-degenerative disc disease moderately diffuse with 2 mm retrolisthesis C5 on C6 X-ray lumbar spine Multi level endplate spondylosis with multilevel degenerative disc disease and facet arthropathy X-ray bilateral shoulders Normal X-ray bilateral SI joints Normal Bone density scan February 2021 T score -1.8 left femoral neck T score -1.6 lumbar spine Assessment (L40.50) Psoriatic arthropathy (HCC) (primary encounter diagnosis) (R76.8) Cyclic citrullinated peptide (CCP) antibody positive (M25.50) Pain in joint, multiple sites (M54.50) Low back pain, unspecified back pain laterality, unspecified chronicity, unspecified whether sciatica present (L40.9) Psoriasis (M85.89) Osteopenia of multiple sites (R76.0) Antinuclear antibody (YOLI) titer greater than 1:80 57-year-old pleasant lady with 1. Suspected psoriatic arthritis/spondylitis-multiple joint pains-onset of symptoms September 2021-mostly large and intermediate joint involvement-no clear synovitis on exam but has positive anti-CCP of 55, great response to ibuprofen and past history of psoriasis. Continues to be stable 2. History of psoriasis in 1999-no active lesions 3. Abnormal serologies-low positive anti-CCP at 53 and positive YOLI 1: 160 on recent blood work-on repeat testing anti-CCP still positive but YOLI negative 4. Elevated inflammatory markers-CRP significantly elevated, ESR mildly elevated-repeat testing March 2022 inflammatory markers normal. Monitor closely 5. Headache-cervicogenic headache?-Has multilevel degenerative changes affecting cervical spine 6. 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 X-ray cervical and lumbar spine show multilevel degenerative changes No evidence for any peripheral arthritis or significant enthesitis or dactylitis at this time She has no pain while on ibuprofen hence hold off on DMARD therapy She prefers to avoid any DMARD therapy at this time hence we will continue ibuprofen 600 mg twice daily Long discussion on psoriatic arthritis, management and treatment If progressive symptoms consider additional therapy including DMARDs versus Biologics Continue vitamin D supplementation for osteopenia Check vitamin D levels Continue bone density screening every 2 years Heat and massage for neck and low back symptoms to help with degenerative arthritis Follow-up in a year Office Visit on 11/27/22 CBC + DIFF COMP METABOLIC PANEL C-REACTIVE PROTEIN (CRP) SED RATE WESTERGREN VITAMIN D 25 HYDROXY Return in about 1 year (around 11/27/2023). Ricardo Jc MD documented in this encounter [facility] 11-04-2022 Note HNO ID: [id number] Author: Amrit Diaz APRN.CNM Service: ? Author Type: Health Information Manager Type: Progress Notes Filed: 11/07/2022 12:14 PM Note Text: Suni Wilson is a 57 year old female who presents for problem visit for breast problem. HPI: Patient noticed dimpling of left breast tissue on Friday after undressing. Located at 5:00, no pain or redness at area. Patient states she had stereotactic biopsy done in 2005 and 2006 with clip placement in that approximate area. Denies nipple drainage or history of recent trauma. 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 History Comments: Sexual Activity: Yes; Male Contraception: Vasectomy 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 Fracture 2006 fracture of left wrist Irregular menstrual cycle Irregular periods Multilevel degenerative disc disease 05/28/2022 neck and back Other psoriasis and similar disorders Psoriasis of hands PMH - PAST MEDICAL HISTORY OF rosacea Psoriatic arthritis (HCC) 05/28/2022 PAST SURGICAL HISTORY Procedure Laterality Date BIOPSY BREAST OPEN INCISIONAL 1995 Bx of breast, incisional DELIVERY ONLY , low cervical COLONOSCOPY 01/18/14 CORRECT BUNION,SIMPLE Bunion DILATION AND CURETTAGE DXAND/THER NONOBSTETRIC Dilation AND curettage PAST SURGICAL HISTORY OF 1994 sphincterotomy for anal fissure RHINP PRIM LATANDALAR CRTLGSAND/ELVTN NASAL TI Rhinoplasty STEREOTACTIC CORE BIOPSY 03/2006 Left breast STEREOTACTIC CORE BIOPSY 2006 left breast FAMILY HISTORY Problem Relation Age of Onset Thyroid Mother hypo Cataract Mother Heart Mother mitral valve prolapse/VA Hypertension Mother Stroke Mother february 2018 other (osteopenia) Mother Hypertension Father Heart Father Endarterectomy 2011 Hyperlipidemia Father other (colon polyps) Brother Heart Paternal Grandfather Diabetes Paternal Aunt Thyroid Sister hypo Social History Tobacco Use Smoking status: Never Smokeless tobacco: Never Vaping Use Vaping Use: Never used Substance Use Topics Alcohol use: Yes Alcohol/week: 14.0 standard drinks Types: 14 Cans of Beer (12oz) per week Drug use: No Current Outpatient Medications Medication Sig clobetasol (TEMOVATE) 0.05 % ointment Apply 1 application to affected area twice daily. Apply thin coat to affected tissue BID x 6 weeks then use 1 x weekly for maintenance escitalopram oxalate (LEXAPRO) 10 mg tablet nystatin (MYCOSTATIN) powder apply topically 4 times daily as needed azelaic acid-niacinamide 15-4 % crea Apply to affected area. clobetasol (TEMOVATE) 0.05 % ointment Apply to affected area nightly x 4 weeks then PRN at least 1 x week for maintenance meloxicam (MOBIC) 15 mg tablet Take 15 mg by mouth once daily. (Patient not taking: Reported on 04/09/2022 ) No current facility-administered medications for this visit. Allergies As of Date: 11/04/2022 Allergen Noted Reaction ALCOHOLS, C12-15, ETHOXYLATED 11/04/2005 Itching ERYC [ERYTHROMYCIN] 11/04/2005 GI Upset FORMALDEHYDE 11/04/2005 Itching FRAGRANCES 11/04/2005 Itching LATEX 11/06/2006 Itching OTHER CHEMICAL IN HAIR CARE PRODU*11/05/2005 PENICILLINS 11/04/2005 Fully Assessed 11/04/2022 REVIEW OF SYSTEMS Abdomen: No bloating, early satiety, indigestion, or increased flatulence. No abdominal pain, nausea, vomiting, diarrhea, or constipation. Bladder: No dysuria, gross hematuria, urinary frequency, urinary urgency, or incontinence. Breast: Skin changes noted. Expanded ROS: N/A Allergies and current medication updated:Yes EXAM: LMP 05/31/2012 BP 116/70 Wt 146 lb 3.2 oz (66.3 kg) LMP 05/31/2012 BMI 24.33 kg/m? GENERAL: pleasant, female in no apparent distress HEENT: Normocephalic, atraumatic, mucus membranes moist, and no lesions NECK: Supple, full range of motion, no adenopathy, and thyroid normal DERMATOLOGY: Normal, without lesions, non-icteric, and non-hirsute BREAST: soft, no dominant mass, normal nipple-areolar complex, no lymphadenopathy, no nipple discharge, breasts asymmetrical Left greater than right. Has always been this way, dimpling at 5:00 on left breast, thickened underlying tissue on left breast, tender to palpation, no discoloration CHEST: Normal inspiratory effort ABDOMEN: soft, non-tender, and no masses PELVIC: deferred BIMANUAL: deferred NEURO: alert and oriented x3,exam grossly non-focal EXTREMITIES: normal ASSESSMENT AND PLAN: 1. Change of skin of breast - ICD9: 782.8, ICD10: R23.4 (primary diagnosis) -breast dimple present,diagnostic mammogram with breast ultrasound. 2. Mass of lower outer quadrant of left breast - ICD9: 611.72, ICD10: N63.23 - US BR (more content not included)... [facility] 05-27-2022 Note HNO ID: [id number] Author: Ricardo Jc MD Service: ? Author Type: Physician Type: Progress Notes Filed: 05/27/2022 2:43 PM Note Text: Subjective A phone visit telemedicine visit was substituted for a protocol-required in-person visit because of the recent COVID-19 pandemic which has caused disruption in normal operations spanning access to care, medical treatment, medications, etc. This phone or virtual visit was conducted to prevent exposure of the patient to the virus and to optimize the patient's safety that comes with inherent limitations of a phone encounter. HPI: New patient follow-up 56-year-old pleasant lady with low positive anti-CCP, joint pains, history of psoriasis, response to NSAID therapy-ibuprofen is here for follow-up. She has no pain right now. She takes ibuprofen 600 mg twice daily which helps with her joint pain. When she misses ibuprofen she is noticed increased pain in her hips shoulders, neck and knees. She has no swelling. Stiffness in the morning is a few minutes. She has no psoriasis. She has osteopenia with T score -1.8 in the femoral neck on bone density February 2021. She denies any fractures. Recent imaging of her cervical and lumbar spine shows multilevel degenerative changes. New patient visit April 17, 2022 Suni Wilson is a 56 year old female who presents with positive anti-CCP, positive YOLI, joint pains is here for evaluation. She gives a history of psoriasis many years ago around 1999 during one of her pregnancies but has not had any active lesions. Since September 2021 she noticed increased joint pain 4/10 in her shoulders, low back, hips and knees. She has no swelling. Stiffness in the morning is less than 30 minutes. She has no rashes. She denies any significant fatigue or sicca symptoms. In January 2021 she noted some increased pain in her left ear, drumming sensation in the left ear. She has not seen ENT. She has noticed headaches on the back of her head. She has had a bone density scan February 2021 which showed osteopenia with T score -1.8 in the femoral neck. Her joint symptoms started after she received her Moderna vaccine July 2021. 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 - Fracture 2006 fracture of left wrist - Irregular menstrual cycle Irregular periods - Other psoriasis and similar disorders Psoriasis of hands - PMH - PAST MEDICAL HISTORY OF rosacea PAST SURGICAL HISTORY Procedure Laterality Date - BIOPSY BREAST OPEN INCISIONAL 1995 Bx of breast, incisional - DELIVERY ONLY , low cervical - COLONOSCOPY 01/18/14 - CORRECT BUNION,SIMPLE Bunion - DILATION AND CURETTAGE DXAND/THER NONOBSTETRIC Dilation AND curettage - PAST SURGICAL HISTORY OF 1994 sphincterotomy for anal fissure - RHINP PRIM LATANDALAR CRTLGSAND/ELVTN NASAL TI Rhinoplasty - STEREOTACTIC CORE BIOPSY 03/2006 Left breast - STEREOTACTIC CORE BIOPSY 2006 left breast Health Maintenance Procedures HIV SCREENING Never done DEPRESSION SCREENING due on 07/09/2017 DIABETES SCREEN due on 06/18/2019 Discussed health maintenance, including regular aerobic exercise, low fat diet, and periodic exams. Health Maintenance Immunizations Given Immunizations: Immunization History Administered Date(s) Administered COVID-19 vaccine, full dose (MODERNA) 11/15/2020 12/16/2020 08/21/2021 Influenza Seasonal Inj Age 3+ 07/09/2016 Influenza Seasonal Inj Quad Age 6 Mo - 64 Yrs 09/16/2019 Tdap (Age 7+) 02/27/2009 02/03/2019 Zoster Recombinant (Shingrix) 10/05/2019 02/21/2020 Current Outpatient Medications Medication Sig - escitalopram oxalate (LEXAPRO) 10 mg tablet - nystatin (MYCOSTATIN) powder apply topically 4 times daily as needed - meloxicam (MOBIC) 15 mg tablet Take 15 mg by mouth once daily. (Patient not taking: Reported on 04/09/2022 ) - clobetasol (TEMOVATE) 0.05 % ointment Apply 1 application to affected area twice daily. Apply thin coat to affected tissue BID x 6 weeks then use 1 x weekly for maintenance - azelaic acid-niacinamide 15-4 % crea Apply to affected area. - clobetasol (TEMOVATE) 0.05 % ointment Apply to affected area nightly x 4 weeks then PRN at least 1 x week for maintenance No current facility-administered medications for this visit. ALLERGIES Allergen Reactions - Alcohols, C12-15, E* Itching - Eryc [Erythromycin] GI Upset - Formaldehyde Itching - Fragrances Itching - Latex Itching - Other Chemical In H* P-Tert Butyl Phenol=itching - Penicillins uncertain FAMILY HISTORY Problem Relation Age of Onset - Thyroid Mother hypo - Cataract Mother - Heart Mother mitral valve prolapse/VA - Hypertension Mother - Stroke Mother february 2018 - other (osteopenia) Mother - Hypertension Father - Heart Father Endarterectomy 2011 - Hyperlipidemia F (more content not included)... [facility] 05-27-2022 History of Present illness Narrative Subjective A phone visit telemedicine visit was substituted for a protocol-required in-person visit because of the recent COVID-19 pandemic which has caused disruption in normal operations spanning access to care, medical treatment, medications, etc. This phone or virtual visit was conducted to prevent exposure of the patient to the virus and to optimize the patient's safety that comes with inherent limitations of a phone encounter. HPI: New patient follow-up 56-year-old pleasant lady with low positive anti-CCP, joint pains, history of psoriasis, response to NSAID therapy-ibuprofen is here for follow-up. She has no pain right now. She takes ibuprofen 600 mg twice daily which helps with her joint pain. When she misses ibuprofen she is noticed increased pain in her hips shoulders, neck and knees. She has no swelling. Stiffness in the morning is a few minutes. She has no psoriasis. She has osteopenia with T score -1.8 in the femoral neck on bone density February 2021. She denies any fractures. Recent imaging of her cervical and lumbar spine shows multilevel degenerative changes. New patient visit April 17, 2022 Suni Wilson is a 56 year old female who presents with positive anti-CCP, positive YOLI, joint pains is here for evaluation. She gives a history of psoriasis many years ago around 1999 during one of her pregnancies but has not had any active lesions. Since September 2021 she noticed increased joint pain 4/10 in her shoulders, low back, hips and knees. She has no swelling. Stiffness in the morning is less than 30 minutes. She has no rashes. She denies any significant fatigue or sicca symptoms. In January 2021 she noted some increased pain in her left ear, drumming sensation in the left ear. She has not seen ENT. She has noticed headaches on the back of her head. She has had a bone density scan February 2021 which showed osteopenia with T score -1.8 in the femoral neck. Her joint symptoms started after she received her Moderna vaccine July 2021. 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 Fracture 2006 fracture of left wrist Irregular menstrual cycle Irregular periods Other psoriasis and similar disorders Psoriasis of hands PMH - PAST MEDICAL HISTORY OF rosacea PAST SURGICAL HISTORY Procedure Laterality Date BIOPSY BREAST OPEN INCISIONAL 1995 Bx of breast, incisional DELIVERY ONLY , low cervical COLONOSCOPY 01/18/14 CORRECT BUNION,SIMPLE Bunion DILATION & CURETTAGE DX&/THER NONOBSTETRIC Dilation & curettage PAST SURGICAL HISTORY OF 1994 sphincterotomy for anal fissure RHINP PRIM LAT&ALAR CRTLGS&/ELVTN NASAL TI Rhinoplasty STEREOTACTIC CORE BIOPSY 03/2006 Left breast STEREOTACTIC CORE BIOPSY 2006 left breast Health Maintenance Procedures HIV SCREENING Never done DEPRESSION SCREENING due on 07/09/2017 DIABETES SCREEN due on 06/18/2019 Discussed health maintenance, including regular aerobic exercise, low fat diet, and periodic exams. Health Maintenance Immunizations Given Immunizations: Immunization History Administered Date(s) Administered COVID-19 vaccine, full dose (MODERNA) 11/15/2020 12/16/2020 08/21/2021 Influenza Seasonal Inj Age 3+ 07/09/2016 Influenza Seasonal Inj Quad Age 6 Mo - 64 Yrs 09/16/2019 Tdap (Age 7+) 02/27/2009 02/03/2019 Zoster Recombinant (Shingrix) 10/05/2019 02/21/2020 Current Outpatient Medications Medication Sig escitalopram oxalate (LEXAPRO) 10 mg tablet nystatin (MYCOSTATIN) powder apply topically 4 times daily as needed meloxicam (MOBIC) 15 mg tablet Take 15 mg by mouth once daily. (Patient not taking: Reported on 04/09/2022 ) clobetasol (TEMOVATE) 0.05 % ointment Apply 1 application to affected area twice daily. Apply thin coat to affected tissue BID x 6 weeks then use 1 x weekly for maintenance azelaic acid-niacinamide 15-4 % crea Apply to affected area. clobetasol (TEMOVATE) 0.05 % ointment Apply to affected area nightly x 4 weeks then PRN at least 1 x week for maintenance No current facility-administered medications for this visit. ALLERGIES Allergen Reactions Alcohols, C12-15, E* Itching Eryc [Erythromycin] GI Upset Formaldehyde Itching Fragrances Itching Latex Itching Other Chemical In H* P-Tert Butyl Phenol=itching Penicillins uncertain FAMILY HISTORY Problem Relation Age of Onset Thyroid Mother hypo Cataract Mother Heart Mother mitral valve prolapse/VA Hypertension Mother Stroke Mother february 2018 other (osteopenia) Mother Hypertension Father Heart Father Endarterectomy 2011 Hyperlipidemia Father other (colon polyps) Brother Heart Paternal Grandfather Diabetes Paternal Aunt Thyroid Sister hypo Social History Tobacco Use Smoking status: Never Smoker Smokeless tobacco: Never Used Vaping Use Vaping Use: Never used Substance Use Topics Alcohol use: Yes Alcohol/week: 14.0 standard drinks Types: 14 Cans of Beer (12oz) per week Drug use: No History Review: I have reviewed and modified as needed, the following during this visit: Allergies, Past Medical History, Past Surgical History, Past Family History, Past Social History. Review of Systems CONSTITUTIONAL: Recent Weight Gain: No Recent Weight Loss: No Fatigue: No Weakness: Yes Fever: No EYES: Pain: No Redness: No Loss of vision: No Double or blurred vision: No Dryness: No Feels like something in eye: No Itching eyes: No [id number]-THROAT: Ringing in ears: No Loss of hearing: No Nosebleeds: No Loss of smell: No Dryness in nose: No Runny Nose: No Sore tongue: No Bleeding gums: No Sores in mouth: No Loss of taste: No Dryness of mouth: No Frequent sore throats: No Hoarseness: No Difficulty in swallowing: No CARDIOVASCULAR: Pain in chest: No Irregular heart beat: No Sudden changes in heart beat: No High blood pressure: No Heart murmurs: No RESPIRATORY: Shortness of breath: No Difficulty in breathing at night: No Swollen legs or feet: No Cough: No Cough of blood: No Wheezing (asthma): No GASTROINTESTINAL: Nausea: No Vomiting of blood or coffee ground material: No Stomach pain relieved by food or milk: No Jaundice: No Increasing constipation: No Persistent diarrhea: No Blood in stools: No Black stools: No Heartburn: No GENITOURINARY: Difficult urination: No Pain or burning on urination: No Blood in urine: No Cloudy, smoky urine: No Pus in urine: No Discharge from penis/vagina: No Getting up at night to pass urine: No Vaginal dryness: No Rash/ulcers: No Sexual difficulties: No Prostate trouble: No MUSCULOSKELETAL: Morning Stiffness: Yes, Joint Pain: Yes, Muscle Weakness: no, Muscle Tenderness: no and Back Pain: Yes INTEGUMENTARY: Easy Bruising: No Redness: No Rash: No Hives: No Sun sensitive: No Tightness: No Nodules/bumps: No Hair loss: No Color changes of hands or feet in the cold: No NEUROLOGICAL SYSTEM: Headaches: Yes Dizziness: No Fainting: No Muscle spasm: No Loss of consciousness: No Sensitivity or pain of hands and/or feet: No Memory loss: No Night sweats: No PSYCHIATRIC: Excessive worries: No Anxiety: Yes Easily losing temper: No Depression: No Agitation: No Difficulty falling asleep: Yes Difficulty staying asleep: Yes ENDOCRINE: Excessive thirst: No HEMATOLOGIC/LYMPHATIC: Swollen glands: No Tender glands: No Anemia: No Bleeding tendency: No Transfusion/ when: No ALLERGIC/IMMUNOLOGIC; Frequent sneezing: No Increased susceptibility to infection: No LMP 05/31/2012 VIDEO EXAM: (performed via video enabled technology) GENERAL: Well appearing, alert, comfortable, in no acute distress,well nourished. Eyes: vision grossly intact Hearing -grossly intact HEENT: external ears normal. External nose normal, NECK: thyroid appears symmetric Neuro- Speech intact. No facial droop Musculoskeletal- Able to make a tight fist with both hands Orientation - Oriented to time, place, person & situation. Appropriate mood and affect. Good insight. Good judgment. Office visit March 2022 physical Exam GENERAL: Well appearing, alert, comfortable, in no acute distress, well-hydrated, well nourished. HEENT: Negative for external ears normal. Canals are clear. Both TMs visualized and are normal. Eye Exam normal. External nose normal, no nasal ulcer or throat ulcer. NECK: NECK Supple, no adenopathy; thyroid symmetric, normal size, no bruits CARDIAC: regular rate and rhythm, No murmur asculated. and Equal peripheral pulses RESPIRATORY: Lungs clear to auscultation. No wheezing, rhonchi, rales VASCULAR: RRR without murmur, gallop, or rubs. No ectopy. ABDOMEN: Soft, non tender. BS active. No masses or organomegaly. LYMPHATIC: Negative for adenopathy in the neck, axillae, groin, supraclavicular and auricular. NEURO: Motor and sensory exam normal MOTOR: Normal; including tone, gait, stressed gait, power and coordination. SKIN: Negative for alopecia, skin rash, malar rash, skin lesion, skin ulcer, pits, thickening, color changes, telangiectasias, nail changes, nail ridging, nail pitting, onycholysis MUSCULOSKELETAL: Impingement both hips Impingement both shoulders especially with internal and external rotation Mild tenderness left TMJ Lab Results: March 2022 YOLI negative, rheumatoid factor negative, anti-CCP 51, hepatitis panel negative CRP 0.38 ESR 10 CBC normal Creatinine 0.7 Uric acid 5.2 Liver enzymes normal November 2021 YOLI 1: 160, anti-CCP 55, rheumatoid factor negative, hepatitis B surface antibody positive CRP 42.4 ESR 18 May 2021 CBC normal Liver enzymes normal Serology: March 2022 YOLI negative, rheumatoid factor negative, anti-CCP 51, hepatitis panel negative November 2021 YOLI 1: 160, anti-CCP 55, rheumatoid factor negative, hepatitis B surface antibody positive Radiology: March 2022 X-ray cervical spine-degenerative disc disease moderately diffuse with 2 mm retrolisthesis C5 on C6 X-ray lumbar spine Multi level endplate spondylosis with multilevel degenerative disc disease and facet arthropathy X-ray bilateral shoulders Normal X-ray bilateral SI joints Normal Bone density scan February 2021 T score -1.8 left femoral neck T score -1.6 lumbar spine Assessment (R76.8) Cyclic citrullinated peptide (CCP) antibody positive (primary encounter diagnosis) (M25.50) Pain in joint, multiple sites (M54.50) Low back pain, unspecified back pain laterality, unspecified chronicity, unspecified whether sciatica present (L40.9) Psoriasis (M85.89) Osteopenia of multiple sites (L40.50) Psoriatic arthropathy (HCC) 56-year-old pleasant lady with 1. Suspected psoriatic arthritis-multiple joint pains-onset of symptoms September 2021-mostly large and intermediate joint involvement-no clear synovitis on exam but has positive anti-CCP of 55, great response to ibuprofen and past history of psoriasis. 2. History of psoriasis in 1999-no active lesions 3. Abnormal serologies-low positive anti-CCP at 53 and positive YOLI 1: 160 on recent blood work-on repeat testing anti-CCP still positive but YOLI negative 4. Elevated inflammatory markers-CRP significantly elevated, ESR mildly elevated-repeat testing March 2022 inflammatory markers normal 5. Headache-cervicogenic headache?-Has multilevel degenerative changes affecting cervical spine 6. 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 X-ray cervical and lumbar spine show multilevel degenerative changes No evidence for any peripheral arthritis or significant enthesitis or dactylitis at this time She prefers to avoid any DMARD therapy at this time hence we will continue ibuprofen 600 mg twice daily Long discussion on psoriatic arthritis, management and treatment If progressive symptoms consider additional therapy including DMARDs versus Biologics Continue vitamin D supplementation for osteopenia Continue bone density screening every 2 years Heat and massage for neck and low back symptoms to help with degenerative arthritis Long discussion on psoriatic spondylitis and management follow-up in 6 months During this patients visit I have spent more then 50% Face to Face time out of 40 mins in counseling regarding treatment options, medications and test results and coordinating care No orders found for this visit on 05/27/22. Return in about 6 months (around 11/27/2022). Ricardo Jc MD documented in this encounter [facility] 04-09-2022 Note HNO ID: [id number] Author: Ricardo Jc MD Service: ? Author Type: Physician Type: Progress Notes Filed: 04/09/2022 10:48 AM Note Text: Subjective HPI: Suni Wilson is a 56 year old female who presents with positive anti-CCP, positive YOLI, joint pains is here for evaluation. She gives a history of psoriasis many years ago around 1999 during one of her pregnancies but has not had any active lesions. Since September 2021 she noticed increased joint pain 4/10 in her shoulders, low back, hips and knees. She has no swelling. Stiffness in the morning is less than 30 minutes. She has no rashes. She denies any significant fatigue or sicca symptoms. In January 2021 she noted some increased pain in her left ear, drumming sensation in the left ear. She has not seen ENT. She has noticed headaches on the back of her head. She has had a bone density scan February 2021 which showed osteopenia with T score -1.8 in the femoral neck. Her joint symptoms started after she received her Moderna vaccine July 2021. 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 - Fracture 2006 fracture of left wrist - Irregular menstrual cycle Irregular periods - Other psoriasis and similar disorders Psoriasis of hands - PMH - PAST MEDICAL HISTORY OF rosacea PAST SURGICAL HISTORY Procedure Laterality Date - BIOPSY BREAST OPEN INCISIONAL 1995 Bx of breast, incisional - DELIVERY ONLY , low cervical - COLONOSCOPY 01/18/14 - CORRECT BUNION,SIMPLE Bunion - DILATION AND CURETTAGE DXAND/THER NONOBSTETRIC Dilation AND curettage - PAST SURGICAL HISTORY OF 1994 sphincterotomy for anal fissure - RHINP PRIM LATANDALAR CRTLGSAND/ELVTN NASAL TI Rhinoplasty - STEREOTACTIC CORE BIOPSY 03/2006 Left breast - STEREOTACTIC CORE BIOPSY 2006 left breast Health Maintenance Procedures HIV SCREENING Never done DEPRESSION SCREENING due on 07/09/2017 DIABETES SCREEN due on 06/18/2019 Discussed health maintenance, including regular aerobic exercise, low fat diet, and periodic exams. Health Maintenance Immunizations Given Immunizations: Immunization History Administered Date(s) Administered COVID-19 vaccine, full dose (MODERNA) 11/15/2020 12/16/2020 08/21/2021 Influenza Seasonal Inj Age 3+ 07/09/2016 Influenza Seasonal Inj Quad Age 6 Mo - 64 Yrs 09/16/2019 Tdap (Age 7+) 02/27/2009 02/03/2019 Zoster Recombinant (Shingrix) 10/05/2019 02/21/2020 Current Outpatient Medications Medication Sig - escitalopram oxalate (LEXAPRO) 10 mg tablet - azelaic acid-niacinamide 15-4 % crea Apply to affected area. - clobetasol (TEMOVATE) 0.05 % ointment Apply to affected area nightly x 4 weeks then PRN at least 1 x week for maintenance - nystatin (MYCOSTATIN) powder apply topically 4 times daily as needed - meloxicam (MOBIC) 15 mg tablet Take 15 mg by mouth once daily. (Patient not taking: Reported on 04/09/2022 ) - clobetasol (TEMOVATE) 0.05 % ointment Apply 1 application to affected area twice daily. Apply thin coat to affected tissue BID x 6 weeks then use 1 x weekly for maintenance No current facility-administered medications for this visit. ALLERGIES Allergen Reactions - Alcohols, C12-15, E* Itching - Eryc [Erythromycin] GI Upset - Formaldehyde Itching - Fragrances Itching - Latex Itching - Other Chemical In H* P-Tert Butyl Phenol=itching - Penicillins uncertain FAMILY HISTORY Problem Relation Age of Onset - Thyroid Mother hypo - Cataract Mother - Heart Mother mitral valve prolapse/VA - Hypertension Mother - Stroke Mother february 2018 - other (osteopenia) Mother - Hypertension Father - Heart Father Endarterectomy 2011 - Hyperlipidemia Father - other (colon polyps) Brother - Heart Paternal Grandfather - Diabetes Paternal Aunt - Thyroid Sister hypo Social History Tobacco Use - Smoking status: Never Smoker - Smokeless tobacco: Never Used Vaping Use - Vaping Use: Never used Substance Use Topics - Alcohol use: Yes Alcohol/week: 14.0 standard drinks Types: 14 Cans of Beer (12oz) per week - Drug use: No History Review: I have reviewed and modified as needed, the following during this visit: Allergies, Past Medical History, Past Surgical History, Past Family History, Past Social History. Review of Systems CONSTITUTIONAL: Recent Weight Gain: No Recent Weight Loss: No Fatigue: No Weakness: Yes Fever: No EYES: Pain: No Redness: No Loss of vision: No Double or blurred vision: No Dryness: No Feels like something in eye: No Itching eyes: No [id number]: Ringing in ears: No Loss of hearing: No Nosebleeds: No Loss of smell: No Dryness in nose: No Runny Nose: No Sore tongue: No Bleeding gums: No Sores in mouth: No Loss of taste: No Dryness of mouth: No Frequent sore (more content not included)... [facility] 04-09-2022 History of Present illness Narrative Subjective HPI: Suni Wilson is a 56 year old female who presents with positive anti-CCP, positive YOLI, joint pains is here for evaluation. She gives a history of psoriasis many years ago around 1999 during one of her pregnancies but has not had any active lesions. Since September 2021 she noticed increased joint pain 4/10 in her shoulders, low back, hips and knees. She has no swelling. Stiffness in the morning is less than 30 minutes. She has no rashes. She denies any significant fatigue or sicca symptoms. In January 2021 she noted some increased pain in her left ear, drumming sensation in the left ear. She has not seen ENT. She has noticed headaches on the back of her head. She has had a bone density scan February 2021 which showed osteopenia with T score -1.8 in the femoral neck. Her joint symptoms started after she received her Moderna vaccine July 2021. PAST MEDICAL HISTORY Diagnosis Date Actinic keratitis 11/2011 actinic keratinosis Basal cell carcinoma Complex endometrial hyperplasia 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 2010 Fracture 2006 fracture of left wrist Irregular menstrual cycle Irregular periods Other psoriasis and similar disorders Psoriasis of hands PMH - PAST MEDICAL HISTORY OF rosacea PAST SURGICAL HISTORY Procedure Laterality Date BIOPSY BREAST OPEN INCISIONAL 1995 Bx of breast, incisional DELIVERY ONLY , low cervical COLONOSCOPY 01/18/14 CORRECT BUNION,SIMPLE Bunion DILATION & CURETTAGE DX&/THER NONOBSTETRIC Dilation & curettage PAST SURGICAL HISTORY OF 1994 sphincterotomy for anal fissure RHINP PRIM LAT&ALAR CRTLGS&/ELVTN NASAL TI Rhinoplasty STEREOTACTIC CORE BIOPSY 03/2006 Left breast STEREOTACTIC CORE BIOPSY 2006 left breast Health Maintenance Procedures HIV SCREENING Never done DEPRESSION SCREENING due on 07/09/2017 DIABETES SCREEN due on 06/18/2019 Discussed health maintenance, including regular aerobic exercise, low fat diet, and periodic exams. Health Maintenance Immunizations Given Immunizations: Immunization History Administered Date(s) Administered COVID-19 vaccine, full dose (MODERNA) 11/15/2020 12/16/2020 08/21/2021 Influenza Seasonal Inj Age 3+ 07/09/2016 Influenza Seasonal Inj Quad Age 6 Mo - 64 Yrs 09/16/2019 Tdap (Age 7+) 02/27/2009 02/03/2019 Zoster Recombinant (Shingrix) 10/05/2019 02/21/2020 Current Outpatient Medications Medication Sig escitalopram oxalate (LEXAPRO) 10 mg tablet azelaic acid-niacinamide 15-4 % crea Apply to affected area. clobetasol (TEMOVATE) 0.05 % ointment Apply to affected area nightly x 4 weeks then PRN at least 1 x week for maintenance nystatin (MYCOSTATIN) powder apply topically 4 times daily as needed meloxicam (MOBIC) 15 mg tablet Take 15 mg by mouth once daily. (Patient not taking: Reported on 04/09/2022 ) clobetasol (TEMOVATE) 0.05 % ointment Apply 1 application to affected area twice daily. Apply thin coat to affected tissue BID x 6 weeks then use 1 x weekly for maintenance No current facility-administered medications for this visit. ALLERGIES Allergen Reactions Alcohols, C12-15, E* Itching Eryc [Erythromycin] GI Upset Formaldehyde Itching Fragrances Itching Latex Itching Other Chemical In H* P-Tert Butyl Phenol=itching Penicillins uncertain FAMILY HISTORY Problem Relation Age of Onset Thyroid Mother hypo Cataract Mother Heart Mother mitral valve prolapse/VA Hypertension Mother Stroke Mother february 2018 other (osteopenia) Mother Hypertension Father Heart Father Endarterectomy 2011 Hyperlipidemia Father other (colon polyps) Brother Heart Paternal Grandfather Diabetes Paternal Aunt Thyroid Sister hypo Social History Tobacco Use Smoking status: Never Smoker Smokeless tobacco: Never Used Vaping Use Vaping Use: Never used Substance Use Topics Alcohol use: Yes Alcohol/week: 14.0 standard drinks Types: 14 Cans of Beer (12oz) per week Drug use: No History Review: I have reviewed and modified as needed, the following during this visit: Allergies, Past Medical History, Past Surgical History, Past Family History, Past Social History. Review of Systems CONSTITUTIONAL: Recent Weight Gain: No Recent Weight Loss: No Fatigue: No Weakness: Yes Fever: No EYES: Pain: No Redness: No Loss of vision: No Double or blurred vision: No Dryness: No Feels like something in eye: No Itching eyes: No [id number]-UCTLS-THROAT: Ringing in ears: No Loss of hearing: No Nosebleeds: No Loss of smell: No Dryness in nose: No Runny Nose: No Sore tongue: No Bleeding gums: No Sores in mouth: No Loss of taste: No Dryness of mouth: No Frequent sore throats: No Hoarseness: No Difficulty in swallowing: No CARDIOVASCULAR: Pain in chest: No Irregular heart beat: No Sudden changes in heart beat: No High blood pressure: No Heart murmurs: No RESPIRATORY: Shortness of breath: No Difficulty in breathing at night: No Swollen legs or feet: No Cough: No Cough of blood: No Wheezing (asthma): No GASTROINTESTINAL: Nausea: No Vomiting of blood or coffee ground material: No Stomach pain relieved by food or milk: No Jaundice: No Increasing constipation: No Persistent diarrhea: No Blood in stools: No Black stools: No Heartburn: No GENITOURINARY: Difficult urination: No Pain or burning on urination: No Blood in urine: No Cloudy, smoky urine: No Pus in urine: No Discharge from penis/vagina: No Getting up at night to pass urine: No Vaginal dryness: No Rash/ulcers: No Sexual difficulties: No Prostate trouble: No MUSCULOSKELETAL: Morning Stiffness: Yes, Joint Pain: Yes, Muscle Weakness: Yes, Muscle Tenderness: Yes and Back Pain: Yes INTEGUMENTARY: Easy Bruising: No Redness: No Rash: No Hives: No Sun sensitive: No Tightness: No Nodules/bumps: No Hair loss: No Color changes of hands or feet in the cold: No NEUROLOGICAL SYSTEM: Headaches: Yes Dizziness: No Fainting: No Muscle spasm: No Loss of consciousness: No Sensitivity or pain of hands and/or feet: No Memory loss: No Night sweats: No PSYCHIATRIC: Excessive worries: No Anxiety: Yes Easily losing temper: No Depression: No Agitation: No Difficulty falling asleep: Yes Difficulty staying asleep: Yes ENDOCRINE: Excessive thirst: No HEMATOLOGIC/LYMPHATIC: Swollen glands: No Tender glands: No Anemia: No Bleeding tendency: No Transfusion/ when: No ALLERGIC/IMMUNOLOGIC; Frequent sneezing: No Increased susceptibility to infection: No BP 131/57 Pulse 61 Temp 36.8 C (98.2 F) Ht 165.1 cm (5' 5 ) Wt 63.8 kg (140 lb 9.6 oz) LMP 05/31/2012 BMI 23.40 kg/m Physical Exam GENERAL: Well appearing, alert, comfortable, in no acute distress, well-hydrated, well nourished. HEENT: Negative for external ears normal. Canals are clear. Both TMs visualized and are normal. Eye Exam normal. External nose normal, no nasal ulcer or throat ulcer. NECK: NECK Supple, no adenopathy; thyroid symmetric, normal size, no bruits CARDIAC: regular rate and rhythm, No murmur asculated. and Equal peripheral pulses RESPIRATORY: Lungs clear to auscultation. No wheezing, rhonchi, rales VASCULAR: RRR without murmur, gallop, or rubs. No ectopy. ABDOMEN: Soft, non tender. BS active. No masses or organomegaly. LYMPHATIC: Negative for adenopathy in the neck, axillae, groin, supraclavicular and auricular. NEURO: Motor and sensory exam normal MOTOR: Normal; including tone, gait, stressed gait, power and coordination. SKIN: Negative for alopecia, skin rash, malar rash, skin lesion, skin ulcer, pits, thickening, color changes, telangiectasias, nail changes, nail ridging, nail pitting, onycholysis MUSCULOSKELETAL: Impingement both hips Impingement both shoulders especially with internal and external rotation Mild tenderness left TMJ Lab Results: November 2021 YOLI 1: 160, anti-CCP 55, rheumatoid factor negative, hepatitis B surface antibody positive CRP 42.4 ESR 18 May 2021 CBC normal Liver enzymes normal Serology: November 2021 YOLI 1: 160, anti-CCP 55, rheumatoid factor negative, hepatitis B surface antibody positive Radiology: Bone density scan February 2021 T score -1.8 left femoral neck T score -1.6 lumbar spine Assessment (R76.8) Cyclic citrullinated peptide (CCP) antibody positive (primary encounter diagnosis) (M25.50) Pain in joint, multiple sites (R79.82) CRP elevated (M54.50) Low back pain, unspecified back pain laterality, unspecified chronicity, unspecified whether sciatica present (M85.89) Osteopenia of multiple sites (L40.9) Psoriasis (R76.0) Antinuclear antibody (YOLI) titer greater than 1:80 56-year-old pleasant lady with 1. Multiple joint pains-onset of symptoms September 2021-mostly large and intermediate joint involvement-no clear synovitis on exam and no small joint involvement. History concerning for inflammatory arthritis along with her abnormal serologies-positive anti-CCP of 53. Gives past history of psoriasis-no active lesions. Monitor closely for psoriatic arthritis and rheumatoid 2. History of psoriasis in 1999-no active lesions 3. Abnormal serologies-low positive anti-CCP at 53 and positive YOLI 1: 160 on recent blood work 4. Elevated inflammatory markers-CRP significantly elevated, ESR mildly elevated 5. Headache-cervicogenic headache?-Symptomatic 6. Left ear pain-May need ENT evaluation #7 osteopenia-T score -1.8 in the femoral neck on recent bone density February 2021-fracture risk low Plan Evaluate for psoriatic arthritis and rheumatoid Obtain x-ray SI joints Obtain cervical spine Obtain x-ray of the shoulders Check hepatitis panel Check arthritis panel including YOLI with reflex Recheck inflammatory markers-elevated in November 2021 Recommend using anti-inflammatories regularly as she primarily has axial symptoms and large joint involvement at this time-recommend ibuprofen up to 800 mg 3 times daily. She has had relief with ibuprofen once a day as needed. She prefers to hold off on prescription NSAIDs Old records extensively reviewed Continue vitamin D supplementation for osteopenia Follow-up in the last 6 weeks Office Visit on 04/09/22 XR SACROILIAC JOINTS 2V AP PELVIS/FERGUESON XR LUMBAR LIMITED 2V AP/LAT *Canceled* XR CERV GENERAL 2V AP/LAT XR SHOULDER GENERAL 3V OR MORE AP/TRUE AP/OTHER LEFT XR SHOULDER GENERAL 3V OR MORE AP/TRUE AP/OTHER RIGHT HEP B SURF AG SCRN HEP B SURF AB QUANT HEP C AB IA W/CONF SCRN HEP B CORE AB TOTAL C-REACTIVE PROTEIN (CRP) CCP ANTIBODY IGG ANTI-STREPTOLYSIN AB *Canceled* URIC ACID BLOOD RHEUMATOID FACTOR BL YOLI BY IFA WITH REFLEX SED RATE WESTERGREN CK CREATINE KINASE TSH BLD CBC + DIFF COMP METABOLIC PANEL URINALYSIS, WITH MICROSCOPIC Return in about 6 weeks (around 05/21/2022). 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 documented as of this encounter (statuses as of 04/10/2022) [facility] History of Past illness Narrative* Problem Noted Date Resolved Date Complex endometrial hyperplasia 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 1 07/09/2016 Other specified noninflammatory disorder of cerv ix 04/23/2010 07/09/2016 Hypertrophy of uterus 04/23/2010 07/09/2016 Irregular menstrual cycle 11/15/20082011 Metrorrhagia 11/15/2008 07/09/2016 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 documented as of this encounter (statuses as of 05/27/2022) [facility] History of Past illness Narrative* Problem Noted Date Resolved Date Complex endometrial hyperplasia 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 1 07/09/2016 Other specified noninflammatory disorder of cerv ix 04/23/2010 07/09/2016 Hypertrophy of uterus 04/23/2010 07/09/2016 Irregular menstrual cycle 11/15/20082011 Metrorrhagia 11/15/2008 07/09/2016 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 documented as of this encounter (statuses as of 05/28/2022) [facility] History of Past illness Narrative* Problem Noted Date Resolved Date Complex endometrial hyperplasia 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 1 07/09/2016 Other specified noninflammatory disorder of cerv ix 04/23/2010 07/09/2016 Hypertrophy of uterus 04/23/2010 07/09/2016 Irregular menstrual cycle 11/15/20082011 Metrorrhagia 11/15/2008 07/09/2016 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 documented as of this encounter (statuses as of 11/06/2022) [facility] History of Past illness Narrative* Problem Noted Date Resolved Date Complex endometrial hyperplasia 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 1 07/09/2016 Other specified noninflammatory disorder of cerv ix 04/23/2010 07/09/2016 Hypertrophy of uterus 04/23/2010 07/09/2016 Irregular menstrual cycle 11/15/20082011 Metrorrhagia 11/15/2008 07/09/2016 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 documented as of this encounter (statuses as of 11/27/2022) [facility] History of Past illness Narrative* Problem Noted Date Resolved Date Complex endometrial hyperplasia 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 1 07/09/2016 Other specified noninflammatory disorder of cerv ix 04/23/2010 07/09/2016 Hypertrophy of uterus 04/23/2010 07/09/2016 Irregular menstrual cycle 11/15/20082011 Metrorrhagia 11/15/2008 07/09/2016 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 documented as of this encounter (statuses as of 12/09/2022) [facility] History of Past illness Narrative* Problem Noted Date Resolved Date Complex endometrial hyperplasia 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 1 07/09/2016 Other specified noninflammatory disorder of cerv ix 04/23/2010 07/09/2016 Hypertrophy of uterus 04/23/2010 07/09/2016 Irregular menstrual cycle 11/15/20082011 Metrorrhagia 11/15/2008 07/09/2016 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 documented as of this encounter (statuses as of 12/31/2022) [facility] History of Past illness Narrative* Problem Noted Date Diagnosed Date Resolved Date Complex endometrial hyperpla edgar 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 08/13/2011 07/09/2016 Other specified noninflammat ory disorder of cervix 04/23/2010 07/09/2016 Hypertrophy of uterus 04/23/20102015 Irregular menstrual cycle 11/15/2008 Metrorrhagia 11/15/2008 07/09/2016 Other specified congenital anomaly of skin 01/07/2006 07/19/2014 documented as of this encounter (statuses as of 07/14/2023) [facility] History of Past illness Narrative* Problem Noted Date Diagnosed Date Resolved Date Complex endometrial hyperpla edgar 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 08/13/2011 07/09/2016 Other specified noninflammat ory disorder of cervix 04/23/2010 07/09/2016 Hypertrophy of uterus 04/23/20102015 Irregular menstrual cycle 11/15/2008 Metrorrhagia 11/15/2008 07/09/2016 Other specified congenital anomaly of skin 01/07/2006 07/19/2014 documented as of this encounter (statuses as of 12/03/2023) [facility] note* Diagnosis Cyclic citrullinated peptide (CCP) antibody positive- Primary Pain in joint, multiple sites CRP elevated Elevated C-reactive protein (CRP) Low back pain, unspecified back pain laterality, unspecified chronicity, unspecified whether sciatica present Osteopenia of multiple sites Psoriasis Other psoriasis Antinuclear antibody (YOLI) titer greater than 1:80 documented in this encounter [facility] note* Diagnosis Cyclic citrullinated peptide (CCP) antibody positive- Primary Pain in joint, multiple sites Low back pain, unspecified back pain laterality, unspecified chronicity, unspecified whether sciatica present Psoriasis Other psoriasis Osteopenia of multiple sites Psoriatic arthropathy (HCC) Psoriatic arthropathy documented in this encounter [facility] note* Diagnosis Psoriatic arthropathy (HCC)- Primary Psoriatic arthropathy Cyclic citrullinated peptide (CCP) antibody positive Pain in joint, multiple sites Low back pain, unspecified back pain laterality, unspecified chronicity, unspecified whether sciatica present Psoriasis Other psoriasis Osteopenia of multiple sites Antinuclear antibody (YOLI) titer greater than 1:80 documented in this encounter [facility] note* Diagnosis History of dimpling of breast skin documented in this encounter [facility] for referral (narrative)* Diagnostic Procedure Only (Routine) - Pending Review Specialty Diagnoses / Procedures Referred By Ariela torres Referred To Contact XR IMAGING Diagnoses Cyclic citrullinated peptide (CCP) antibody positive Pain in joint, multiple sites CRP elevated Low back pain, unspecified back pain laterality, unspecified chronicity, unspecified whether sciatica present Osteopenia of multiple sites Psoriasis Procedures XR SHOULDER GENERAL 3V OR MORE AP/TRUE AP/OTHER RIGHT RADEX SHOULDER COMPLETE MINIMUM 2 VIEWS Ricardo Jc MD [address] [facility] [address] [place] [address] Xr Imaging Referral ID Status Reason Start Date Expiration Date Visits Requested Visits Authorized [id number] Pending Review Auto-Generat ed Referral 04/09/2022 05/09/2023 1 1 * Diagnostic Procedure Only (Routine) - Pending Review Specialty Diagnoses / Procedures Referred By Contac t Referred To Contact XR IMAGING Diagnoses Cyclic citrullinated peptide (CCP) antibody positive Pain in joint, multiple sites CRP elevated Low back pain, unspecified back pain laterality, unspecified chronicity, unspecified whether sciatica present Osteopenia of multiple sites Psoriasis Procedures XR SHOULDER GENERAL 3V OR MORE AP/TRUE AP/OTHER LEFT RADEX SHOULDER COMPLETE MINIMUM 2 VIEWS Ricardo Jc MD [address] [address] Xr Imaging Referral ID Status Reason Start Date Expiration Date Visits Requested Visits Authorized [id number] Pending Review Auto-Generat ed Referral 04/09/2022 05/09/2023 1 1 * Diagnostic Procedure Only (Routine) - Pending Review Specialty Diagnoses / Procedures Referred By Contac t Referred To Contact XR IMAGING Diagnoses Cyclic citrullinated peptide (CCP) antibody positive Pain in joint, multiple sites CRP elevated Low back pain, unspecified back pain laterality, unspecified chronicity, unspecified whether sciatica present Osteopenia of multiple sites Psoriasis Procedures XR CERV GENERAL 2V AP/LAT RADEX SPINE CERVICAL 2 OR 3 VIEWS Ricardo Jc MD [address] [address] Xr Imaging Referral ID Status Reason Start Date Expiration Date Visits Requested Visits Authorized [id number] Pending Review Auto-Generat ed Referral 04/09/2022 05/09/2023 1 1 * Diagnostic Procedure Only (Routine) - Pending Review Specialty Diagnoses / Procedures Referred By Contac t Referred To Contact XR IMAGING Diagnoses Cyclic citrullinated peptide (CCP) antibody positive Pain in joint, multiple sites CRP elevated Low back pain, unspecified back pain laterality, unspecified chronicity, unspecified whether sciatica present Osteopenia of multiple sites Psoriasis Procedures XR SACROILIAC JOINTS 2V AP PELVIS/FERGUESON RADIOLOGIC EXAMINATION SACROILIAC JNTS <3 VIEWS Ricardo Jc MD [address] [place] [address] Xr Imaging Referral ID Status Reason Start Date Expiration Date Visits Requested Visits Authorized [id number] Pending Review Auto-Generat ed Referral 04/09/2022 05/09/2023 1 1 [facility] Summary Purpose Family History No Family History Records FoundNo Family History Records Found Advance Directives No Advanced Directives Records FoundNo Advanced Directives Records Found Additional Source Comments Source Comments (unrecognize d section and content) In the event this informatio n is protected by the Federal Confidentiality of Alcohol and Drug Abuse Patient Records regulations: The Federal rules restrict any use of the information to criminally investigate or prosecute any alcohol or drug abuse patient.[facility] the event this information is protected by the Federal Confidentiality of Alcohol and Drug Abuse Patient Records regulations: The Federal rules restrict any use of the information to criminally investigate or prosecute any alcohol or drug abuse patient.[facility] the event this information is protected by the Federal Confidentiality of Alcohol and Drug Abuse Patient Records regulations: The Federal rules restrict any use of the information to criminally investigate or prosecute any alcohol or drug abuse patient.[facility] the event this information is protected by the Federal Confidentiality of Alcohol and Drug Abuse Patient Records regulations: The Federal rules restrict any use of the information to criminally investigate or prosecute any alcohol or drug abuse patient.[facility] the event this information is protected by the Federal Confidentiality of Alcohol and Drug Abuse Patient Records regulations: The Federal rules restrict any use of the information to criminally investigate or prosecute any alcohol or drug abuse patient.[facility] the event this information is protected by the Federal Confidentiality of Alcohol and Drug Abuse Patient Records regulations: The Federal rules restrict any use of the information to criminally investigate or prosecute any alcohol or drug abuse patient.[facility] the event this information is protected by the Federal Confidentiality of Alcohol and Drug Abuse Patient Records regulations: The Federal rules restrict any use of the information to criminally investigate or prosecute any alcohol or drug abuse patient.[facility] the event this information is protected by the Federal Confidentiality of Alcohol and Drug Abuse Patient Records regulations: The Federal rules restrict any use of the information to criminally investigate or prosecute any alcohol or drug abuse patient.[facility] the event this information is protected by the Federal Confidentiality of Alcohol and Drug Abuse Patient Records regulations: The Federal rules restrict any use of the information to criminally investigate or prosecute any alcohol or drug abuse patient.[facility] the event this information is protected by the Federal Confidentiality of Alcohol and Drug Abuse Patient Records regulations: The Federal rules restrict any use of the information to criminally investigate or prosecute any alcohol or drug abuse patient.[facility] Reason for Visit (unrecogniz ed section and content) Reason Comments Joint Pain Reason Comments cyclic citrullinated peptide antibody po sitive Reason Comments Consult breast Specialty Diagnoses / Procedures Referred By Ariela t Referred To Contact General Surgery Diagnoses History of dimpling of breast skin Procedures CONSULT TO GENERAL SURGERY OFFICE/OUTPATIENT [facility] MDM 60-74 MINUTES Amrit Diaz APRN.CNM [address] [address] Referral ID Status Reason Start Date Expiration Date V isits Requested Visits Authorized [id number] Closed PCP Requested Referral 11/20/2022 11/20/2023 1 1 Care Teams (unrecognized sec tion and content) [facility] [employer] Relationship Specialty Start Date End Date Nadya Sloan MD [address] [place] [address] PCP - General Family Practice 08/21/18 [facility] [employer] Relationship Specialty Start Date End Date Nadya Sloan MD [address] [place] [address] PCP - General Family Practice 08/21/18 [facility] Relationship Specialty Start Date End Date Nadya Sloan MD [address] [place] [address] PCP - General Family Medicine 08/21/18 [facility] Relationship Specialty Start Date End Date Nadya Sloan MD [address] [place] [address] PCP - General Family Medicine 08/21/18 [facility] [employer] Relationship Specialty Start Date End Date Nadya Sloan MD [address] [place] [address] PCP - General Family Medicine 08/21/18 [facility] Relationship Specialty Start Date End Date Nadya Sloan MD [address] [place] [address] PCP - General Family Medicine 08/21/18 [employer] Relationship Specialty Start Date End Date Nadya Sloan MD [address] [place] [id number] PCP - General Family Medicine 08/21/18 INFORMATION SOURCE (unrecogn ized section and content) DATE CREATED AUTHOR AUTHOR'S ORGANIZ ATION 07/15/2023 [facility] FOR RECORDS PERTAINING TO PATIENTS WHO ARE OR HAVE BEEN ENROLLED IN A CHEMICAL DEPENDENCY/SUBSTANCEABUSE PROGRAM, SOME INFORMATION MAY BE OMITTED. This clinical summary was aggregated from multiple sources. Caution should be exercised in using it in the provision of clinical care. This summary normalizes information from multiple sources, and as a consequence, information in this document may materially change the coding, format and clinical context of patient data. In addition, data may be omitted in some cases. CLINICAL DECISIONS SHOULD BE BASED ON THE PRIMARY CLINICAL RECORDS. [employer] [facility] provides no warranty or guarantee of the accuracy or completeness of information in this document.
== END | disposition home or self-care (01) ==
PROVIDERS: PCP Nurse Practitioner Family; Referring Provider Family Medicine; Visit Provider Obstetrics & Gynecology
DX: Z12.31 Encounter for screening mammogram for malignant neoplasm of breast (principal)
CPT/HCPCS: 77063; 77067

== ENCOUNTER → 2024-01-12 | Outpatient (CLI) | payer BC, SELFPAY ==
--- NOTE | 2024-01-12 10:57 | US_ITS ---
STUDY: ULTRASOUND BREAST - RIGHT REASON FOR EXAM: Female, 58 years old. Abnormal screening mammogram. TECHNIQUE: Axial and longitudinal images of the RIGHT breast were performed with a high resolution ultrasound transducer. # OF IMAGES: 37 COMPARISON: Abnormal screening mammogram. FINDINGS: RIGHT Breast: The upper outer quadrant of the right breast was examined with ultrasound. Dense fibroglandular tissue. No focal abnormality is seen. US/Breast Limited Unilateral IMPRESSION: The upper outer quadrant was examined with ultrasound. No sonographic abnormality is seen. ASSESSMENT CATEGORY: No sonographic abnormality is seen. Electronically Signed: Ricky Mares MD at 15:19 EDT ,
== END | disposition home or self-care (01) ==
LOC: OPUS 10:56
PROVIDERS: PCP Nurse Practitioner Family; Referring Provider Nurse Practitioner Family; Visit Provider Nurse Practitioner Family
DX: R92.8 Other abnormal and inconclusive findings on diagnostic imaging of breast (principal)
CPT/HCPCS: 76642

== ENCOUNTER → 2024-08-04 | Outpatient (CLI) | payer BC, SELFPAY ==
[2024-08-04 11:27] LABS: Vitamin B12 460 pg/mL (211-911); Vitamin D,25 Hydroxy 60.8 ng/mL
[2024-08-04 11:41] LABS: T4 Free Direct 0.82 ng/dL (0.76-1.46)
== END | disposition home or self-care (01) ==
LOC: LAB 10:11
PROVIDERS: PCP Nurse Practitioner Family; Referring Provider Nurse Practitioner Family; Visit Provider Nurse Practitioner Family
DX: R53.83 Other fatigue (principal)
CPT/HCPCS: 36415; 82306; 82607; 84439; 84443

== ENCOUNTER 2024-09-27 07:21 | Day surgery (SDC) | payer BC, SELFPAY ==
[2024-09-27] VITALS (8 sets, daily range): BP systolic 101–130; BP diastolic 42–78; PULSE 61–78; RESP 16; TEMP 36.4–36.7; O2SAT 95–97; BMI 24.2
--- NOTE | 2024-09-27 07:50 | PRE.ANES_ITS ---
ASA Classification* ASA Classification ASA Classification: 2 Assessment & Plan Anesthesia* Anesthesia Assessment Anesthesia Assessment: Discussed sedation and/or anesthesia options, risks, benefits, and alternatives with patient/parents/legal guardian/POA. Questions invited. The patient/parents/legal guardian/POA seems to understand and agrees to proceed with anesthesia plan. Reviewed the physical assessment, medical history, allergy history and patient home medications list prior to surgery/procedure/anesthetic and documented any changes. Performed airway and anesthesia risk assessments. Anesthesia Type Anesthesia Type: MAC History Source History Obtained from:: Patient and Chart Anesthesia Focused Assessment* Temperature: 97.8 F Pulse Rate: 66 Blood Pressure: 130/73 Respiratory Rate: 16 Pulse Ox: 95 Oxygen Delivery Method: Room Air Airway Assessment Mouth opens: >3 cm Mallampati Score: II Teeth Condition: Caps/Crowns (Patient has a cap on the #9 incisor. It is tight.) Neck Range of motion (ROM): Limited ROM (Slight decrease in extension) Focused Labs Anesthesia Preop lab: CBC WBC 4.8 K/mm3 (4.4-11.0) 08/04/24 10:16 RBC 4.51 M/mm3 (4.2-5.4) 08/04/24 10:16 Hgb 13.7 g/dL (12.0-15.0) 08/04/24 10:16 Hct 42.0 % (37-47) 08/04/24 10:16 Plt Count 278 K/mm3 (150-450) 08/04/24 10:16 CHEMISTRY Potassium 4.1 mmol/L (3.5-5.1) 08/04/24 10:16 Sodium 137 mmol/L (136-145) 08/04/24 10:16 Phosphorus 2.8 mg/dL (2.5-4.9) 08/04/24 10:16 BUN 13 mg/dL (7-18) 08/04/24 10:16 Creatinine 0.70 mg/dL (0.55-1.02) 08/04/24 10:16 Glucose 98 mg/dL (74-106) 08/04/24 10:16 TSH 2.350 uIU/mL (0.358-3.740) 08/04/24 10:16 COAG Pre-Assessment Diagnosis/Proposed Procedure Planned Operative Procedure(s): CSCOPE OA Anesthesia History 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 When Was Last Pacemaker Check QUESTION #4 FULL TEXT: You/Your Family Experience fever (hyperthermia) with Anesthesia Last Oral Intake Last Oral intake: Last Oral Intake NPO since Meds taken in AM with sips of water? Meds patient instructed to take am of surgery Any additional information?: Yes NPO since: 05:00 (Patient finished prep at 5:00 AM.) PONV PONV - custodial operations manager: PONV - custodial operations manager Female Yes 09/22/24 11:02 HX of Motion Sickness No 09/22/24 11:02 HX of N/V After Surgery No 09/22/24 11:02 Non-Smoker Yes 09/22/24 11:02 Duration of Surgery greater No 09/22/24 11:02 than 60 minutes Number of Risk Factors 2 09/22/24 11:02 PONV Score Moderate Risk 09/22/24 11:02 Height & Weight Height & Weight: Anesthesia: Height & Weight Height 5 ft 4 in 09/27/24 07:39 Weight: 64 kg 09/27/24 07:39 Body Mass Index (BMI) 24.2 09/27/24 07:39 Respiratory Assessment Respiratory Assessment - custodial operations manager: Respiratory Tract Infection Hx - custodial operations manager Hx Respiratory Tract Infection No 09/22/24 11:02 STOP Sleep Apnea STOP Sleep Apnea - custodial operations manager: STOP Sleep Apnea - custodial operations manager Hx Hypertension No 09/22/24 11:02 Hx Sleep Apnea No 09/22/24 11:02 CPAP No 02/18/21 11:14 BIPAP No 02/18/21 11:14 Do you snore loudly (louder Yes 09/22/24 11:02 than talking or can be heard Do you often feel tired/ No 09/22/24 11:02 fatigued/ sleepy during daytime? Has anyone observed you stop No 09/22/24 11:02 breathing during sleep? STOP Results Negative 09/22/24 11:02 QUESTION #5 FULL TEXT : Do you snore loudly (louder than talking or can be heard through closed doors)? 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 Specify any problems Hx of Preganancy in last 3 No 09/22/24 11:02 Months Nurse Filling Out Transfusion DSCHRIBER 09/22/24 11:02 & Questions: Date: 09/22/24 09/22/24 11:02 Time: 11:03 09/22/24 11:02 Patient unable to answer at this time (ie. confused, unrespo /Reproduction History /Reproductive History - custodial operations manager: /Reproductive Hx- custodial operations manager Hx Now No 09/22/24 11:02 Gestational Age (in weeks): EDC: Hx Hx Para Hx Section SAB No 09/22/24 11:02 PFSH Medical History Post-menopausal Wears glasses Cancer Anxiety Alcohol use Psoriasiform eczema Polyarticular arthritis Back pain Osteopenia Injury of head and neck Non-smoker History of pain when walking History of echocardiogram History of irregular heartbeat Hx of breast lump Home Medications ?Medication ?Instructions ?Recorded ?Last Taken ?Type multivitamin with folic acid 400 1 tab PO DAILY 01/12/14 Unknown History mcg tablet calcium carbonate (Calcium 500) 500 mg PO BID 12/02/17 Unknown History betamethasone dipropionate 0.05 % 1 applic topical DAILY PRN skin 06/03/24 Unknown History topical cream irritation clobetasol 0.05 % topical ointment 1 applic topical DAILY PRN SKIN 06/03/24 Unknown History escitalopram oxalate 20 mg tablet 10 mg PO DAILY 06/03/24 09/27/24 History (Lexapro) Allergy/AdvReac Type Severity Reaction Status Date / Time Environmental Allergies: Allergy Rash Verified 09/27/24 07:39 Uncoded lanolin Allergy Rash Verified 09/27/24 07:39 latex Allergy Rash Verified 09/27/24 07:39 perfume Allergy Itching Verified 09/27/24 07:39 erythromycin base AdvReac Vomiting Verified 09/27/24 07:39 (Erythromycin Base) Penicillins AdvReac PT UNSURE Verified 09/27/24 07:39 OF REACTION Family History Brother Colon polyps Other Diabetes Hypertension MVP (mitral valve prolapse) Surgical History Hx of rectal sphincterotomy Hx of dilation and curettage History of bunionectomy of right great toe Hx of colonoscopy Hx of section Social History household members: spouse current occupational status: employed current occupation: [employer] Smoking Status: Never smoker alcohol intake: current alcohol intake frequency: 0-2 drinks per day Alcohol type: beer substance use type: does not use Review of Systems (Anesthesia) ROS Narrative System reviewed and no additional complaints, except as documented.
--- NOTE | 2024-09-27 07:51 | H&P.OPEN ---
HPI - General General Date of Service: 09/27/24 HPI Narrative LEXIS ZAVALA, is a 59 F who presents for a screening colonoscopy. Patient last colonoscopy was in [address] Aponte negative per patient. Patient denies any family history of colon cancer, patient's brother did have polyps unsure of the size. Patient has bowel movements daily denies any blood. Patient denies any chronic abdominal pain/nausea/vomiting/reflux. [facility] Medical History (Updated 09/22/24 @ 11:11 by Mya Bhakta) Post-menopausal Wears glasses Cancer Anxiety Alcohol use Psoriasiform eczema Polyarticular arthritis Back pain Osteopenia Injury of head and neck Non-smoker History of pain when walking History of echocardiogram History of irregular heartbeat Hx of breast lump Home Medications ?Medication ?Instructions ?Recorded ?Last Taken ?Type multivitamin with folic acid 400 1 tab PO DAILY 01/12/14 Unknown History mcg tablet calcium carbonate (Calcium 500) 500 mg PO BID 12/02/17 Unknown History betamethasone dipropionate 0.05 % 1 applic topical DAILY PRN skin 06/03/24 Unknown History topical cream irritation clobetasol 0.05 % topical ointment 1 applic topical DAILY PRN SKIN 06/03/24 Unknown History escitalopram oxalate 20 mg tablet 10 mg PO DAILY 06/03/24 Unknown History (Lexapro) Allergy/AdvReac Type Severity Reaction Status Date / Time Environmental Allergies: Allergy Rash Verified 09/27/24 07:39 Uncoded lanolin Allergy Rash Verified 09/27/24 07:39 latex Allergy Rash Verified 09/27/24 07:39 perfume Allergy Itching Verified 09/27/24 07:39 erythromycin base AdvReac Vomiting Verified 09/27/24 07:39 (Erythromycin Base) Penicillins AdvReac PT UNSURE Verified 09/27/24 07:39 OF REACTION Family History (Updated 06/03/24 @ 08:53 by Meghann Blackwood) Brother Colon polyps Other Diabetes Hypertension MVP (mitral valve prolapse) Surgical History (Updated 09/22/24 @ 11:11 by Mya Bhakta) Hx of rectal sphincterotomy Hx of dilation and curettage History of bunionectomy of right great toe Hx of colonoscopy Hx of section Social History (Updated 06/03/24 @ 08:54 by Meghann Blackwood) household members: spouse current occupational status: employed current occupation: [employer] Smoking Status: Never smoker alcohol intake: current alcohol intake frequency: 0-2 drinks per day Alcohol type: beer substance use type: does not use Past Medical/Surgical History Planned Operation Planned Operative Procedure(s): CSCOPE OA S.O.S: No Previous Hospitalizations/Surgeries HX Hospitalizations: No HX of Surgeries: C SECT 97 FISSUROTOMY 96 BUNION RIGHT 77 RHINOPLASTY 81 D AND C 98 VAG DEL 00 Any Problems With Anesthesia: No You/Your Family Experience Fever (Hyperthermia) With Anes: No Cholinesterase deficiency: No Cardiovascular Hx Chest Pain within Last 2 months: No Hx of Irregular Heartbeat and/or Afib: No Hx Heart Attack: No Hx Congestive Heart Failure: No Hx Rheumatic Fever: No Hx Hypertension: No Hx Internal Defibrillator: No Hx Pacemaker: No Hx Cardiac Catheterization: No Hx Cardiac Surgery/Stents/Etc.: No Hx Stress Test: Yes (ECHO D/T PALPS 01/02- NO PROBLEMS FOUND) Hx Pain in Legs when Walking/Leg Cramps: No Respiratory Chronic Cough: No HX of Shortness of Breath: No Hoarseness: No Hx Chronic Obstructive Pulmonary Disease (COPD): No Hx Asthma: No Hx Emphysema: No Hx Sleep Apnea: No CPAP: No BIPAP: No Hx Respiratory Tract Infection/Cold (presently): No Do You Snore Loudly (louder than talking or can be heard): Yes Do You Often Feel Tired/ Fatigued/ Sleepy Dring Daytime?: No Has Anyone Observed You Stop Breathing During Sleep?: No Result (for STOP score): Negative Hx Smoking: No Smoking Status: Never smoker Gastrointestinal Hx Gastrointestinal Disorders: No Hx Gastrointestinal Bleed: No Hx Ulcer: No Hx Hiatal Hernia: No Difficulty Chewing/Swallowing: No Special diet followed at home: No Hx Unplanned Weight Loss of 20#: No HX Unplanned Weight Gain of 20#: No Neurological Hx Seizures: No HX Syncope/Blackout Spells/Unconsciousness: No Hx Transient Ischemic Attacks (TIA): No Hx Multiple Sclerosis: No Hx Parkinson's Disease: No Hx Head/Neck Injury: Yes (NECK DISC BULGING 2009) Hx Headaches: No Hx Back Injury/Pain: No Recent Onset of Speech Difficulty: No Restless Legs: No Does patient have nerve stimulator: No Blood Disorder Hx Leukemia: No Bleeding Tendencies: No Hx Deep Vein Thrombosis: No Hx High Cholesterol: No Blood Transmitted Disease: No Hx Hepatitis: No Hx Cirrhosis: No Hx Anemia: No Hx Blood Disorders: No Reproduction : No Is Patient Lactating: No Hx Hysterectomy: No Hx Tubal Ligation: No Are You Post Menopause: Yes Genitourinary Hx Renal Disease: No Musculoskeletal Hx Arthritis: No Hx Rheumatoid Arthritis: No Hx Gout: No Recent Onset of an Orthopedic Problem: No Endocrine Hx Diabetes: No Thyroid Disease: No Hx Steroid Therapy: No Psycho/Social Hx Substance Use: No Hx Alcohol Use: Yes (BEER 1-2) Hx Anxiety: Yes (ON MEDS) Hx Depression: No Mental Illness: No Hx Dementia: No Miscellaneous Hx Cancer: No Recent Exposure to Contagious Disease: No Hx of C-Diff: No Any Loose Teeth: No Allergies Environmental Allergies: Uncoded Allergy (Verified 09/27/24 07:39) Rash para-tert butylphenol lanolin Allergy (Verified 09/27/24 07:39) Rash latex Allergy (Verified 09/27/24 07:39) Rash perfume Allergy (Verified 09/27/24 07:39) Itching erythromycin base (Erythromycin Base) Adverse Reaction (Verified 09/27/24 07:39) Vomiting Penicillins Adverse Reaction (Verified 09/27/24 07:39) PT UNSURE OF REACTION Discharge Is Pt Admitted From a Detention, or a Jail: No After D/C, Where Do you Plan to Go: Return Home Vital Signs Vital Signs Vital Signs: 09/27/24 07:39 09/27/24 07:39 Temperature 97.8 F Temperature Source Temporal Pulse Rate 66 Respiratory Rate 16 Respiratory Pattern Normal Blood Pressure 130/73 H Blood Pressure Mean 92 Blood Pressure Source Monitor Blood Pressure Position Semi-Fowlers Blood Pressure Location Right Arm Pulse Ox 95 Oxygen Delivery Method Room Air Weight Weight: 141 lb 1.533 oz Body Mass Index (BMI) 24.2 Physical Exam Const alert, oriented x3 and no apparent distress HEENT normocephalic and head/scalp atraumatic Resp normal respiratory effort Cardio regular rate GI soft to palpation and non-tender; Negative for non-distended Palpation: Negative for guarding Extremity no clubbing, cyanosis or edema Skin no rashes or lesions noted Neuro CN's II-XII intact bilaterally Psych mental status grossly normal Assessment & Plan Assessment/Plan (1) Encounter for screening for malignant neoplasm of colon: Surgery Risks - Colonoscopy I discussed with the patient the risks of the procedure: Yes Risks Include but are not Limited To: Risks include but are not limited to: Bleeding, perforation requiring further surgery, inability to complete colonoscopy requiring barium enema.
--- NOTE | 2024-09-27 09:00 | COLBX_PTH ---
PATIENT: LEXIS ZAVALA LOC: EN U#:[id number] AGE/SX: 59/F ROOM: RE09/27/[address]: Dr. Shahrzad Carlos MD : 1965 BED: DIS: 09/27/2024 SPEC #: [id number] RECD: 09/27/24 10:55 STATUS: SUSANA RENY #: [id number] ANN: 09/27/24 09:[address]: Shahrzad Carlos DEPT: SURGICAL PATHOLOGY RECD BY: Polo Romero ENTERED: 09/27/24 11:31 SP TYPE: COLON BX OTHR DR: Simi Coronado, PT SITTER-C Tissues: Rectum, NOS Procedures: Surgery Specimen Level IV HEADER OPERATION: Colonoscopy biopsy PRE-OP DIAGNOSIS: Encounter for screening for malignant neoplasm of colon TISSUE SUBMITTED: Rectal polyp biopsy MICROSCOPIC DIAGNOSIS Rectal polyp, biopsy: Tubular adenoma. Fragments of hyperplastic colonic mucosa. AM. 09/28/2024 MICROSCOPIC DESCRIPTION Slides are reviewed. GROSS DESCRIPTION Received in fixative is one container labeled with the patient's name and designated Rectal polyp biopsy. The specimen consists of two irregular fragments of light knutson soft tissue that in aggregate measure 0.5 x 0.5 x 0.1 cm. The specimen is totally submitted in one cassette. 09/27/2024 TC:5 CPT:22305
--- NOTE | 2024-09-27 09:16 | OP.CCLET_ITS ---
09/27/2024 Gabriel Prince Re : Colonoscopy procedure for Suni Pearsonr Cliff This procedure was performed on Friday, September 27, 2024. My impressions and recommendations are as follows: Impressions : - Two less than 5 mm polyps in the rectum, removed with a cold biopsy forceps. Resected and retrieved. - The examination was otherwise normal on direct and retroflexion views. Recommendations : - Discharge patient to home. - Resume previous diet. - Continue present medications. - Await pathology results. - Repeat colonoscopy in 5-10 years for surveillance based on pathology results. My findings are described in the full procedure note, which is enclosed. If I can be of further assistance, please feel free to contact me at Doctor phone number(s): , Work: . Sincerely, MD Shahrzad Thomas MD 09/27/2024 9:16:18 AM This report has been signed electronically.
--- NOTE | 2024-09-27 09:16 | OP.COLON_ITS ---
Patient Name: Suni Wilson Procedure Date: 09/27/2024 8:49 AM Date of : 1965 Age: 59 Procedure: Colonoscopy Indications: Screening for colorectal malignant neoplasm Providers: Shahrzad Carlos MD Referring MD: Gabriel Prince Medicines: Monitored Anesthesia Care Patient Profile: This is a 59 year old female. Last Colonoscopy: 10 years ago. Complications: No immediate complications. Procedure: Pre-Anesthesia Assessment: - Prior to the procedure, a History and Physical was performed, and patient medications and allergies were reviewed. The patient's tolerance of previous anesthesia was also reviewed. The risks and benefits of the procedure and the sedation options and risks were discussed with the patient. All questions were answered, and informed consent was obtained. Prior Anticoagulants: The patient has taken no anticoagulant or antiplatelet agents except for aspirin. ASA Grade Assessment: Per anesthesia. After reviewing the risks and benefits, the patient was deemed in satisfactory condition to undergo the procedure. After I obtained informed consent, the scope was passed under direct vision. Throughout the procedure, the patient's blood pressure, pulse, and oxygen saturations were monitored continuously. The Colonoscope was introduced through the anus and advanced to the cecum, identified by appendiceal orifice and ileocecal valve. The colonoscopy was performed without difficulty. The patient tolerated the procedure well. The quality of the bowel preparation was good. Scope In: 8:57:10 AM Scope Withdrawal Time 0 hours 8 minutes 44 seconds Scope Out: 9:10:34 AM Total Procedure Duration Time 0 hours 13 minutes 24 seconds Findings: The perianal and digital rectal examinations were normal. Two sessile polyps were found in the rectum. The polyps were less than 5 mm in size. These polyps were removed with a cold biopsy forceps. Resection and retrieval were complete. The exam was otherwise without abnormality on direct and retroflexion views. Impression: - Two less than 5 mm polyps in the rectum, removed with a cold biopsy forceps. Resected and retrieved. - The examination was otherwise normal on direct and retroflexion views. Recommendation: - Discharge patient to home. - Resume previous diet. - Continue present medications. - Await pathology results. - Repeat colonoscopy in 5-10 years for surveillance based on pathology results. Procedure Code(s): --- Professional --- 39915, PT, Colonoscopy, flexible; with biopsy, single or multiple Diagnosis Code(s): --- Professional --- Z12.11, Encounter for screening for malignant neoplasm of colon D12.8, Benign neoplasm of rectum CPT copyright 2021 [employer]. All rights reserved. The codes documented in this report are preliminary and upon sec reporting consultant review may be revised to meet current compliance requirements. MD Shahrzad Thomas MD 09/27/2024 9:16:18 AM This report has been signed electronically. Number of Addenda: 0 Note Initiated On: 09/27/2024 8:49 AM
--- NOTE | 2024-09-27 09:18 | PCM.POST.ANE ---
Anesthesia: Postop Eval I Current Vital Signs Temperature: 98.1 F Pulse Rate: 78 Blood Pressure: 101/42 Respiratory Rate: 16 Pulse Ox: 96 Oxygen Delivery Method: Room Air Assessment Airway patent: Yes Spontaneous unlabored respirations: Yes Mental status: Awake nausea: No Vomiting: No Anesthesia Complication: No Fluid Hydration Crystalloid volume administer (ml): 40 Total IV fluid infused: 40 Progress Note Anesthesia document: Postop Eval 1 completed: Yes
--- NOTE | 2024-09-27 09:24 | PCM.POSTANE2 ---
Anesthesia Postop Eval I Sum Postop Eval Completion status Anesthesia document: Postop Eval 1 completed: Yes Anesthesia Postop Eval I Summary Anesthesia Postop Eval I Summary: Anesthesia Postop Eval I: Assessment Summary Airway patent Yes 09/27/24 09:19 [email or web address] Spontaneous unlabored Yes 09/27/24 09:19 [email or web address] respirations Mental status Awake 09/27/24 09:19 [email or web address] nausea No 09/27/24 09:19 [email or web address] Vomiting No 09/27/24 09:19 [email or web address] Anesthesia Postop Eval I: Fluid Summary Crystalloid volume administer 40 09/27/24 09:19 [email or web address] (ml) Colloids volume administered ( ml) Blood Product volume administered (ml) Total IV fluid infused 40 09/27/24 09:19 [email or web address] Anesthesia Postop Eval I: Summary Notes Anesthesia Complication No 09/27/24 09:19 [email or web address] Anesthesia Complication Comment: Post-operative progress note Anesthesia: Postop Eval II Evaluation Mental status: Awake Pain Level: 0 nausea: No Vomiting: No
== END 2024-09-27 10:02 | disposition home or self-care (01) ==
LOC: EN 07:23 → AC 07:24
PROVIDERS: PCP Nurse Practitioner Family; Referring Provider Nurse Practitioner Family; Visit Provider Surgery
PROC: 0DJD8ZZ Inspection of Lower Intestinal Tract, Via Natural or Artificial Opening Endoscopic (ICD-10-PCS; CPT 45378; principal; 2024-09-27 08:55)
DX: Z12.11 Encounter for screening for malignant neoplasm of colon (principal); D12.8 Benign neoplasm of rectum; F41.9 Anxiety disorder, unspecified; Z79.899 Other long term (current) drug therapy
CPT/HCPCS: 45380; 88305; J2405

== ENCOUNTER → 2025-04-11 | Outpatient (CLI) | payer BC, SELFPAY ==
--- NOTE | 2025-04-11 15:26 | BI_ITS ---
EXAM: SCRN MAMM (CAD)W/AGNES BILAT DATE: 04/11/2025 CLINICAL HISTORY: F, Age 59 y/o , SCREENING No family history. History of prior left stereotactic breast biopsies. BREAST CANCER RISK ASSESSMENT: Not assessed. TECHNIQUE: Bilateral screening digital breast tomosynthesis with 2D and 3D images. Computer aided detection. COMPARISON: Prior exam(s) dated January 08, 2024.. FINDINGS: TISSUE DENSITY: The breast tissue is extremely dense which lowers the sensitivity of mammography. Bilateral Breast Mammographic Findings: No significant masses, calcifications or other abnormalities are identified. Stable asymmetry of breast tissue were more breast tissue is seen in the upper-outer quadrant of the right breast as compared to the left side. Prior sonogram demonstrated this to be dense fibroglandular tissue. No suspicious masses, areas of developing architectural distortion, or suspicious calcifications. There has been no significant interval change. BI/SCRN MAMM (CAD)W/AGNES BILAT IMPRESSION: Stable examination. OVERALL FINAL ASSESSMENT BI-RADS 2: BENIGN RECOMMEND ANNUAL MAMMOGRAPHIC SCREENING. RECOMMENDATION: Routine annual follow-up in 1 Year A letter with findings and recommendations will be mailed to the patient. Reading Location: [place] [id number]
== END | disposition home or self-care (01) ==
PROVIDERS: PCP Nurse Practitioner Family; Referring Provider Nurse Practitioner Family; Visit Provider Nurse Practitioner Family
DX: Z12.31 Encounter for screening mammogram for malignant neoplasm of breast (principal)
CPT/HCPCS: 77063; 77067

== ENCOUNTER 2025-06-16 09:39 | Emergency (ER) | payer BC, SELFPAY ==
[2025-06-16] VITALS (7 sets, daily range): BP systolic 128–151; BP diastolic 62–87; PULSE 59–82; RESP 14–19; TEMP 36.7–37.1; O2SAT 98–100; BMI 26.4
--- NOTE | 2025-06-16 10:09 | ED.VIS.CHEST ---
HPI History of Present Illness Chief Complaint: Chest Pain Informant: patient Onset/Context/Timing Onset: Today Activity at onset: sudden Timing: Continuous Quality: Positive for Tightness Location: Substernal, Right Parasternal, Left Parasternal, Right Chest and Left Chest Worsened By: Nothing Relieved By: Nothing Associated Symptoms: Positive for Acid Reflux; Negative for Nausea, Vomiting, Diaphoresis, Dyspnea, Cough, Fever, Lightheadedness or Palpitations Narrative Narrative: Patient presents with chest pain that began today. Patient describes it as a tightness. Patient states it feels like there is a band around her chest. Patient states nothing makes it worse and nothing makes it better. Patient states her pain began rather suddenly. Patient states it has been constant for the past couple hours. Patient states she felt like she had a catch in her throat. Patient states she had a similar symptoms with palpitations in the past. Patient denies any palpitations today. CVD Risk Factors: Negative for Hypertension, Diabetes, Hypercholesterolemia, Family History 1' </=55 or Smoking PE Risk Factors: Positive for Cancer; Negative for Recent Travel/Surgery, Recent Immobilization, Prior DVT or PE or OCP + Smoking + >/=35 PFSH [facility] Medical History Hyperlipidemia Basal cell carcinoma Rosacea Psoriasis Post-menopausal Wears glasses Cancer Anxiety Alcohol use Psoriasiform eczema Polyarticular arthritis Back pain Osteopenia Injury of head and neck Non-smoker History of pain when walking History of echocardiogram History of irregular heartbeat Hx of breast lump Home Medications ?Medication ?Instructions ?Recorded ?Last Taken ?Type multivitamin with folic acid 400 1 tab PO DAILY 01/12/14 Unknown History mcg tablet calcium carbonate (Calcium 500) 500 mg PO BID 12/02/17 Unknown History betamethasone dipropionate 0.05 % 1 applic topical DAILY PRN skin 06/03/24 Unknown History topical cream irritation clobetasol 0.05 % topical ointment 1 applic topical DAILY PRN SKIN 06/03/24 Unknown History cholecalciferol (vitamin D3) 25 25 mcg PO QDAY 04/18/25 Unknown History mcg (1,000 unit) capsule estradiol 0.025 mg/24 hr 1 patch transdermal 2XW #8 ea 04/18/25 Unknown Rx semiweekly transdermal patch (Vivelle-Dot) medroxyprogesterone 2.5 mg tablet 2.5 mg PO QDAY #90 tabs 04/18/25 Unknown Rx Allergy/AdvReac Type Severity Reaction Status Date / Time formaldehyde Allergy Intermediate Rash Verified 06/16/25 09:42 Environmental Allergies: Allergy Rash Verified 06/16/25 09:42 Uncoded lanolin Allergy Rash Verified 06/16/25 09:42 latex Allergy Rash Verified 06/16/25 09:42 perfume Allergy Itching Verified 06/16/25 09:42 erythromycin base AdvReac Vomiting Verified 06/16/25 09:42 (Erythromycin Base) Penicillins AdvReac PT UNSURE Verified 06/16/25 09:42 OF REACTION Family History Brother Colon polyps Grandmother Arthritis Mother Anemia Hypertension High cholesterol CVA (cerebral vascular accident) Thyroid disorder Osteoporosis Father Arthritis Skin cancer Diabetes High cholesterol CVA (cerebral vascular accident) Sister Thyroid disorder Surgical History S/P breast biopsy S/P rhinoplasty Hx of rectal sphincterotomy Hx of dilation and curettage History of bunionectomy of right great toe Hx of colonoscopy Hx of section Social History household members: spouse current occupational status: employed current occupation: [employer] Smoking Status: Never smoker alcohol intake: current alcohol intake frequency: 3 or more drinks per day Alcohol type: beer details: 7-14 craft beers a week substance use type: does not use caffeine: Yes what type of physical activity do you participate in: bicycling, aerobics and weight training frequency: daily additional social history: - Jasbir ROS ROS ED Constitutional Constitutional ED: Denies chills or fever(s) Eyes Eyes: Denies blurry vision or change in vision ENT ENT ED: Denies rhinorrhea or sore throat Cardiovascular Cardiovascular: Reports chest pain; Denies palpitations Respiratory/Chest Respiratory/Chest: Denies cough or dyspnea Gastrointestinal Gastrointestinal: Denies nausea or vomiting Genitourinary Genitourinary ED: Denies dysuria or hematuria Musculoskeletal Musculoskeletal: Denies back pain or neck pain Integumentary Denies abscess or rash Neurologic Neurologic: Reports headache(s); Denies weakness Allergic/Immunologic Allergic/Immunologic ED: Denies mouth swelling or urticaria EXAM Physical Exam Const Vital Signs: 06/16/25 09:39 06/16/25 10:22 06/16/25 10:31 Temperature 98.0 F Temperature Source Oral Pulse Rate 82 68 Respiratory Rate 19 H Blood Pressure 151/87 H 151/69 H Blood Pressure Mean 108 Pulse Ox 100 Oxygen Delivery Method Room Air Room Air 06/16/25 10:39 06/16/25 11:00 06/16/25 12:00 Temperature Temperature Source Pulse Rate 78 78 61 Respiratory Rate 16 14 17 Blood Pressure 139/72 H 132/66 H 128/62 H Blood Pressure Mean 94 88 84 Pulse Ox 98 98 99 Oxygen Delivery Method Room Air Room Air Room Air Positive well nourished and well developed General Appearance ED: well developed and NAD HEENT Reports moist mucous membranes Neck supple and no JVD Resp normal respiratory effort and clear to auscultation bilaterally Cardio regular rate and regular rhythm GI soft to palpation, non-tender and non-distended Extremity normal to inspection General Extremety ED: Negative for edema or tenderness General Extremity: Negative for edema Neuro oriented x3, CN's II-XII intact bilaterally and no sensory deficits noted Sensorium / Orientation: awake and alert Motor Exam: strength 5/5 throughout Psych mental status grossly normal Heart Score History: Slightly/Non-Suspicious ECG: Nonspecific Repolarization Age: >45 - <65 years Risk Factors: No Risk Factors Troponin: </= Normal Limit Score: 2 MDM MDM MDM Narrative Medical decision making narrative: Differential diagnosis includes cardiac dysrhythmia, cardiac ischemia, pneumonia, bronchitis, pulmonary embolism, gastroesophageal reflux disease, and anxiety. EKG will be obtained to assess for cardiac dysrhythmia and cardiac ischemia. Chest x-ray will be obtained to assess for pneumonia and bronchitis. CBC will be obtained to assess for leukocytosis and anemia. Basic metabolic profile will be obtained to assess for electrolyte abnormality and renal function. High-sensitivity troponin will be obtained to assess for cardiac ischemia. 2-hour repeat high-sensitivity troponin will be obtained to assess for ongoing cardiac ischemia. D-dimer will be obtained to assess for pulmonary embolism. Lab Data Attestation: I reviewed the patient's lab results. Lab results narrative: CBC was reviewed and was within normal limits. Basic metabolic profile was reviewed and was within normal limits. Initial high-sensitivity troponin was reviewed and was normal at 6. D-dimer was reviewed and was normal at less than 0.27. 2-hour repeat high-sensitivity troponin was reviewed and was 6. Labs: Laboratory Results - last 24 hr 06/16/25 06/16/25 09:50 12:03 WBC 7.1 RBC 4.45 Hgb 13.8 Hct 40.5 MCV 91.0 MCH 31.0 MCHC 34.1 RDW Std Deviation 45.4 H RDW Coeff of Joshua 13.4 Plt Count 317 MPV 9.6 Immature Gran % (Auto) 0.400 Neut % (Auto) 67.0 Lymph % (Auto) 19.9 [place] % (Auto) 9.7 Eos % (Auto) 2.2 Baso % (Auto) 0.8 Absolute Neuts (auto) 4.8 Absolute Lymphs (auto) 1.42 Nucleated RBC % 0 D-Dimer Quant (PE/DVT) < 0.27 L Sodium 139 Potassium 4.1 Chloride 102 Carbon Dioxide 25.5 Anion Gap 12 BUN 11 Creatinine 0.80 Estim Creat Clear Calc 70.86 Est GFR (MDRD) Non-Af 84 BUN/Creatinine Ratio 13.2 Glucose 102 H Calcium 9.5 Troponin T High Sens 6 Troponin T Hi Sens 2 Hr 6 Radiography Chest X-Ray - ED: 1 View, Read by ED Physician, Read by Radiologist and No Acute Disease Diagnostic Testing: Clinical Impression(s) from Imaging Studies Chest X-Ray 06/16/25 10:35 IMPRESSION: No acute cardiopulmonary process. Reading Location: [facility] Portable 1 view chest x-ray was obtained. On my independent interpretation, lung holcomb are clear. There is normal cardiac silhouette. Bony thorax is normal. There is no acute process noted. Radiologist also interpreted the x-ray and agrees. EKG Initial EKG: Attestation: I personally reviewed and interpreted this EKG as follows: Interpretation: Sinus Rhythm (71) and Non-Specific ST Changes Comments: EKG was obtained. On my independent interpretation, it showed a normal sinus rhythm with a rate of 71. NC interval, QRS interval, and QTc intervals were all normal. [place] was normal. There are nonspecific ST-T wave changes in lead III. Prior EKG tracings: not available for review Prior: No Prior Treatment and Re-Evaluation :: Patient was given aspirin and sublingual nitroglycerin. Patient was advised of her findings. Patient has a HEART score of 2. Patient was advised that this is low risk for acute cardiac event. Patient was instructed to follow-up with her primary care physician in 5 to 7 days. Patient was instructed to return if worse in any way. Patient understood and was agreeable with the plan. All questions were answered. Discharge Plan Triage Chief Complaint: Chest Pain ED Provider: Felipe Hutchins Dx/Rx/DC Orders Clinical Impression: Chest pain, Elevated blood pressure reading Instructions: ED Chest Pain, Uncertain Cause Prescriptions: No Action calcium carbonate [Calcium 500] 500 mg calcium (1,250 mg) tablet,chewable 500 mg PO BID clobetasol 0.05 % ointment 1 applic topical DAILY PRN (Reason: SKIN) betamethasone dipropionate 0.05 % cream 1 applic topical DAILY PRN (Reason: skin irritation) cholecalciferol (vitamin D3) 25 mcg (1,000 unit) capsule 25 mcg PO QDAY estradiol [Vivelle-Dot] 0.025 mg/24 hr patch semiweekly 1 patch transdermal 2XW Qty: 8 3RF Rx Instructions: apply 1 patch for 3 days alternating with 1 patch for 4 days each week medroxyprogesterone 2.5 mg tablet 2.5 mg PO QDAY Qty: 90 4RF multivitamin with folic acid 1 TABLET tablet 1 tab PO DAILY Primary Care Provider: Simi Coronado Referrals: Simi Coronado, [facility] [Primary Care Provider] - 5-7 Days Print Language: [place] Disposition Disposition: Home, Self Care
--- NOTE | 2025-06-16 10:19 | EKG12_ITS ---
Test Reason : CP Blood Pressure : */* mmHG Vent. Rate : 71 BPM Atrial Rate : 71 BPM P-R Int : 150 ms QRS Dur : 78 ms QT Int : 388 ms P-R-T Axes : 60 65 15 degrees QTcB Int : 421 ms Normal sinus rhythm Nonspecific ST abnormality Abnormal ECG When compared with ECG of 12-Jan-2014 14:13, No significant change was found Confirmed by SUSANNAH BAL, ODILON ([id number]), assignment desk editor SPENSER MONROE ([id number]) on 06/20/2025 6:35:53 AM Referred By: NICOLE Confirmed By: ODILON DAVALOS MD
[2025-06-16 10:29] LABS: Hematocrit 40.5 % (37-47); Hemoglobin 13.8 g/dL (12.0-15.0); Immature Granulocytes Count 0.030 X10^3/uL (0.0-0.0); Mean Corp Hgb Conc 34.1 g/dL (32-36); Mean Corpuscular Volume 91.0 fL (81-99); Mean Platelet Vol. 9.6 fl (6.2-12.0); NRBC Flagged by Analyzer 0 % (0-5); Platelet Count 317 K/mm3 (150-450); RBC Distribution Width CV 13.4 % (11.6-14.6); RBC Distribution Width SD 45.4 fl (35.1-43.9); Red Blood Count 4.45 M/mm3 (4.2-5.4); White Blood Count 7.1 K/mm3 (4.4-11.0)
[2025-06-16] MEDS: Nitroglycerin SL (ED/IMG/CATH) 0.4 MG TABLET SL (10:31)
--- NOTE | 2025-06-16 10:35 | RAD_ITS ---
PROCEDURE: CHEST 1 VIEW (PORTABLE) 06/16/2025 REASON FOR EXAM: CHEST PAIN TECHNIQUE: Frontal view of the chest. COMPARISON: December 28, 2018 FINDINGS: Hardware: EKG leads are present. Heart: Normal Lungs: Clear. No pneumothorax or pleural effusion. Bones: The bones are unremarkable. RAD/Chest 1 View (Portable) IMPRESSION: No acute cardiopulmonary process. Reading Location: [id number]
[2025-06-16 10:42] LABS: D-Dimer Quantitative (DVT/PE) < 0.27 FEU/ug/m (0.27-0.49)
[2025-06-16 11:04] LABS: Anion Gap 12 (5-15); BUN 11 mg/dL (4-19); BUN/Creat Ratio 13.2 RATIO (10-20); Calcium,Total 9.5 mg/dL (7.6-11.0); Carbon Dioxide 25.5 mmol/L (21.0-32.0); Chloride 102 mmol/L (98-108); Estimated Creatinine Clearance 70.86 ml/min (50-250); Glucose 102 mg/dL (70-99); Potassium 4.1 mmol/L (3.3-5.1); Troponin T High Sensitivity 6 ng/L (<=14)
[2025-06-16 12:58] LABS: Troponin T High Sens 2 HR 6 ng/L (<=14)
== END 2025-06-16 13:41 | disposition home or self-care (01) ==
PROVIDERS: Emergency Provider Emergency Medicine; PCP Nurse Practitioner Family; Visit Provider Emergency Medicine
DX: R07.89 Other chest pain (principal); R03.0 Elevated blood-pressure reading, without diagnosis of hypertension; E78.5 Hyperlipidemia, unspecified; K21.9 Gastro-esophageal reflux disease without esophagitis; R51.9 Headache, unspecified
CPT/HCPCS: 71045; 80048; 84484; 85025; 85379; 93005; 99285; A4216

== ENCOUNTER → 2025-06-30 | Outpatient (CLI) | payer BC, SELFPAY ==
--- NOTE | 2025-06-30 15:27 | US_ITS ---
PROCEDURE: PELVIC W/ TRANSVAGINAL 06/30/2025 REASON FOR EXAM: POSTMENOPAUSAL BLEEDING TECHNIQUE: Procedure Code: [id number] Modality: US Procedure: PELVIC W/ TRANSVAGINAL COMPARISON: No comparable prior exam FINDINGS: Measurements: Uterus: 6.5 x 2.8 x 2.1 cm. No focal mass or lesion. Endometrial Thickness: Normal for age and measures 3 mm. Right Ovary: Not visualized likely due to overlying bowel gas. Left Ovary: Not visualized likely due to overlying bowel-gas. Normal vascular flow. Urinary bladder negative. No free pelvic fluid. Remainder of the exam negative. US/Pelvic w/ Transvaginal IMPRESSION: Normal uterus Unable to visualize ovaries. Reading Location: [id number]
== END | disposition home or self-care (01) ==
LOC: US 15:25
PROVIDERS: PCP Nurse Practitioner Family; Referring Provider Obstetrics & Gynecology; Visit Provider Obstetrics & Gynecology
DX: N95.0 Postmenopausal bleeding (principal)
CPT/HCPCS: 76830; 76856

== ENCOUNTER → 2025-08-10 | Outpatient (CLI) | payer BC, SELFPAY ==
[2025-08-10 10:48] LABS: Vitamin D,25 Hydroxy 50.6 ng/mL (30-100)
== END | disposition home or self-care (01) ==
LOC: LAB 09:25
PROVIDERS: PCP Nurse Practitioner Family; Referring Provider Obstetrics & Gynecology; Visit Provider Obstetrics & Gynecology
DX: Z01.419 Encounter for gynecological examination (general) (routine) without abnormal findings (principal); N95.1 Menopausal and female climacteric states; M85.80 Other specified disorders of bone density and structure, unspecified site; Z13.29 Encounter for screening for other suspected endocrine disorder
CPT/HCPCS: 36415; 82306; 84439; 84443

== ENCOUNTER → 2025-09-12 | Outpatient (CLI) | payer BC, SELFPAY ==
--- NOTE | 2025-09-12 13:47 | CDU_ITS ---
Reason For Study Reason For Study: Assess for Plaque Buildup Rt. Velocities/BP Lt. Velocities/BP Prox CCA 76/20 cm/sec. Prox CCA 103/23 cm/sec. Mid CCA 98/28 cm/sec. Mid CCA 94/33 cm/sec. Dist CCA 87/26 cm/sec. Dist CCA 71/25 cm/sec. Prox ICA 78/20 cm/sec. Prox ICA 83/31 cm/sec. Mid ICA 136/45 cm/sec. Mid ICA 83/41 cm/sec. Dist ICA 113/46 cm/sec. Dist ICA 93/28 cm/sec. Rt. ICA/CCA = 1.39. Lt. ICA/CCA = 1.0. Prox ECA 103/21 cm/sec. Prox ECA 78/17 cm/sec. Rt. Vert. 50/13 cm/sec. Lt. Vert. 66/17 cm/sec. Right Extracranial There is intimal thickening but no significant atherosclerotic plaque noted in the right common carotid artery. There is intimal thickening but no significant atherosclerotic plaque noted in the right internal carotid artery. There is intimal thickening but no significant atherosclerotic plaque noted in the right external carotid artery. Antegrade flow is noted in the right vertebral artery. Left Extracranial There is intimal thickening but no significant atherosclerotic plaque noted in the left common carotid artery. There is intimal thickening but no significant atherosclerotic plaque noted in the left internal carotid artery. There is intimal thickening but no significant atherosclerotic plaque noted in the left external carotid artery. Antegrade flow is noted in the left vertebral artery. Procedure Carotid Duplex [id number]. This is a Carotid Duplex examination using B-mode, color flow and specral Doppler. Exam performed in department. VL/Carotid Duplex Ultrasound Interpretation Summary Right extracranial internal carotid artery with elevated velocities and turbule nce without visualized plaque. Alternative imaging modality may be beneficial. Normal left extracranial internal carotid. Patent and antegrade vertebrals bilaterally. Ordering Physician: Simi Coronado Referring Physician: Simi Coronado Performed By: Simi Rowe RDCS, RVT
--- OUTSIDE RECORDS SUMMARY | 2025-09-12 16:29 | XMS RPT_ITS | CCD ---
Author Organization [facility] Informat ion Partnership OUTCOME ANALYST [facility] Care Team Providers Care Newspaper Vendor Name Role Phone Carline Chung LPN Unavailable [phone] Niki Mai LPN Unavailable Unavailab viraj Sloan MD, Heriberto Boyd Primary Care Provider Nathalia BAL, Heriberto Boyd Primary Care Provider RICARDO JC Attending Unavailable RICARDO JC Referring Unavailable HERIBERTO SLOAN Primary Care Unavailable RICARDO JC Attending Unavailable RICARDO JC Referring Unavailable NATHALIA, HERIBERTO BOYD Primary Care Unavailable RICARDO JC Attending Unavailable HERIBERTO SLOAN Referring Unavailable [facility] Primary Care Unavailable HEIDY DIAZ Attending Unavailable HERIBERTO SLOAN OLIEVR Primary Care Unavailable PHILIP CROCKETT Attending Unavailable HEIDY DIAZ Referring Unavailable NATHALIAHERIBERTO ROLAND Primary Care Unavailable Nathalia BAL, Heriberto Boyd Primary Care Provider Cliff, Simi Primary Care Unavailable Robotham, Shahrzad Consulting Unavailable Robotham, Shahrzad Attending Unavailable Cliff, Simi Referring Unavailable Cliff, Simi Primary Care Unavailable Kitty Baumann Attending Unavailabl e Cliff, Simi Referring Unavailable Cliff, Simi Primary Care Unavailable Cliff, Simi Attending Unavailable Cliff, Simi Referring Unavailable Vande Velde Kitty Referring Unavailabl e Cliff, Simi Primary Care Unavailable Kitty Baumann Attending Unavailabl e Felipe Hutchins Attending Unavailable Cliff, Simi Primary Care Unavailable Cliff, Simi Primary Care Unavailable Assessment, Health Risk Attending Unavaila ble Assessment, Health Risk Referring Unavaila ble Cliff, Simi Primary Care Unavailable Jam Coronadohel Attending Unavailable Cliff, Simi Referring Unavailable Kitty Baumann Referring Unavailabl e Cliff, Simi Primary Care Unavailable Kitty Baumann Attending Unavailabl e Cliff, Simi Referring Unavailable Cliff, Simi Primary Care Unavailable Shahrzad Carlos Attending Unavailable Allergies Allergy Classification Reported Allergen(s) Allergy Type Date of Onset Reaction(s) Facility Formaldehyde (1 source) Formaldehyde Drug Allergy 6 Itching [facility] Work Phone: Latex (1 source) Latex Substance Allergy 7 Itching [facility] Work Phone: Macrolides (antibiotic) (1 source) Erythromycin Drug Allergy 6 GI Upset [facility] Work Phone: Penicillins (antibiotic) (1 source) Penicillins Drug Allergy 6 [facility] Work Phone: (13 sources) erythromycin drug allergy 6 GI Upset [facility] Work Phone: [phone] (2 sources) penicillin v drug allergy 7 unknown reaction [facility] Work Phone: [phone] (13 sources) Formaldehyde; Translations: [FORMALDEHYDE] Drug Allergy 6 Itching [facility] Work Phone: (13 sources) Latex; Translations: [LATEX] Propensity to adverse reactions 7 Itching [facility] Work Phone: (4 sources) Penicillins; Translations: [PENICILLINS] Propensity to adverse reactions 6 [facility] Work Phone: (14 sources) Alcohols, C12-15, Ethoxylated; Translations: [ALCOHOLS, C12-15, ETHOXYLATED] Propensity to adverse reactions 6 Itching [facility] Work Phone: (14 sources) Fragrances; Translations: [FRAGRANCES] Propensity to adverse reactions 6 Itching [facility] Work Phone: (12 sources) other chemical in hair care products [Other] Propensity to adverse reactions 6 [facility] Work Phone: (9 sources) Penicillins Propensity to adverse reactions 6 [facility] Work Phone: (2 sources) Erythromycin; Translations: [ERYTHROMYCIN] Drug Allergy 6 [facility] Repository (2 sources) OTHER; Translations: [OTHER] Propensity to adverse reactions (disorder) 6 [facility] Repository (1 source) Erythromycin Drug Allergy 5 [facility] Repository (1 source) Formaldehyde Drug Allergy 5 [facility] Repository (1 source) Lanolin Drug Allergy 5 [facility] Repository (1 source) Latex Drug allergy (disorder) 5 [facility] Repository (1 source) Penicillins Drug allergy (disorder) 5 [facility] Repository (1 source) Environmental Allergies: Uncoded; Translations: [Environmental Allergies: Uncoded] Propensity to adverse reactions (disorder) 5 [facility] Repository (1 source) perfume Drug allergy (disorder) 5 [facility] Repository Medications Current Medications Medication Drug Class(es) Dates Sig (Normalized) Sig (Original) azelaic acid-niacinamide 15-4 % crea (12 sources) azelaic acid-niacinamide 15-4 % crea Apply to affected area. Active azelaic acid-tiffanie cinamide 15-4 % crea Apply to affected area. 0 Active Comment on above: Apply to affected ar ea. clobetasol propionate 0.0005 mg/mg topical ointment (20 sources) Corticosteroid Start: 06-18-2022 End: 12-02-2023 clobetasol (TEMOVATE) 0.05 % ointment Apply 1 application to affected area two times a day. Apply thin coat to affected tissue BID x 6 weeks then use 1 x weekly for maintenance 30 g 12/02/2023 Active Start: 12-28-2021 clobetasol (TE MOVATE) 0.05 % ointment Apply 1 application to affected area twice daily. Apply thin coat to affected tissue BID x 6 weeks then use 1 x weekly for maintenance 30 g 0 12/28/2021 Active Start: 08-11-2018 clobetasol (TE MOVATE) 0.05 % ointment Indications: Vulvar dermatitis Apply to affected area nightly x 4 weeks then PRN at least 1 x week for maintenance 30 g 08/11/2018 Active Comment on above: Apply to affected ar ea nightly x 4 weeks then PRN at least 1 x week for maintenance Apply 1 application to affected area twice daily. Apply thin coat to affected tissue BID x 6 weeks then use 1 x weekly for maintenance Apply 1 application to affected area two times a day. Apply thin coat to affected tissue BID x 6 weeks then use 1 x weekly for maintenance escitalopram 10 mg oral tablet (12 sources) Serotonin Reuptake Inhibitor Start: 12-03-2021 escitalopram oxalate (LEXAPRO) 10 mg tablet 12/03/2021 Active nystatin 100 unt/mg topical powder (12 sources) Polyene Antifungal Start: 10-30-2021 nystatin (MYCOSTATIN) powder apply topically 4 times daily as needed 10/30/2021 Active Comment on above: apply topically 4 ti mes daily as needed Completed/Discontinued Medications Medication Drug Class(es) Dates Sig (Normalized) Sig (Original) cephalexin 500 mg oral capsule (2 sources) Cephalosporin Antibacterial Start: 07-07-2017 End: 07-14-2017 CEPHALEXIN 500 MG CAPS Take 1 capsule every 12 hours CEPHALEXIN [id number] Duy STEVENSON meloxicam 15 mg oral tablet (5 sources) Nonsteroidal Anti-inflammatory Drug Start: 12-14-2021 take 1 tablet by mouth once daily meloxicam (MOBIC) 15 mg tablet Take 15 mg by mouth once daily. 0 12/14/2021 Active Comment on above: Take 15 mg by mouth once daily. METRONIDAZOLE GEL (2 sources) Nitroimidazole Antimicrobial Start: 07-07-2017 METROGEL GEL as directed METRONIDAZOLE GEL [id number] Niki Mai LPN SERTRALINE HCL TABS (2 sources) Serotonin Reuptake Inhibitor Start: 07-07-2017 ZOLOFT TABS as directed SERTRALINE HCL TABS [id number] Niki Mai LPN Problems Active Problems Problem Classification Problem Date Documented Da te Episodic/Chronic Anxiety disorders (12 sources) Anxiety neurosis ; Translations: [Generalized anxiety disorder] Onset: 06-13-2015 06-13-2015 Chronic Disorders of lipid metabolism (1 source) Hyperlipidemia, unspecified; Translations: [Hyperlipidemia, unspecified] Onset: 09-05-2025 Chronic Immunizations and screening for infectious disease (7 sources) Anti-cyclic citrullinated peptide antibody positive; Translations: [Other specified abnormal immunological findings in serum] Onset: 11-27-2022 Episodic Menopausal disorders (2 sources) Postmenopausal bleeding; Translations: [Menopausal and female climacteric states] Onset: 04-18-2025 Chronic Nonmalignant breast conditions (12 sources) Fibrocystic disease of breast; Translations: [Diffuse cystic mastopathy of unspecified breast] Onset: 11-15-2008 11-15-2008 Chronic Nonspecific chest pain (1 source) Chest pain, unspecified; Translations: [Chest pain, unspecified] Onset: 06-21-2025 Episodic Other bone disease and musculoskeletal deformities (3 [...] unspecified] Chronic Other inflammatory condition of skin (12 sources) Rosacea; Translations: [Rosacea, unspecified] Onset: 06-13-2015 [...] Other Problems Problem Classification Problem Date Documented Date Episodic/Chronic Menstrual disorders (2 sources) Irregular periods; Translations: [Irregular menstruation, unspecified] Onset: 11-15-2008 Resolved: 07-09-2016 10-15-2012 Chronic Other bone disease and musculoskeletal deformities (1 source) Other specified disorders of bone density and structure, unspecified site; Translations: [Other specified disorders of bone density and structure, unspecified site] Onset: 04-18-2025 Episodic Other congenital anomalies (1 source) Congenital anomaly of skin; Translations: [Other specified congenital malformations of skin] Onset: 01-07-2006 Resolved: 07-19-2014 07-19-2014 Chronic Other female genital disorders (1 source) Complex endometrial hyperplasia 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; Translations: [Benign endometrial hyperplasia] Onset: 08-13-2011 Resolved: 07-09-2016 07-09-2016 Chronic Other female genital disorders (1 source) Noninflammatory cervical disorder; Translations: [Other specified noninflammatory disorders of cervix uteri] Onset: 04-23-2010 Resolved: 07-09-2016 07-09-2016 Episodic Other female genital disorders (1 source) Hypertrophy of uterus; Translations: [Hypertrophy of uterus] Onset: 04-23-2010 Resolved: 07-09-2016 07-09-2016 Episodic Other screening for suspected conditions (not mental disorders or infectious disease) (5 sources) Elevated C-reactive protein; Translations: [Elevated C-reactive protein (CRP)] Onset: 04-09-2022 Episodic Other skin disorders (1 source) Personal history of diseases of the skin and subcutaneous tissue; Translations: [History of dimpling of breast skin] Onset: 12-30-2022 Episodic Skin and subcutaneous tissue infections (2 sources) Cellulitis; Translations: [Cellulitis, unspecified] Onset: 07-07-2017 07-07-2017 Episodic Results Test Name Value Interpretation Reference Range Facility CBC, Employeeon 08-10-2025 Absolute Lymph 1.22 X10 3/uL Normal 0.83-4.51 [facility] Comment on above: Performed By: #### L 500.2900, L100.0200, L400.0100 #### [facility] [address] [place], [address] Absolute Neut 3.7 X10 3/uL Normal 2.0-7.7 [facility] Comment on above: Performed By: #### L 500.2900, L100.0200, L400.0100 #### [facility] [address] [place], [address] Basophils/100 WBC (Bld) 0.7 % Normal 0-1 [facility] Comment on above: Performed By: #### L 500.2900, L100.0200, L400.0100 #### [facility] [address] [place], [address] Eosinophils/100 WBC (Bld) 4.3 % Normal 0-5 [facility] Comment on above: Performed By: #### L 500.2900, L100.0200, L400.0100 #### [facility] [address] [place], [address] Erythrocyte distribution width (RBC) [Ratio] 13.2 % Normal 11.6-14.6 [facility] Comment on above: Performed By: #### L 500.2900, L100.0200, L400.0100 #### [facility] [address] [place], [address] Hematocrit (Bld) [Volume fraction] 40.6 % Normal 37-47 [facility] Comment on above: Performed By: #### L 500.2900, L100.0200, L400.0100 #### [facility] [address] [place], [address] Hemoglobin (Bld) [Mass/Vol] 13.4 g/dL Normal 12.0-15.0 [facility] Comment on above: Performed By: #### L 500.2900, L100.0200, L400.0100 #### [facility] [address] [place], [address] Lymphocytes/100 WBC (Bld) 21.2 % Normal 19-41 [facility] Comment on above: Performed By: #### L 500.2900, L100.0200, L400.0100 #### [facility] [address] [place], [address] MCH (RBC) [Entitic mass] 29.8 pg Normal 27.0-32.0 [facility] Comment on above: Performed By: #### L 500.2900, L100.0200, L400.0100 #### [facility] [address] [place], [address] MCHC (RBC) [Mass/Vol] 33.0 g/dL Normal 32-36 [facility] Comment on above: Performed By: #### L 500.2900, L100.0200, L400.0100 #### [facility] [address] [place], [address] MCV (RBC) [Entitic vol] 90.4 fL Normal 81-99 [facility] Comment on above: Performed By: #### L 500.2900, L100.0200, L400.0100 #### [facility] [address] [place], [address] Monocytes/100 WBC (Bld) 10.1 % High 0-10 [facility] Comment on above: Performed By: #### L 500.2900, L100.0200, L400.0100 #### [facility] [address] [place], [address] Neutrophils/100 WBC (Bld) 63.4 % Normal 47-70 [facility] Comment on above: Performed By: #### L 500.2900, L100.0200, L400.0100 #### [facility] [address] [place], [address] NRBC # 0.00 10 3/uL Normal 0-5 [facility] Comment on above: Performed By: #### L 500.2900, L100.0200, L400.0100 #### [facility] [address] [place], [address] Nucleated RBC (Bld) [#/Vol] 0 10*3/uL Normal 0-5 [facility] Comment on above: Performed By: #### L 500.2900, L100.0200, L400.0100 #### [facility] [address] [place], [address] Platelet mean volume (Bld) [Entitic vol] 9.1 fL Normal 6.2-12.0 [facility] Comment on above: Performed By: #### L 500.2900, L100.0200, L400.0100 #### [facility] [address] [place], [address] Platelets (Bld) [#/Vol] 316 10*3/uL Normal 150-450 [facility] Comment on above: Performed By: #### L 500.2900, L100.0200, L400.0100 #### [facility] [address] [place], [address] RBC (Bld) [#/Vol] 4.49 10*6/uL Normal 4.2-5.4 [facility] Comment on above: Performed By: #### L 500.2900, L100.0200, L400.0100 #### [facility] [address] [place], [address] RDW SD 43.5 fl Normal 35.1-43.9 [facility] Comment on above: Performed By: #### L 500.2900, L100.0200, L400.0100 #### [facility] [address] [place], [address] WBC (Bld) [#/Vol] 5.8 10*3/uL Normal 4.4-11.0 [facility] Comment on above: Performed By: #### L 500.2900, L100.0200, L400.0100 #### [facility] [address] [place], [address] Employee Profileon LDH 165 U/L Normal 84-246 [facility] Comment on above: Order Comment: SEND LIPID AND GLUCOSE TO Performed By: #### L 500.2900, L100.0200, L400.0100 #### [facility] [address] [place], [address] Phosphate [Mass/Vol] 2.9 mg/dL Normal 2.7-4.5 [facility] Comment on above: Order Comment: SEND LIPID AND GLUCOSE TO Performed By: #### L 500.2900, L100.0200, L400.0100 #### [facility] [address] [place], [address] URIC 5.3 mg/dL Normal 2.6-6.0 [facility] Comment on above: Order Comment: SEND LIPID AND GLUCOSE TO Result Comment: The drugs N-Acetylcysteine and Metamizole may falsely depress this assay. Performed By: #### L 500.2900, L100.0200, L400.0100 #### [facility] [address] [place], [address] T4 Free Directon 08-10-2025 T4 FREE DIRECT 1.00 ng/dL Normal 0.76-1.46 [facility] Comment on above: Performed By: #### L 499.0042 #### [facility] [address] [place], [address] Thyroid Stim Hormone (TSH)on 08-10-2025 TSH 2.920 uIU/mL Normal 0.300-4.200 [facility] Comment on above: Performed By: #### L 499.0042 #### [facility] [address] [place], [address] Urinalysis, Employeeon 08-10 BILIRUBIN URINE Normal Negative [facility] Comment on above: Order Comment: Urine , Random Result Comment: NOT WANTED Performed By: #### L 500.2900, L100.0200, L400.0100 #### [facility] [address] [place], [address] Clarity (U) Normal Clear [facility] Comment on above: Order Comment: Urine , Random Result Comment: NOT WANTED Performed By: #### L 500.2900, L100.0200, L400.0100 #### [facility] [address] [place], [address] Color (U) Normal Yellow [facility] Comment on above: Order Comment: Urine , Random Result Comment: NOT WANTED Performed By: #### L 500.2900, L100.0200, L400.0100 #### [facility] [address] [place], [address] GLUCOSE, UR Normal Normal [facility] Comment on above: Order Comment: Urine , Random Result Comment: NOT WANTED Performed By: #### L 500.2900, L100.0200, L400.0100 #### [facility] [address] [place], [address] KETONE UR Normal Negative [facility] Comment on above: Order Comment: Urine , Random Result Comment: NOT WANTED Performed By: #### L 500.2900, L100.0200, L400.0100 #### [facility] [address] [place], [address] LEUK ESTERASE Normal Negative [facility] Comment on above: Order Comment: Urine , Random Result Comment: NOT WANTED Performed By: #### L 500.2900, L100.0200, L400.0100 #### [facility] [address] [place], [address] Nitrite Ql (U) Normal Negative [facility] Comment on above: Order Comment: Urine , Random Result Comment: NOT WANTED Performed By: #### L 500.2900, L100.0200, L400.0100 #### [facility] [address] [place], [address] OCCULT BLOOD-UR Normal Negative [facility] Comment on above: Order Comment: Urine , Random Result Comment: NOT WANTED Performed By: #### L 500.2900, L100.0200, L400.0100 #### [facility] [address] [place], [address] pH UR Normal 5.0 - 8.0 [facility] Comment on above: Order Comment: Urine , Random Result Comment: NOT WANTED Performed By: #### L 500.2900, L100.0200, L400.0100 #### [facility] [address] [place], [address] PROT DIPSTX Normal Negative [facility] Comment on above: Order Comment: Urine , Random Result Comment: NOT WANTED Performed By: #### L 500.2900, L100.0200, L400.0100 #### [facility] [address] [place], [address] SP.GR. DIPSTX Normal 1.002-1.030 [facility] Comment on above: Order Comment: Urine , Random Result Comment: NOT WANTED Performed By: #### L 500.2900, L100.0200, L400.0100 #### [facility] [address] [place], [address] UR Preservative Normal [facility] Comment on above: Order Comment: Urine , Random Result Comment: NOT WANTED Performed By: #### L 500.2900, L100.0200, L400.0100 #### [facility] [address] [place], [address] UROBILI Normal Normal [facility] Comment on above: Order Comment: Urine , Random Result Comment: NOT WANTED Performed By: #### L 500.2900, L100.0200, L400.0100 #### [facility] [address] [place], [address] Vitamin D,25 Hydroxyon 08-10 Vitamin D 25-OH 50.6 ng/mL Normal 30-100 [facility] Comment on above: Result Comment: Doreen min D Status Deficiency: <20 ng/mL (50nmol/L) Insufficiency: 20-30 ng/mL (50-75 nmol/L) Sufficiency: 30-100 ng/mL (75-250 nmol/L) Toxicity: >100 ng/mL (>250 nmol/L) Performed By: #### L 499.0042 #### [facility] [address] [place], [address] Pelvic w/ Transvaginalon Pelvic w/ Transvaginal [facility] Imaging Services [address] [place] [address] Pelvic w/ Transvaginal MR#: [id number] Acct: [id number] Name: SUNI WILSON Rep #: [id number] : 1965 F 59 From: Eleazar Henry MD PCP: JARON Prince Status: REG CLI Study: Pelvic w/ Transvaginal Date of Exam: 06/30/25 Exam# [id number] Ordering Dr: Kitty Baumann DO PROCEDURE: PELVIC W/ TRANSVAGINAL 06/30/2025 REASON FOR EXAM: POSTMENOPAUSAL BLEEDING TECHNIQUE: Procedure Code: USPELTVAG Modality: US Procedure: PELVIC W/ TRANSVAGINAL COMPARISON: No comparable prior exam FINDINGS: Measurements: Uterus: 6.5 x 2.8 x 2.1 cm. No focal mass or lesion. Endometrial Thickness: Normal for age and measures 3 mm. Right Ovary: Not visualized likely due to overlying bowel gas. Left Ovary: Not visualized likely due to overlying bowel-gas. Normal vascular flow. Urinary bladder negative. No free pelvic fluid. Remainder of the exam negative. US/Pelvic w/ Transvaginal IMPRESSION: Normal uterus Unable to visualize ovaries. Reading Location: [id number] CC: JARON Coronado; Dr. Kitty Baumann DO Advertising Writer: Signed Normal [facility] 12 Lead EKGon 06-16-[address] [facility] Cardi[facility] Services [address] [place] [address] 12 Lead EKG 06/16/25 0939 MR#: [id number] Acct: [id number] Name: SUNI WILSON Rep #: [id number] : 1965 59 From: Oswald Zamora MD Attending Dr: Status: DEP ER Ordering Dr: Felipe Hutchins DO Date: 06/16/25 Location: ED Sex: F C Admitted: Test Reason : CP Blood Pressure : */* mmHG Vent. Rate : 71 BPM Atrial Rate : 71 BPM P-R Int : 150 ms QRS Dur : 78 ms QT Int : 388 ms P-R-T Axes : 60 65 15 degrees QTcB Int : 421 ms Normal sinus rhythm Nonspecific ST abnormality Abnormal ECG When compared with ECG of 12-Jan-2014 14:13, No significant change was found Confirmed by SUSANNAH BAL, ODILON ([id number]), advertising editor SPENSER [place]ROE ([id number]) on 06/20/2025 6:35:53 AM Referred By: ES Confirmed By: ODILON ZAMORA MD 06/20/25 0635 Date Oswald Zamora MD CC: MARKETING AUTOMATION SPECIALIST-Alfred Coronado; Dr. Felipe Hutchins DO Signed Normal [facility] Basic Metabolic Profile (BMP )on 06-16-2025 BUN/CRE 13.2 RATIO Normal 10-20 [facility] Comment on above: Performed By: #### L 500.2500, L300.8000, L100.0100, L501.4021 #### [facility] [address] [place], [address] Calcium [Mass/Vol] 9.5 mg/dL Normal 7.6-11.0 [facility] Comment on above: Performed By: #### L 500.2500, L300.8000, L100.0100, L501.4021 #### [facility] [address] [place], [address] Chloride [Moles/Vol] 102 mmol/L Normal 98-108 [facility] Comment on above: Performed By: #### L 500.2500, L300.8000, L100.0100, L501.4021 #### [facility] [address] [place], [address] CO2 [Moles/Vol] 25.5 mmol/L Normal 21.0-32.0 [facility] Comment on above: Performed By: #### L 500.2500, L300.8000, L100.0100, L501.4021 #### [facility] [address] [place], [address] Creatinine [Mass/Vol] 0.80 mg/dL Normal 0.70-1.20 [facility] Comment on above: Performed By: #### L 500.2500, L300.8000, L100.0100, L501.4021 #### [facility] [address] [place], [address] ECRCL 70.86 ml/min Normal 50-250 [facility] Comment on above: Performed By: #### L 500.2500, L300.8000, L100.0100, L501.4021 #### [facility] [address] [place], [address] GAP 12 Normal 5-15 [facility] Comment on above: Performed By: #### L 500.2500, L300.8000, L100.0100, L501.4021 #### [facility] [address] [place], [address] GFR/1.73 sq M.predicted among non-blacks MDRD (S/P/Bld) [Vol rate/Area] 84 mL/min/{1.73_m2} Normal >60 [facility] Comment on above: Result Comment: mL/m in/1.73m2 CKD-EPI Creatinine Equation (2020) Performed By: #### L 500.2500, L300.8000, L100.0100, L501.4021 #### [facility] [address] [place], [address] Glucose [Mass/Vol] 102 mg/dL High 70-99 [facility] Comment on above: Performed By: #### L 500.2500, L300.8000, L100.0100, L501.4021 #### [facility] [address] [place], [address] Potassium [Moles/Vol] 4.1 mmol/L Normal 3.3-5.1 [facility] Comment on above: Performed By: #### L 500.2500, L300.8000, L100.0100, L501.4021 #### [facility] [address] [place], [address] Sodium [Moles/Vol] 139 mmol/L Normal 133-145 [facility] Comment on above: Performed By: #### L 500.2500, L300.8000, L100.0100, L501.4021 #### [facility] [address] [place], [address] Urea nitrogen [Mass/Vol] 11 mg/dL Normal 4-19 [facility] Comment on above: Performed By: #### L 500.2500, L300.8000, L100.0100, L501.4021 #### [facility] [address] [place], [address] CBC W/Diff, Automatedon - Absolute Lymph 1.42 X10 3/uL Normal 0.83-4.51 [facility] Comment on above: Performed By: #### L 500.2500, L300.8000, L100.0100, L501.4021 #### [facility] [address] [place], [address] Absolute Neut 4.8 X10 3/uL Normal 2.0-7.7 [facility] Comment on above: Performed By: #### L 500.2500, L300.8000, L100.0100, L501.4021 #### [facility] [address] [place], [address] Basophils/100 WBC (Bld) 0.8 % Normal 0-1 [facility] Comment on above: Performed By: #### L 500.2500, L300.8000, L100.0100, L501.4021 #### [facility] [address] [place], [address] Eosinophils/100 WBC (Bld) 2.2 % Normal 0-5 [facility] Comment on above: Performed By: #### L 500.2500, L300.8000, L100.0100, L501.4021 #### [facility] [address] [place], [address] Erythrocyte distribution width (RBC) [Ratio] 13.4 % Normal 11.6-14.6 [facility] Comment on above: Performed By: #### L 500.2500, L300.8000, L100.0100, L501.4021 #### [facility] [address] [place], [address] Hematocrit (Bld) [Volume fraction] 40.5 % Normal 37-47 [facility] Comment on above: Performed By: #### L 500.2500, L300.8000, L100.0100, L501.4021 #### [facility] [address] [place], [address] Hemoglobin (Bld) [Mass/Vol] 13.8 g/dL Normal 12.0-15.0 [facility] Comment on above: Performed By: #### L 500.2500, L300.8000, L100.0100, L501.4021 #### [facility] [address] [place], [address] IG% 0.400 Normal 0.0-0.9 [facility] Comment on above: Result Comment: IG% - Immature Granulocytes (promyelocytes, myelocytes and metamyelocytes) > 1% indicates that a LEFT SHIFT is Present. Performed By: #### L 500.2500, L300.8000, L100.0100, L501.4021 #### [facility] [address] [place], [address] Lymphocytes/100 WBC (Bld) 19.9 % Normal 19-41 [facility] Comment on above: Performed By: #### L 500.2500, L300.8000, L100.0100, L501.4021 #### [facility] [address] [place], [address] MCH (RBC) [Entitic mass] 31.0 pg Normal 27.0-32.0 [facility] Comment on above: Performed By: #### L 500.2500, L300.8000, L100.0100, L501.4021 #### [facility] [address] [place], [address] MCHC (RBC) [Mass/Vol] 34.1 g/dL Normal 32-36 [facility] Comment on above: Performed By: #### L 500.2500, L300.8000, L100.0100, L501.4021 #### [facility] [address] [place], [address] MCV (RBC) [Entitic vol] 91.0 fL Normal 81-99 [facility] Comment on above: Performed By: #### L 500.2500, L300.8000, L100.0100, L501.4021 #### [facility] [address] [place], [address] Monocytes/100 WBC (Bld) 9.7 % Normal 0-10 [facility] Comment on above: Performed By: #### L 500.2500, L300.8000, L100.0100, L501.4021 #### [facility] [address] [place], [address] Neutrophils/100 WBC (Bld) 67.0 % Normal 47-70 [facility] Comment on above: Performed By: #### L 500.2500, L300.8000, L100.0100, L501.4021 #### [facility] [address] [place], [address] Nucleated RBC (Bld) [#/Vol] 0 10*3/uL Normal 0-5 [facility] Comment on above: Performed By: #### L 500.2500, L300.8000, L100.0100, L501.4021 #### [facility] [address] [place], [address] Platelet mean volume (Bld) [Entitic vol] 9.6 fL Normal 6.2-12.0 [facility] Comment on above: Performed By: #### L 500.2500, L300.8000, L100.0100, L501.4021 #### [facility] [address] [place], [address] Platelets (Bld) [#/Vol] 317 10*3/uL Normal 150-450 [facility] Comment on above: Performed By: #### L 500.2500, L300.8000, L100.0100, L501.4021 #### [facility] [address] [place], [address] RBC (Bld) [#/Vol] 4.45 10*6/uL Normal 4.2-5.4 [facility] Comment on above: Performed By: #### L 500.2500, L300.8000, L100.0100, L501.4021 #### [facility] [address] [place], [address] RDW SD 45.4 fl High 35.1-43.9 [facility] Comment on above: Performed By: #### L 500.2500, L300.8000, L100.0100, L501.4021 #### [facility] [address] [place], [address] WBC (Bld) [#/Vol] 7.1 10*3/uL Normal 4.4-11.0 [facility] Comment on above: Performed By: #### L 500.2500, L300.8000, L100.0100, L501.4021 #### [facility] [address] [place], [address] Chest 1 View (Portable)on Chest 1 View (Portable) [facility] Imaging Services [address] [place] [address] Chest 1 View (Portable) MR#: [id number] Acct: [id number] Name: SUNI WILSON Rep #: [id number] : 1965 F 59 From: Everardo Gaxiola MD PCP: Simi Cliff, MARKETING AUTOMATION SPECIALIST-C Status: REG ER Study: Chest 1 View (Portable) Date of Exam: 06/16/25 Exam# [id number] Ordering Dr: Felipe Hutchins DO PROCEDURE: CHEST 1 VIEW (PORTABLE) 06/16/2025 REASON FOR EXAM: CHEST PAIN TECHNIQUE: Frontal view of the chest. COMPARISON: December 28, 2018 FINDINGS: Hardware: EKG leads are present. Heart: Normal Lungs: Clear. No pneumothorax or pleural effusion. Bones: The bones are unremarkable. RAD/Chest 1 View (Portable) IMPRESSION: No acute cardiopulmonary process. Reading Location: [id number] CC: MARKETING AUTOMATION SPECIALIST-C Simi Coronado; Dr. Felipe Hutchins DO Advertising Writer: Signed Normal [facility] D-Dimer Quantitative (DVT/PE )on 06-16-2025 D-DIMER QUANT < 0.27 Low 0.27-0.49 [facility] Comment on above: Result Comment: NORM AL D-Dimer level (<0.50) indicates no DVT or PE. Performed By: #### L 500.2500, L300.8000, L100.0100, L501.4021 #### [facility] [address] [facility] [place], [address] Emergency Department Summary on 06-16-2025 Emergency Department Summary [facility] Medical Records Department [address] [place] [address] Emergency Department Summary 06/16/25 MR#: [id number] Acct: [id number] Name: SUNI WILSON Rep #: [id number] : 1965 59 From: Felipe Hutchins DO PCP: JARON Prince Status:DEP ER Location: ED HPI History of Present Illness Chief Complaint: Chest Pain Informant: patient Onset/Context/Timing Onset: Today Activity at onset: sudden Timing: Continuous Quality: Positive for Tightness Location: Substernal, Right Parasternal, Left Parasternal, Right Chest and Left Chest Worsened By: Nothing Relieved By: Nothing Associated Symptoms: Positive for Acid Reflux; Negative for Nausea, Vomiting, Diaphoresis, Dyspnea, Cough, Fever, Lightheadedness or Palpitations Narrative Narrative: Patient presents with chest pain that began today. Patient describes it as a tightness. Patient states it feels like there is a band around her chest. Patient states nothing makes it worse and nothing makes it better. Patient states her pain began rather suddenly. Patient states it has been constant for the past couple hours. Patient states she felt like she had a catch in her throat. Patient states she had a similar symptoms with palpitations in the past. Patient denies any palpitations today. CVD Risk Factors: Negative for Hypertension, Diabetes, Hypercholesterolemia , Family History 1' or Smoking PE Risk Factors: Positive for Cancer; Negative for Recent Travel/Surgery, Recent Immobilization, Prior DVT or PE or OCP + Smoking + >/=35 PFSH PFSH Medical History Hyperlipidemia Basal cell carcinoma Rosacea Psoriasis Post-menopausal Wears glasses Cancer Anxiety Alcohol use Psoriasiform eczema Polyarticular arthritis Back pain Osteopenia Injury of head and neck Non-smoker History of pain when walking History of echocardiogram History of irregular heartbeat Hx of breast lump Home Medications ???Medication ???Instructions ???Recorded ???Last Taken ???Type multivitamin with folic acid 400 1 tab PO DAILY 01/12/14 Unknown Hi story mcg tablet calcium carbonate (Calcium 500) 500 mg PO BID 12/02/17 Unknown His tory betamethasone dipropionate 0.05 % 1 applic topical DAILY PRN skin 0 06/03/24 Unknown History topical cream irritation clobetasol 0.05 % topical ointment 1 applic topical DAILY PRN SKIN 06/03/24 Unknown History cholecalciferol (vitamin D3) 25 25 mcg PO QDAY 04/18/25 Unknown Hi story mcg (1,000 unit) capsule estradiol 0.025 mg/24 hr 1 patch transdermal 2XW #8 ea 03/28 01/18 Unknown Rx semiweekly transdermal patch (Vivelle-Dot) medroxyprogesterone 2.5 mg tablet 2.5 mg PO QDAY #90 tabs 04/18/25 Unknown Rx Allergy/AdvReac Type Severity Reaction Status Date / Time formaldehyde Allergy Intermediate Rash Verified 06/16/25 09:42 Environmental Allergies: Allergy Rash Verified 06/16/25 09:42 Uncoded lanolin Allergy Rash Verified 06/16/25 09:42 latex Allergy Rash Verified 06/16/25 09:42 perfume Allergy Itching Verified 06/16/25 09:42 erythromycin base AdvReac Vomiting Verified 06/16/25 09:42 (Erythromycin Base) Penicillins AdvReac PT UNSURE Verified 06/16/25 09:42 OF REACTION Family History Brother Colon polyps Grandmother Arthritis Mother Anemia Hypertension High cholesterol CVA (cerebral vascular accident) Thyroid disorder Osteoporosis Father Arthritis Skin cancer Diabetes High cholesterol CVA (cerebral vascular accident) Sister Thyroid disorder Surgical History S/P breast biopsy S/P rhinoplasty Hx of rectal sphincterotomy Hx of dilation and curettage History of bunionectomy of right great toe Hx of colonoscopy Hx of section Social History household members: spouse current occupational status: employed current occupation: [employer] Smoking Status: Never smoker alcohol intake: current alcohol intake frequency: 3 or more drinks per day Alcohol type: beer details: 7-14 craft beers a week substance use type: does not use caffeine: Yes what type of physical activity do you participate in: bicycling, aerobics and weight training frequency: daily additional social history: - Jasbir ROS ROS ED Constitutional Constitutional ED: Denies chills or fever(s) Eyes Eyes: Denies blurry vision or change in vision ENT ENT ED: Denies rhinorrhea or sore throat Cardiovascular Cardiovascular: Reports chest pain; Denies palpitations Respiratory/Chest Respiratory/Chest: Denies cough or dyspnea Gastrointestinal Gastrointestinal: Denies nausea or vomiting Genitourinary Genitourinary ED (more content not included)... Normal [facility] L501.4021on 06-16-2025 Trop T High Sen 6 ng/L Normal <=14 [facility] Comment on above: Performed By: #### L 500.2500, L300.8000, L100.0100, L501.4021 #### [facility] [address] [place], [address] Troponin T HS 2 HRon 025 Trop T High Sen 6 ng/L Normal <=14 [facility] Comment on above: Performed By: #### L 499.0042 #### [facility] [address] [place], [address] Troponin T HS 4 HRon 025 Trop T High Sen Normal <=14 [facility] Comment on above: Result Comment: Canc elled via OM: Order cancelled - Patient discharged Performed By: #### L 499.0043 #### [facility] [address] [place], [address] [employer] Office Visit Reporton 04-18-2025 [employer] Office Visit Report [facility] [address], [address] [place] [address] OFFICE VISIT Date of Service: 04/18/25 MR#: [id number] Acct: [id number] Name: SUNI WILSON Rep #: [id number] : 1965 Provider: Dr. 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: No Is patient in pain?: No Allergies formaldehyde Allergy (Intermediate, Verified 04/18/25 13:34) Rash Environmental Allergies: Uncoded Allergy (Verified 04/18/25 13:34) Rash lanolin Allergy (Verified 04/18/25 13:34) Rash latex Allergy (Verified 04/18/25 13:34) Rash perfume Allergy (Verified 04/18/25 13:34) Itching erythromycin base (Erythromycin Base) Adverse Reaction (Verified 04/18/25 13:34) Vomiting Penicillins Adverse Reaction (Verified 04/18/25 13:34) PT UNSURE OF REACTION Medications ???Medication ???Instructions ???Recorded ???Confirmed ???Type multivitamin with folic acid 400 1 tab PO DAILY 01/12/14 04/18/25 H istory mcg tablet calcium carbonate (Calcium 500) 500 mg PO BID 12/02/17 04/18/25 Hi story betamethasone dipropionate 0.05 % 1 applic topical DAILY PRN skin 0 06/03/24 04/18/25 History topical cream irritation clobetasol 0.05 % topical ointment 1 applic topical DAILY PRN SKIN 06/03/24 04/18/25 History cholecalciferol (vitamin D3) 25 25 mcg PO QDAY 04/18/25 04/18/25 H istory mcg (1,000 unit) capsule estradiol 0.025 mg/24 hr 1 patch transdermal 2XW #8 ea 03/2804/18/25 Rx semiweekly transdermal patch (Vivelle-Dot) medroxyprogesterone 2.5 mg tablet 2.5 mg PO QDAY #90 tabs 04/18/25 04/18/25 Rx Post menopausal: No Patient : No : No [facility] Medical History (Updated 04/18/25 @ 14:[address] Kitty Baumann, ) Hyperlipidemia Basal cell carcinoma Rosacea Psoriasis Post-menopausal Wears glasses Cancer Anxiety Alcohol use Psoriasiform eczema Polyarticular arthritis Back pain Osteopenia Injury of head and neck Non-smoker History of pain when walking History of echocardiogram History of irregular heartbeat Hx of breast lump Surgical History (Updated 04/18/25 @ 13:48 by Ashli Lamar) S/P breast biopsy S/P rhinoplasty Hx of rectal sphincterotomy Hx of dilation and curettage History of bunionectomy of right great toe Hx of colonoscopy Hx of section Family History Brother Colon polyps Grandmother Arthritis Mother Anemia Hypertension High cholesterol CVA (cerebral vascular accident) Thyroid disorder Osteoporosis Father Arthritis Skin cancer Diabetes High cholesterol CVA (cerebral vascular accident) Sister Thyroid disorder Social History (Updated 04/18/25 @ 13:49 by Ashli Lamar) household members: spouse current occupational status: employed current occupation: [employer] Smoking Status: Never smoker alcohol intake: current alcohol intake frequency: 3 or more drinks per day Alcohol type: beer details: 7-14 craft beers a week substance use type: does not use caffeine: Yes what type of physical activity do you participate in: bicycling, aerobics and weight training frequency: daily additional social history: - Jasbir 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 Her symptoms are weight gain, joint pain, inability to sleep. She has had vaginal dryness but that is not of concern to her. She is not really sexually active. SHe has a 3.9% ASCVD risk, and a 2.8% breast cancer 5 year risk. Female Reproductive History Questions: metorrhagia: No, sexually active: Yes, dyspareunia: No and PCB: No Menopausal Symptoms: No hot flashes, No night sweats, No weight change, No mood changes, No difficulty concentrating, No sleep problems and No change in libido History 3 Elective abortions Hx Para 2 Spontaneous abortions Hx # Term Pregnancies Ectopic pregnancies Hx # Pregnancies Multiple births # of living children Past Pregnancies Del. Date Name GA/Weeks Outcome Route Bth Weight Gen Labor Lgth Anesthesia Del Locatn Provider FOB Unknown Darrion Unknown Rae ROS Const Constitutional: Reports as per HPI; Denies fatigue, increased appetite, poor appetite, night sweats, weight gain or weight loss Cardio Card: Denies chest pain Resp Resp: Denies cough or dyspnea GI GI: Reports as per HPI; Denies abdominal pain, bloating, constipation, nausea or vomiting : Reports as per HPI and other; De (more content not included)... Normal [facility] SCRN MAMM (CAD)W/AGNES BILATo n 04-11-2025 SCRN MAMM (CAD)W/AGNES BILAT [facility] Imaging Services [address] [place] [id number] SCRN MAMM (CAD)W/AGNES BILAT MR#: [id number] Acct: [id number] Name: SUNI WILSON Rep #: [id number] : 1965 F 59 From: Ricky mejia MD PCP: JARON Prince Status: [facility] Study: SCRN MAMM (CAD)W/AGNES BILAT Date of Exam: 03/27 04/20 Exam# [id number] Ordering Dr: Simi Coronado MARKETING AUTOMATION SPECIALIST-C EXAM: SCRN MAMM (CAD)W/AGNES BILAT DATE: 04/11/2025 CLINICAL HISTORY: F, Age 59 y/o , SCREENING No family history. History of prior left stereotactic breast biopsies. BREAST CANCER RISK ASSESSMENT: Not assessed. TECHNIQUE: Bilateral screening digital breast tomosynthesis with 2D and 3D images. Computer aided detection. COMPARISON: Prior exam(s) dated January 08, 2024.. FINDINGS: TISSUE DENSITY: The breast tissue is extremely dense which lowers the sensitivity of mammography. Bilateral Breast Mammographic Findings: No significant masses, calcifications or other abnormalities are identified. Stable asymmetry of breast tissue were more breast tissue is seen in the upper-outer quadrant of the right breast as compared to the left side. Prior sonogram demonstrated this to be dense fibroglandular tissue. No suspicious masses, areas of developing architectural distortion, or suspicious calcifications. There has been no significant interval change. BI/SCRN MAMM (CAD)W/AGNES BILAT IMPRESSION: Stable examination. OVERALL FINAL ASSESSMENT BI-RADS 2: BENIGN RECOMMEND ANNUAL MAMMOGRAPHIC SCREENING. RECOMMENDATION: Routine annual follow-up in 1 Year A letter with findings and recommendations will be mailed to the patient. Reading Location: [place] [address] CC: JARON Corondao Advertising Writer: Signed Normal [facility] Colonoscopy Reporton [address] [facility] Medical Records Department [address] [place] [id number] Colonoscopy Report MR#: [id number] Acct: [id number] Name: SUNI WILSON Rep #: [id number] : 1965 59 From: Shahrzad Carlos MD PCP: JARON Prince Status:REG [facility] Patient Name: Suni Wilson Procedure Date: 09/27/2024 8:49 AM Date of : 1965 Age: 59 Procedure: Colonoscopy Indications: Screening for colorectal malignant neoplasm Providers: Shahrzad Carlos MD Referring MD: Jaron Prince Medicines: Monitored Anesthesia Care Patient Profile: This is a 59 year old female. Last Colonoscopy: 10 years ago. Complications: No immediate complications. Procedure: Pre-Anesthesia Assessment: - Prior to the procedure, a History and Physical was performed, and patient medications and allergies were reviewed. The patient's tolerance of previous anesthesia was also reviewed. The risks and benefits of the procedure and the sedation options and risks were discussed with the patient. All questions were answered, and informed consent was obtained. Prior Anticoagulants: The patient has taken no anticoagulant or antiplatelet agents except for aspirin. ASA Grade Assessment: Per anesthesia. After reviewing the risks and benefits, the patient was deemed in satisfactory condition to undergo the procedure. After I obtained informed consent, the scope was passed under direct vision. Throughout the procedure, the patient's blood pressure, pulse, and oxygen saturations were monitored continuously. The Colonoscope was introduced through the anus and advanced to the cecum, identified by appendiceal orifice and ileocecal valve. The colonoscopy was performed without difficulty. The patient tolerated the procedure well. The quality of the bowel preparation was good. Scope In: 8:57:10 AM Scope Withdrawal Time 0 hours 8 minutes 44 seconds Scope Out: 9:10:34 AM Total Procedure Duration Time 0 hours 13 minutes 24 seconds Findings: The perianal and digital rectal examinations were normal. Two sessile polyps were found in the rectum. The polyps were less than 5 mm in size. These polyps were removed with a cold biopsy forceps. Resection and retrieval were complete. The exam was otherwise without abnormality on direct and retroflexion views. Impression: - Two less than 5 mm polyps in the rectum, removed with a cold biopsy forceps. Resected and retrieved. - The examination was otherwise normal on direct and retroflexion views. Recommendation: - Discharge patient to home. - Resume previous diet. - Continue present medications. - Await pathology results. - Repeat colonoscopy in 5-10 years for surveillance based on pathology results. Procedure Code(s): --- Professional --- 60634, PT, Colonoscopy, flexible; with biopsy, single or multiple Diagnosis Code(s): --- Professional --- Z12.11, Encounter for screening for malignant neoplasm of colon D12.8, Benign neoplasm of rectum CPT copyright 2021 [employer]. All rights reserved. The codes documented in this report are preliminary and upon pier runner review may be revised to meet current compliance requirements. MD Shahrzad Thomas MD 09/27/2024 9:16:18 AM This report has been signed electronically. Number of Addenda: 0 Note Initiated On: 09/27/2024 8:49 AM 09/27/24915 Date Shahrzad Perea Signature: Date (if indicated) CC: MARKETING AUTOMATION SPECIALIST-C Simi Coronado; Dr. Shahrzad Carlos MD Date Dictated: 09/27/24848 Date Transcribed: Advertising Writer: SURAJ Bolanos [facility] MR/POSTOP.Kathy 09-27-2024 MR/POSTOP.[facility] Medical Records Department [address] [place] [id number] Anesthesia Postop Eval I 09/27/24917 MR#: [id number] Acct: [id number] Name: SUNI WILSON Rep #: [id number] : 1965 59 From: Iker Tinsley PCP: JARON Prince Status:REG SDC Y Race: C Location: [place] [address] Anesthesia: Postop Eval I Current Vital Signs Temperature: 98.1 F Pulse Rate: 78 Blood Pressure: 101/42 Respiratory Rate: 16 Pulse Ox: 96 Oxygen Delivery Method: Room Air Assessment Airway patent: Yes Spontaneous unlabored respirations: Yes Mental status: Awake nausea: No Vomiting: No Anesthesia Complication: No Fluid Hydration Crystalloid volume administer (ml): 40 Total IV fluid infused: 40 Progress Note Anesthesia document: Postop Eval 1 completed: Yes 09/27/24918 Date Iker Perea Signature: Date CC: Signed Normal [facility] MR/[id number] 09-27-2024 MR/POSTOPAN2 [facility] Medical Records Department [address] [place] [address] Anesthesia Postop Eval II 09/27/24923 MR#: [id number] Acct: [id number] Name: SUNI WILSON Rep #: [id number] : 1965 59 From: Harman Calderon MD PCP: JARON Pricne Status:REG SDC Y Race: C Location: [facility]15- Anesthesia Postop Eval I Sum Postop Eval Completion status Anesthesia document: Postop Eval 1 completed: Yes Anesthesia Postop Eval I Summary Anesthesia Postop Eval I Summary: Anesthesia Postop Eval I: Assessment Summary Airway patent Yes 09/27/24 09:19 [email or web address] Spontaneous unlabored Yes 09/27/24 09:19 [email or web address] respirations Mental status Awake 09/27/24 09:19 [email or web address] nausea No 09/27/24 09:19 [email or web address] Vomiting No 09/27/24 09:19 [email or web address] Anesthesia Postop Eval I: Fluid Summary Crystalloid volume administer 40 09/27/24 09:19 [email or web address] (ml) Colloids volume administered ( ml) Blood Product volume administered (ml) Total IV fluid infused 40 09/27/24 09:19 [email or web address] Anesthesia Postop Eval I: Summary Notes Anesthesia Complication No 09/27/24 09:19 [email or web address] Anesthesia Complication Comment: Post-operative progress note Anesthesia: Postop Eval II Evaluation Mental status: Awake Pain Level: 0 nausea: No Vomiting: No 09/27/24924 Date Harman Calderon MD Cosigner Signature: Date CC: Signed Normal [facility] Surgery Specimen Level Yovany 09-27-2024 Surgery Specimen Level IV Patient Age/Sex Location Account Attending Physician SUNI WILSON 59/F EN [id number] Dr. Shahrzad Carlos MD Specimen: [id number] Received: 09/27/24 Status: SUSANA [place] Num: [id number] Spec Type: COLON BX Subm Dr: Dr. Shahrzad Carlos MD HEADER OPERATION: Colonoscopy biopsy PRE-OP DIAGNOSIS: Encounter for screening for malignant neoplasm of colon TISSUE SUBMITTED: Rectal polyp biopsy MICROSCOPIC DIAGNOSIS Rectal polyp, biopsy: Tubular adenoma. Fragments of hyperplastic colonic mucosa. AM. 09/28/2024 MICROSCOPIC DESCRIPTION Slides are reviewed. GROSS DESCRIPTION Received in fixative is one container labeled with the patient's name and designated Rectal polyp biopsy. The specimen consists of two irregular fragments of light knutson soft tissue that in aggregate measure 0.5 x 0.5 x 0.1 cm. The specimen is totally submitted in one cassette. 09/27/2024 TC:5 [facility]:[id number] Patient Age/Sex Location Account Attending Physician SUNI WILSON 59/F EN [id number] Dr. Shahrzad Carlos MD Signed (signature on file) Dr. Tip Whittaker DO 09/28/24 1204 Normal [facility] Comment on above: Performed By: #### L [id number] #### [facility] Laboratory [address] [place], [address] CNOVon 12-30-2022 CNOV Office Visit (GENSWS) SUNI WILSON ([id number]) 1965 F Date Time Provider Department 12/30/22 3:45 PM PHILIP CROCKETT During your visit today, we recorded the following information about you: Temperature Pulse Blood pressure Weight 97.6 degrees 86/minute 112/86 66.4 kg Height 1.626 m Lisa Villatoro LPN 12/30/2022 3:57 PM Signed [...] Neurologic: The patient denies a history of epilepsy/convulsions , denies headaches, denies head/spinal injuries, and denies [...] last Mammogram screening? 10/2022 Last Colonoscopy: n/a SOSA Dozier III, MD 12/30/2022 4:26 PM Signed HISTORY AND PHYSICAL Suni Wilson 1965 REFERRING PHYSICIAN: Heidy Diaz APRN.CNM CHIEF COMPLAINT: Consult (breast) HPI: The patient is a 57 year old female with a complaint of dimpling of the skin on her left breast. She has had a mammogram and ultrasound completed at [facility] these were read as negative [...] 1 x week for maintenance No current faci (more content not included)... Normal [facility] ([id number]) 1965 F Date Time Provider Department 12/11/22 PHILIP CROCKETT During your visit today, we recorded the following information about you: Carolyn Berger LPN 12/11/2022 9:41 AM Signed Patient called in requesting information regarding paperwork that was sent over from heidy diaz office for referral to jamil. 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 Carolyn Berger LPN Allergies As of Date: 12/11/2022 Noted Allergy Reaction ALCOHOLS, C12-15, ETHOXYLATED 11/04/2005 9 - Itching ERYC (ERYTHROMYCIN) 11/04/2005 8 - GI Upset FORMALDEHYDE 11/04/2005 9 - Itching FRAGRANCES 11/04/2005 9 - Itching LATEX 11/06/2006 9 - Itching other chemical in hair care produ*11/05/2005 Comments: P-Tert Butyl Phenol=itching PENICILLINS 11/04/2005 Comments: uncertain Date Reviewed: 11/27/2022 Reviewed by: Ricardo Jc MD - Fully Assessed Prescriptions as of 07/14/2023 - clobetasol (TEMOVATE) 0.05 % ointment Apply 1 application to affected area twice daily. Apply thin coat to affected tissue BID x 6 weeks then use 1 x weekly for maintenance - escitalopram oxalate (LEXAPRO) 10 mg tablet - nystatin (MYCOSTATIN) powder apply topically 4 times daily as needed - azelaic acid-niacinamide 15-4 % crea Apply to affected area. 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 Irregular menstrual cycle [N92.6] 11/15/2008 10/15/2012 Metrorrhagia [N92.1] 11/15/2008 07/09/2016 Other specified noninflammatory disorder of cer*04/23/2010 07/09/2016 Hypertrophy of uterus [N85.2] 04/23/2010 07/09/2016 Complex endometrial hyperplasia 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 *08/13/2011 07/09/2016 Anxiety neurosis [F41.1] 06/13/2015 Rosacea [L71.9] 06/13/2015 Encounter Status:Closed by CAROLYN BERGER on 07/14/23 Normal [facility] CNOVon 11-27-2022 CNOV Office Visit (AGRHEUHWN) SUNI WILSON ([id number]) 1965 F Date Time Provider Department 11/27/22 2:00 PM RICARDO JC During your visit today, we recorded the following information about you: Temperature Pulse Blood pressure Weight 97.6 degrees 62/minute 135/60 66.9 kg Height 1.63 m Ricardo Jc MD 11/27/2022 3:02 PM Signed Subjective HPI: 57-year-old pleasant lady with low [...] not taking: Reported on 11/27/2022) No current facility-administere d medications for this visit. ALLERGIES Allergen Reactions Alcohols, C12-15, E* Itching Eryc [Erythromycin] GI Upset Formaldehyde Itching Fragrances Itching Latex Itching Other Chemical In H* P-Tert Butyl Phenol=itching Penicillins uncertain FAMILY HISTORY Problem Relation Age of Onset Thyroid Mother hypo Cataract Mother Heart Mother mitral valve prolapse/[place] Hypertension Mother Stroke Mother february 2018 other (osteopenia) Mother Hypertension Father Heart Father Endarterectomy 2011 Hyperlipidemia Father other (colon polyps) Brother Heart Paternal Grandfather Diabetes Paternal Aunt Thyroid Sister hypo Social History Tobacco Use Sm (more content not included)... 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 Allergies As of [...] EXTREMITIES: normal ASSESSMENT AND PLAN: 1. Change o (more content not included)... Normal [facility] CNOVon 04-09-2022 CNOV Office Visit (SALVADORHEUHWN) SUNI WILSON ([id number]) 1965 F Date Time Provider Department 04/09/22 8:40 AM RICARDO JC During your visit today, we recorded the following information about you: Temperature Pulse Blood pressure Weight 98.2 degrees 61/minute 131/57 63.8 kg Height 1.651 m Ricardo Jc MD 04/09/2022 10:48 AM Signed Subjective HPI: Suni Wilson is a 56 [...] 1 x weekly for maintenance No current facility-administere d medications for this visit. ALLERGIES Allergen Reactions - Alcohols, C12-15, E* Itching - Eryc [Erythromycin] GI Upset - Formaldehyde Itching - Fragrances Itching - Latex Itching - Other Chemical In H* P-Tert Butyl Phenol=itching - Penicillins uncertain FAMILY HISTORY Problem Relation Age of Onset - Thyroid Mother hypo - Cataract Mother - Heart Mother mitral valve prolapse/[place] - Hypertension Mother - Stroke Mother february [...] No Dryness: No Feels like something in ey (more content not included)... Normal [facility] Office Visit: UC: cellulitis d/t bee stingon 07-07-2017 Documentation of current medications (procedure) Done Invalid Interpretation Code [facility] Work Phone: Fall risk assessment No Invalid Interpretation Code [facility] Work Phone: Tobacco use [facility] Never smoker Invalid Interpretation Code [facility] Work Phone: DXA-AXIAL SKELETON [facility] Vital Signs Date Time Vital Sign Value Performing Clinician Facility 12-30-2022 15:48-0500 Body height 162.6 cm Philip Crockett MD Work Phone: [facility] 12-30-2022 15:48-0500 Body temperature 97.59 [degF] Philip Crockett MD Work Phone: [facility] 12-30-2022 15:48-0500 Body weight 66.41 kg Philip Crockett MD Work Phone: [facility] 12-30-2022 15:48-0500 Diastolic blood pressure 86 mm[Hg] Philip Crockett MD Work Phone: [facility] 12-30-2022 15:48-0500 Heart rate 86 /min Philip Crockett MD Work Phone: [facility] 12-30-2022 15:48-0500 SaO2% (BldA) [Mass fraction] 96 % Philip Crockett MD Work Phone: [facility] 12-30-2022 15:48-0500 Systolic blood pressure 112 mm[Hg] Philip Crockett MD Work Phone: [facility] 11-27-2022 14:03-0500 Body height 163 cm Ricardo Jc MD Work Phone: [facility] 11-27-2022 14:03-0500 Body temperature 97.59 [degF] Ricardo Jc MD Work Phone: [facility] 11-27-2022 14:03-0500 Body weight 66.91 kg Ricardo Jc MD Work Phone: [facility] 11-27-2022 14:03-0500 Diastolic blood pressure 60 mm[Hg] Ricardo Jc MD Work Phone: [facility] 11-27-2022 14:03-0500 Heart rate 62 /min Ricardo Jc MD Work Phone: [facility] 11-27-2022 14:03-0500 SaO2% (BldA) [Mass fraction] 98 % Ricardo Jc MD Work Phone: [facility] 11-27-2022 14:03-0500 Systolic blood pressure 135 mm[Hg] Ricardo Jc MD Work Phone: [facility] 04-09-2022 09:16-0400 Body height 165.1 cm Ricardo Jc MD Work Phone: [facility] 04-09-2022 09:16-0400 Body temperature 98.2 [degF] Ricardo Jc MD Work Phone: [facility] 04-09-2022 09:16-0400 Body weight 63.78 kg Ricardo Jc MD Work Phone: [facility] 04-09-2022 09:16-0400 Diastolic blood pressure 57 mm[Hg] Ricardo Jc MD Work Phone: [facility] 04-09-2022 09:16-0400 Heart rate 61 /min Ricardo Jc MD Work Phone: [facility] 04-09-2022 09:16-0400 Systolic blood pressure 131 mm[Hg] Ricardo Jc MD Work Phone: [facility] 07-07-2017 15:06-0400 BMI (Body Mass Index) 23.48 kg/m2 Niki Mai LPN [facility] Work Phone: 07-07-2017 15:06-0400 Body Temperature 97.3 [degF] Niki Mai LPN [facility] Now [facility] daryl Work Phone: 07-07-2017 15:06-0400 BP Diastolic 60 mm[Hg] Niki Mai LPN [facility] Work Phone: 07-07-2017 15:06-0400 BP Systolic 102 mm[Hg] Niki Mai LPN [facility] Work Phone: 07-07-2017 15:06-0400 Height 162.56 cm Niki Mai LPN [facility] Work Phone: 07-07-2017 15:06-0400 Pulse (Heart Rate) 72 /min Niki Mai LPN [facility] Work Phone: 07-07-2017 15:06-0400 Respiratory Rate 13 /min Niki Mai LPN [facility] daryl Work Phone: 07-07-2017 15:06-0400 Weight 62.05 kg Niki Mai LPN [facility] Work Phone: Encounters Encounter Date Encounter Type Care Provider Facility Start: 09-12-2025 [facility] Facility:[facility] Start: 08-23-2025 Encounter for gynecological examination (general) (routine) without abnormal findings [facility] Start: 08-10-2025 [facility] Facility:[facility] Start: 08-10-2025 End: 08-10-2025 ambulatory [facility] Facility:[facility] Start: 06-30-2025 End: 06-30-2025 ambulatory [facility] Facility:[facility] Start: 06-16-2025 End: 06-16-2025 Emergency department patient visit Felipe Hutchins Facility:[facility] Start: 04-18-2025 End: 04-18-2025 ambulatory [facility] Facility:[facility] Start: 04-11-2025 End: 04-11-2025 ambulatory [facility] Facility:[facility] Start: 09-27-2024 End: 09-27-2024 ambulatory [facility] Facility:[facility] Start: 07-13-2024 End: 07-13-2024 Refill Bettina Xavier APRN.CNP Work Phone: OB/Gynecology Comment on above: Refill Request Start: 12-02-2023 ambulatory Marilee Montes MD Work Phone: OB/Gynecology Comment on above: Yearly mammogram Refill Request Start: 12-30-2022 End: 12-31-2022 ambulatory PHILIP CROCKETT Facility:[facility] Start: 12-30-2022 End: 12-30-2022 Patient encounter procedure Philip Crockett MD Work Phone: General Surgery Comment on above: History of dimpling of breast skin Start: 12-11-2022 Telephone encounter Philip strange MD Work Phone: Ambulatory Surgery Start: 12-08-2022 ambulatory Ricardo Fleming Work Phone: [facility] Comment on above: Ibuprofen use Start: 11-27-2022 End: 11-27-2022 ambulatory RICARDO JC Facility:[facility] Start: 11-27-2022 End: 11-27-2022 Patient encounter procedure Ricardo Jc MD Work Phone: [facility] Comment on above: Psoriatic arthropath y (HCC) (Primary Dx); Cyclic citrullinated peptide (CCP) antibody positive; Pain in joint, multiple sites; Low back pain, unspecified back pain laterality, unspecified chronicity, unspecified whether sciatica present; Psoriasis; Osteopenia of multiple sites; Antinuclear antibody (YOLI) titer greater than 1:80 Start: 11-04-2022 End: 11-04-2022 ambulatory Heidy Diaz APRN.CNM Work Phone: OB/Gynecology Comment on above: Friday Mammogram Start: 05-28-2022 ambulatory Marilee Montes MD Work Phone: OB/Gynecology Comment on above: Health status update s for chart Start: 05-27-2022 End: 05-27-2022 ambulatory Ricardo Jc MD Work Phone: [facility] Comment on above: Cyclic citrullinated peptide (CCP) antibody positive (Primary Dx); Pain in joint, multiple sites; Low back pain, unspecified back pain laterality, unspecified chronicity, unspecified whether sciatica present; Psoriasis; Osteopenia of multiple sites; Psoriatic arthropathy (HCC) Start: 05-27-2022 End: 05-27-2022 Telemedicine consultation with patient Ricardo Jc MD Work Phone: [facility] Start: 04-09-2022 End: 04-09-2022 ambulatory Ricardo Jc MD Work Phone: [facility] Comment on above: Bone Density exam re sults Start: 04-09-2022 End: 04-09-2022 Patient encounter procedure Ricardo Jc MD Work Phone: [facility] Comment on above: Cyclic citrullinated peptide (CCP) antibody positive (Primary Dx); Pain in joint, multiple sites; CRP elevated; Low back pain, unspecified back pain laterality, unspecified chronicity, unspecified whether sciatica present; Osteopenia of multiple sites; Psoriasis; Antinuclear antibody (YOLI) titer greater than 1:80 Procedures Date Procedure Procedure Detail Performing Clinician [...] Detail Author Start: 02-03-2029 Urine microalbumin profile [facility] Start: 07-11-2025 HPV TESTING HPV TESTING [facility] Start: 07-11-2025 PAP TESTING PAP TESTING [facility] Start: 07-11-2025 Screening for malign ant neoplasm of cervix [facility] Start: 06-27-2024 Covid-19 Vaccine ( season) Covid-19 Vaccine () [facility] Start: 06-27-2024 Influenza vaccination Influenza Vacc ine (#1) [facility] Start: 01-18-2024 Colonoscopy COLONOSCOPY [facility] Start: 01-18-2024 COLORECTAL CANCER SCREENING COLORECTAL CANCER SCREENING [facility] Start: 01-18-2024 Screening for malign ant neoplasm of colon [facility] Start: 10-27-2023 Depression Assessment Depression Ass essment [facility] Start: 2023 RSV Vaccine (1 - 1-d ose 60+ series) RSV Vaccine (1 - 1-dose 60+ series) [facility] Start: 06-27-2023 Covid-19 Vaccine () Covid-19 Vaccine () [facility] Start: 06-27-2023 Influenza vaccination Influenza Vacc ine (#1) [facility] Start: 03-14-2023 Mammography [facility] Start: 03-14-2023 Screening for malign ant neoplasm of breast Mammogram Screening [facility] Start: 11-27-2022 End: 01-27-2023 25-hydroxyvitamin D3 [Mass/volume] in Serum or Plasma VITAMIN D 25 HYDROXY Lab Routine Cyclic citrullinated peptide (CCP) antibody positive Pain in joint, multiple sites Low back pain, unspecified back pain laterality, unspecified chronicity, unspecified whether sciatica present Psoriasis Osteopenia of multiple sites Psoriatic arthropathy (HCC) Antinuclear antibody (YOLI) titer greater than 1:80 Expected: 11/27/2022, Expires: 01/27/2023 [facility] Work Phone: Comment on above: Expected: 11/27/2022 , Expires: 01/27/2023 Start: 11-27-2022 End: 01-27-2023 C reactive protein [Mass/volume] in Serum or Plasma C-REACTIVE PROTEIN (CRP) Lab Routine Cyclic citrullinated peptide (CCP) antibody positive Pain in joint, multiple sites Low back pain, unspecified back pain laterality, unspecified chronicity, unspecified whether sciatica present Psoriasis Osteopenia of multiple sites Psoriatic arthropathy (HCC) Antinuclear antibody (YOLI) titer greater than 1:80 Expected: 11/27/2022, Expires: 01/27/2023 [facility] Work Phone: Comment on above: Expected: 11/27/2022 , Expires: 01/27/2023 Start: 11-27-2022 End: 01-27-2023 CBC W Auto Differential panel - Blood CBC + DIFF Lab Routine Cyclic citrullinated peptide (CCP) antibody positive Pain in joint, multiple sites Low back pain, unspecified back pain laterality, unspecified chronicity, unspecified whether sciatica present Psoriasis Osteopenia of multiple sites Psoriatic arthropathy (HCC) Antinuclear antibody (YOLI) titer greater than 1:80 Expected: 11/27/2022, Expires: 01/27/2023 [facility] Work Phone: Comment on above: Expected: 11/27/2022 , Expires: 01/27/2023 Start: 11-27-2022 End: 01-27-2023 Comprehensive metabolic 2000 panel - Serum or Plasma COMP METABOLIC PANEL Lab Routine Cyclic citrullinated peptide (CCP) antibody positive Pain in joint, multiple sites Low back pain, unspecified back pain laterality, unspecified chronicity, unspecified whether sciatica present Psoriasis Osteopenia of multiple sites Psoriatic arthropathy (HCC) Antinuclear antibody (YOLI) titer greater than 1:80 Expected: 11/27/2022, Expires: 01/27/2023 [facility] Work Phone: Comment on above: Expected: 11/27/2022 , Expires: 01/27/2023 Start: 11-27-2022 End: 01-27-2023 Erythrocyte sedimentation rate SED RATE WESTERGREN Lab Routine Cyclic citrullinated peptide (CCP) antibody positive Pain in joint, multiple sites Low back pain, unspecified back pain laterality, unspecified chronicity, unspecified whether sciatica present Psoriasis Osteopenia of multiple sites Psoriatic arthropathy (HCC) Antinuclear antibody (YOLI) titer greater than 1:80 Expected: 11/27/2022, Expires: 01/27/2023 [facility] Work Phone: Comment on above: Expected: 11/27/2022 , Expires: 01/27/2023 Start: 10-27-2022 DEPRESSION ASSESSMENT DEPRESSION ASS ESSMENT [facility] Start: 08-04-2022 Lipid 1996 panel - S ruth or Plasma Lipid Screening [facility] Start: 08-04-2022 Lipid panel Lipid Screening [facility] Start: 08-04-2022 LIPID SCREEN LIPID SCREEN [facility] Start: 06-27-2022 Influenza vaccination INFLUENZA (#1) [facility] Start: 04-09-2022 End: 04-09-2023 YOLI BY IFA WITH REFLEX YOLI BY IFA WITH REFLEX Lab Routine Cyclic citrullinated peptide (CCP) antibody positive Pain in joint, multiple sites CRP elevated Low back pain, unspecified back pain laterality, unspecified chronicity, unspecified whether sciatica present Osteopenia of multiple sites Psoriasis Expected: 04/09/2022, Expires: 04/09/2023 [facility] Work Phone: Comment on above: Expected: 04/09/2022 , Expires: 04/09/2023 Start: 04-09-2022 End: 04-09-2023 C reactive protein [Mass/volume] in Serum or Plasma C-REACTIVE PROTEIN (CRP) Lab Routine Cyclic citrullinated peptide (CCP) antibody positive Pain in joint, multiple sites CRP elevated Low back pain, unspecified back pain laterality, unspecified chronicity, unspecified whether sciatica present Osteopenia of multiple sites Psoriasis Expected: 04/09/2022, Expires: 04/09/2023 [facility] Work Phone: Comment on above: Expected: 04/09/2022 , Expires: 04/09/2023 Start: 04-09-2022 End: 06-09-2022 CBC W Auto Differential panel - Blood CBC + DIFF Lab Routine Cyclic citrullinated peptide (CCP) antibody positive Pain in joint, multiple sites CRP elevated Low back pain, unspecified back pain laterality, unspecified chronicity, unspecified whether sciatica present Osteopenia of multiple sites Psoriasis Expected: 04/09/2022, Expires: 06/09/2022 [facility] Work Phone: Comment on above: Expected: 04/09/2022 , Expires: 06/09/2022 Start: 04-09-2022 End: 06-09-2022 Comprehensive metabolic 2000 panel - Serum or Plasma COMP METABOLIC PANEL Lab Routine Cyclic citrullinated peptide (CCP) antibody positive Pain in joint, multiple sites CRP elevated Low back pain, unspecified back pain laterality, unspecified chronicity, unspecified whether sciatica present Osteopenia of multiple sites Psoriasis Expected: 04/09/2022, Expires: 06/09/2022 [facility] Work Phone: Comment on above: Expected: 04/09/2022 , Expires: 06/09/2022 Start: 04-09-2022 End: 06-09-2022 Creatine kinase [Enzymatic activity/volume] in Serum or Plasma CK CREATINE KINASE Lab Routine Cyclic citrullinated peptide (CCP) antibody positive Pain in joint, multiple sites CRP elevated Low back pain, unspecified back pain laterality, unspecified chronicity, unspecified whether sciatica present Osteopenia of multiple sites Psoriasis Expected: 04/09/2022, Expires: 06/09/2022 [facility] Work Phone: Comment on above: Expected: 04/09/2022 , Expires: 06/09/2022 Start: 04-09-2022 End: 04-09-2023 Cyclic citrullinated peptide IgG Ab [Units/volume] in Serum or Plasma CCP ANTIBODY IGG Lab Routine Cyclic citrullinated peptide (CCP) antibody positive Pain in joint, multiple sites CRP elevated Low back pain, unspecified back pain laterality, unspecified chronicity, unspecified whether sciatica present Osteopenia of multiple sites Psoriasis Expected: 04/09/2022, Expires: 04/09/2023 [facility] Work Phone: Comment on above: Expected: 04/09/2022 , Expires: 04/09/2023 Start: 04-09-2022 End: 04-09-2023 Erythrocyte sedimentation rate SED RATE WESTERGREN Lab Routine Cyclic citrullinated peptide (CCP) antibody positive Pain in joint, multiple sites CRP elevated Low back pain, unspecified back pain laterality, unspecified chronicity, unspecified whether sciatica present Osteopenia of multiple sites Psoriasis Expected: 04/09/2022, Expires: 04/09/2023 [facility] Work Phone: Comment on above: Expected: 04/09/2022 , Expires: 04/09/2023 Start: 04-09-2022 End: 04-09-2023 Hepatitis B virus core Ab [Presence] in Serum HEP B CORE AB TOTAL Lab Routine Cyclic citrullinated peptide (CCP) antibody positive Pain in joint, multiple sites CRP elevated Low back pain, unspecified back pain laterality, unspecified chronicity, unspecified whether sciatica present Osteopenia of multiple sites Psoriasis Expected: 04/09/2022, Expires: 04/09/2023 [facility] Work Phone: Comment on above: Expected: 04/09/2022 , Expires: 04/09/2023 Start: 04-09-2022 End: 04-09-2023 Hepatitis B virus surface Ab [Presence] in Serum by Immunoassay HEP B SURF AG SCRN Lab Routine Cyclic citrullinated peptide (CCP) antibody positive Pain in joint, multiple sites CRP elevated Low back pain, unspecified back pain laterality, unspecified chronicity, unspecified whether sciatica present Osteopenia of multiple sites Psoriasis Expected: 04/09/2022, Expires: 04/09/2023 [facility] Work Phone: Comment on above: Expected: 04/09/2022 , Expires: 04/09/2023 Start: 04-09-2022 End: 04-09-2023 Hepatitis B virus surface Ab [Units/volume] in Serum HEP B SURF AB QUANT Lab Routine Cyclic citrullinated peptide (CCP) antibody positive Pain in joint, multiple sites CRP elevated Low back pain, unspecified back pain laterality, unspecified chronicity, unspecified whether sciatica present Osteopenia of multiple sites Psoriasis Expected: 04/09/2022, Expires: 04/09/2023 [facility] Work Phone: Comment on above: Expected: 04/09/2022 , Expires: 04/09/2023 Start: 04-09-2022 End: 04-09-2023 Hepatitis C virus Ab [Presence] in Serum HEP C AB IA W/CONF SCRN Lab Routine Cyclic citrullinated peptide (CCP) antibody positive Pain in joint, multiple sites CRP elevated Low back pain, unspecified back pain laterality, unspecified chronicity, unspecified whether sciatica present Osteopenia of multiple sites Psoriasis Expected: 04/09/2022, Expires: 04/09/2023 [facility] Work Phone: Comment on above: Expected: 04/09/2022 , Expires: 04/09/2023 Start: 04-09-2022 End: 04-09-2023 Rheumatoid factor [Units/volume] in Serum or Plasma RHEUMATOID FACTOR BL Lab Routine Cyclic citrullinated peptide (CCP) antibody positive Pain in joint, multiple sites CRP elevated Low back pain, unspecified back pain laterality, unspecified chronicity, unspecified whether sciatica present Osteopenia of multiple sites Psoriasis Expected: 04/09/2022, Expires: 04/09/2023 [facility] Work Phone: Comment on above: Expected: 04/09/2022 , Expires: 04/09/2023 Start: 04-09-2022 End: 06-09-2022 Thyrotropin [Units/volume] in Serum or Plasma TSH BLD Lab Routine Cyclic citrullinated peptide (CCP) antibody positive Pain in joint, multiple sites CRP elevated Low back pain, unspecified back pain laterality, unspecified chronicity, unspecified whether sciatica present Osteopenia of multiple sites Psoriasis Expected: 04/09/2022, Expires: 06/09/2022 [facility] Work Phone: Comment on above: Expected: 04/09/2022 , Expires: 06/09/2022 Start: 04-09-2022 End: 04-09-2023 Urate [Mass/volume] in Serum or Plasma URIC ACID BLOOD Lab Routine Cyclic citrullinated peptide (CCP) antibody positive Pain in joint, multiple sites CRP elevated Low back pain, unspecified back pain laterality, unspecified chronicity, unspecified whether sciatica present Osteopenia of multiple sites Psoriasis Expected: 04/09/2022, Expires: 04/09/2023 [facility] Work Phone: Comment on above: Expected: 04/09/2022 , Expires: 04/09/2023 Start: 04-09-2022 End: 06-09-2022 Urinalysis complete panel - Urine URINALYSIS, WITH MICROSCOPIC Lab Routine Cyclic citrullinated peptide (CCP) antibody positive Pain in joint, multiple sites CRP elevated Low back pain, unspecified back pain laterality, unspecified chronicity, unspecified whether sciatica present Osteopenia of multiple sites Psoriasis Expected: 04/09/2022, Expires: 06/09/2022 [facility] Work Phone: Comment on above: Expected: 04/09/2022 , Expires: 06/09/2022 Start: 10-16-2021 Covid-19 Vaccine (6 - Moderna series) Covid-19 Vaccine (6 - Moderna series) [facility] Start: 06-18-2019 DIABETES SCREEN DIABETES SCREEN [facility] Start: 06-18-2019 Diabetes Screening Diabetes Screenin g [facility] Start: 07-09-2017 Adult depression screening assessment DEPRESSION SCREENING [facility] Start: 07-07-2017 End: 07-07-2017 Appointment Appointment [facility] Now [facility] Work Phone: Start: 2008 COLOGUARD (FIT-DNA) COLOGUARD (FIT-D NA) [facility] Start: [address] COLONOGRAPHY [facility] Start: 2008 FECAL OCCULT BLOOD FECAL OCCULT BLOO D [facility] Start: 2008 Screening for malign ant neoplasm of colon [facility] Start: 2008 SIGMOIDOSCOPY SIGMOIDOSCOPY [facility] Start: 1981 Anxiety Screening Anxiety Screening [facility] Start: 1981 Depression Screening Depression Scre ening [facility] Start: 1981 HIV SCREENING HIV SCREENING [facility] Start: 1981 HIV screening HIV Screening [facility] Patient Education CELLULITIS [facility] Now in Work Phone: End: 05-09-2023 Radex spine cervical 2 or 3 views XR CERV GENERAL 2V AP/LAT Radiology Routine Cyclic citrullinated peptide (CCP) antibody positive Pain in joint, multiple sites CRP elevated Low back pain, unspecified back pain laterality, unspecified chronicity, unspecified whether sciatica present Osteopenia of multiple sites Psoriasis 1 Occurrences starting 04/09/2022 until 05/09/2023 [facility] Work Phone: Comment on above: 1 Occurrences starti ng 04/09/2022 until 05/09/2023 End: 05-09-2023 Radiologic examination sacroiliac jnts <3 views XR SACROILIAC JOINTS 2V AP PELVIS/FERGUESON Radiology Routine Cyclic citrullinated peptide (CCP) antibody positive Pain in joint, multiple sites CRP elevated Low back pain, unspecified back pain laterality, unspecified chronicity, unspecified whether sciatica present Osteopenia of multiple sites Psoriasis 1 Occurrences starting 04/09/2022 until 05/09/2023 [facility] Work Phone: Comment on above: 1 Occurrences starti ng 04/09/2022 until 05/09/2023 End: 05-09-2023 XR SHOULDER GENERAL 3V OR MORE AP/TRUE AP/OTHER LEFT XR SHOULDER GENERAL 3V OR MORE AP/TRUE AP/OTHER LEFT Radiology Routine Cyclic citrullinated peptide (CCP) antibody positive Pain in joint, multiple sites CRP elevated Low back pain, unspecified back pain laterality, unspecified chronicity, unspecified whether sciatica present Osteopenia of multiple sites Psoriasis 1 Occurrences starting 04/09/2022 until 05/09/2023 [facility] Work Phone: Comment on above: 1 Occurrences starti ng 04/09/2022 until 05/09/2023 End: 05-09-2023 XR SHOULDER GENERAL 3V OR MORE AP/TRUE AP/OTHER RIGHT XR SHOULDER GENERAL 3V OR MORE AP/TRUE AP/OTHER RIGHT Radiology Routine Cyclic citrullinated peptide (CCP) antibody positive Pain in joint, multiple sites CRP elevated Low back pain, unspecified back pain laterality, unspecified chronicity, unspecified whether sciatica present Osteopenia of multiple sites Psoriasis 1 Occurrences starting 04/09/2022 until 05/09/2023 [facility] Work Phone: Comment on above: 1 Occurrences starti ng 04/09/2022 until 05/09/2023 [facility] Immunizations Immunization Date Immunization Notes Care Provider [facility] 08-08-2022 influenza virus vaccine, unspecified formulation Philip Crockett MD Work Phone: [facility] 12-16-2020 COVID-19 vaccine, fu ll dose (MODERNA) Ricardo Jc MD Work Phone: [facility] Work Phone: 11-15-2020 COVID-19 vaccine, fu ll dose (MODERNA) Ricardo Jc MD Work Phone: [facility] Work Phone: 02-21-2020 zoster vaccine recombinant Ricardo Jc MD Work Phone: [facility] 10-05-2019 zoster vaccine recombinant Ricardo Jc MD Work Phone: [facility] 09-16-2019 influenza, injectabl e, quadrivalent, contains preservative Ricardo Jc MD Work Phone: [facility] 02-03-2019 tetanus toxoid, redu joe diphtheria toxoid, and acellular pertussis vaccine, adsorbed Ricardo Jc MD Work Phone: [facility] 07-09-2016 influenza, seasonal, injectable Ricardo Jc MD Work Phone: [facility] Work Phone: 02-27-2009 tetanus toxoid, redu joe diphtheria toxoid, and acellular pertussis vaccine, adsorbed Ricardo Jc MD Work Phone: [facility] Work Phone: Payers Date Payer Category Payer Self-pay 2021 Unknown [employer] PPO OOS [id number] 2021-Present [phone] [address] [place] [address] PPO [id number] 2021 Unknown [employer] PPO OOS [id number] 2021-Present [phone] [address] [place] [address] PPO [id number] 2021 Unknown [id number] Unknown [id number] Unknown [id number] Unknown [id number] Unknown [id number] Unknown [id number] Unknown [id number] Unknown [id number] Unknown [id number] Unknown [id number] Social History Date Type Detail Facility Start: 11-04-2022 Tobacco smoking stat [facility] Never smoked tobacco [facility] Work Phone: Start: 04-09-2022 End: 12-30-2022 Alcohol intake Current drinker of alcohol (finding) [facility] Start: 10-01-2020 End: 04-09-2022 Alcohol intake [facility] Start: 1965 Sex Assigned At Female C [facility] Start: 03-30-2022 End: 05-27-2022 Exposure to SARS-CoV-2 (event) Not sure [facility] Start: 11-04-2022 Tobacco use and exposure Smokeless tobacco non-user [facility] Start: 10-01-2020 End: 12-30-2022 Tobacco use panel [facility] National Score (1-100), lower number is lower risk Not on file [facility] Start: 03-24-2022 Gender identity Identifies as female gender (finding) [facility] Clinical Notes 08-13-2011 to 09-27-2024 Telephone Encounter - Elissa Nicole LPN - 12/02/2023 2:38 PM ESTTelephone Encounter - Kitty Meyer RN - 12/02/2023 9:52 AM Moris Crockett MD - 12/30/2022 4:04 PM EST Note Date & Type Note Facility 09-27-2024 Note [facility] Medical Records Department [address] [place] [address] History Physical Exam 09/27/24 0751 MR#: [id number] Acct: [id number] Name: SUNI WILSON Rep #: [id number] : 1965 59 From: Shahrzad Carlos MD PCP: Simi Coronado NP-Alfred Status:REG [facility] Location: [place] [address] HPI - General General Date of Service: 09/27/24 HPI Narrative SUNI WILSON, is a 59 F who presents for a screening colonoscopy. Patient last colonoscopy was in [address] Aponte negative per patient. Patient denies any family history of colon cancer, patient's brother did have polyps unsure of the size. Patient has bowel movements daily denies any blood. Patient denies any chronic abdominal pain/nausea/vomiting/reflux. [facility] Medical History (Updated 09/22/24 @ 11:11 by Mya Bhakta) Post-menopausal Wears glasses Cancer Anxiety Alcohol use Psoriasiform eczema Polyarticular arthritis Back pain Osteopenia Injury of head and neck Non-smoker History of pain when walking History of echocardiogram History of irregular heartbeat Hx of breast lump Home Medications ???Medication ???Instructions ???Recorded ???Last Taken ???Type multivitamin with folic acid 400 1 tab PO DAILY 01/12/14 Unknown History mcg tablet calcium carbonate (Calcium 500) 500 mg PO BID 12/02/17 Unknown History betamethasone dipropionate 0.05 % 1 applic topical DAILY PRN skin 06/03/24 Unknown History topical cream irritation clobetasol 0.05 % topical ointment 1 applic topical DAILY PRN SKIN 06/03/24 Unknown History escitalopram oxalate 20 mg tablet 10 mg PO DAILY 06/03/24 Unknown History (Lexapro) Allergy/AdvReac Type Severity Reaction Status Date / Time Environmental Allergies: Allergy Rash Verified 09/27/24 07:39 Uncoded lanolin Allergy Rash Verified 09/27/24 07:39 latex Allergy Rash Verified 09/27/24 07:39 perfume Allergy Itching Verified 09/27/24 07:39 erythromycin base AdvReac Vomiting Verified 09/27/24 07:39 (Erythromycin Base) Penicillins AdvReac PT UNSURE Verified 09/27/24 07:39 OF REACTION Family History (Updated 06/03/24 @ 08:53 by Meghann Blackwood) Brother Colon polyps Other Diabetes Hypertension MVP (mitral valve prolapse) Surgical History (Updated 09/22/24 @ 11:11 by Mya Bhakta) Hx of rectal sphincterotomy Hx of dilation and curettage History of bunionectomy of right great toe Hx of colonoscopy Hx of section Social History (Updated 06/03/24 @ 08:54 by Meghann Blackwood) household members: spouse current occupational status: employed current occupation: [employer] Smoking Status: Never smoker alcohol intake: current alcohol intake frequency: 0-2 drinks per day Alcohol type: beer substance use type: does not use Past Medical/Surgical History Planned Operation Planned Operative Procedure(s): CSCOPE OA S.O.S: No Previous Hospitalizations/Surgeries HX Hospitalizations: No HX of Surgeries: C SECT 97 FISSUROTOMY 96 BUNION RIGHT 77 RHINOPLASTY 81 D AND C 98 VAG DEL 00 Any Problems With Anesthesia: No You/Your Family Experience Fever (Hyperthermia) With Anes: No Cholinesterase deficiency: No Cardiovascular Hx Chest Pain within Last 2 months: No Hx of Irregular Heartbeat and/or Afib: No Hx Heart Attack: No Hx Congestive Heart Failure: No Hx Rheumatic Fever: No Hx Hypertension: No Hx Internal Defibrillator: No Hx Pacemaker: No Hx Cardiac Catheterization: No Hx Cardiac Surgery/Stents/Etc.: No Hx Stress Test: Yes (ECHO D/T PALPS 01/02- NO PROBLEMS FOUND) Hx Pain in Legs when Walking/Leg Cramps: No Respiratory Chronic Cough: No HX of Shortness of Breath: No Hoarseness: No Hx Chronic Obstructive Pulmonary Disease (COPD): No Hx Asthma: No Hx Emphysema: No Hx Sleep Apnea: No CPAP: No BIPAP: No Hx Respiratory Tract Infection/Cold (presently): No Do You Snore Loudly (louder than talking or can be heard): Yes Do You Often Feel Tired/ Fatigued/ Sleepy Dring Daytime?: No Has Anyone Observed You Stop Breathing During Sleep?: No Result (for STOP score): Negative Hx Smoking: No Smoking Status: Never smoker Gastrointestinal Hx Gastrointestinal Disorders: No Hx Gastrointestinal Bleed: No Hx Ulcer: No Hx Hiatal Hernia: No Difficulty Chewing/Swallowing: No Special diet followed at home: No Hx Unplanned Weight Loss of 20#: No HX Unplanned Weight Gain of 20#: No Neurological Hx Seizures: No HX Syncope/Blackout Spells/Unconsciousness: No Hx Transient Ischemic Attacks (TIA): No Hx Multiple Sclerosis: No Hx Parkinson's Disease: No Hx Head/Neck Injury: Yes (NECK DISC BULGING 2009) Hx Headaches: No Hx Back Injury/Pain: No Recent Onset of Speech Difficulty: No Restless Legs: No Does patient have nerve stimulator: No Blood Disorder Hx Leukemia: No Bleeding Tendencies: No Hx Deep Vein Thrombosis: No (more content not included)... [facility] 12-02-2023 Miscellaneous Notes Order for mammogram faxed to [facility]. Elissa Nicole LPN documented in this encounter [facility] 12-02-2023 Miscellaneous Notes Please file in DM's absence. Thank you. documented in this encounter [facility] 12-30-2022 Note HNO ID: [id number] Author: Philip Crockett MD Service: ? Author Type: Physician Type: Progress Notes Filed: 12/30/2022 4:26 PM Note Text: HISTORY AND PHYSICAL Suni Wilson 1965 REFERRING PHYSICIAN: Heidy Diaz APRN.CNM CHIEF COMPLAINT: Consult (breast) HPI: The patient is a 57 year old female with a complaint of dimpling of the skin on her left breast. She has had a mammogram and ultrasound completed at [facility] these were read as negative [...] hypo Cataract Mother Heart Mother mitral valve prolapse/[place] Hypertension Mother Stroke Mother february 2018 other (osteopenia) Mother Hypertension Father Heart Father Endarterectomy 2011 Hyperlipidemia Father other (colon polyps) Brother Heart Paternal Grandfather Diabetes Paternal Aunt Thyroid Sister hypo REVIEW OF SYMPTOMS: The review of systems data was entered by the nurse and reviewed by vt Nursing Notes: Lisa Villatoro LPN 12/30/2022 3:57 [...] denies stroke/TIA. P (more content not included)... [facility] 12-30-2022 History of Present illness Narrative HISTORY AND PHYSICAL Suni Wilson 1965 REFERRING PHYSICIAN: Heidy Diaz APRN.CNM CHIEF COMPLAINT: Consult (breast) HPI: The patient is a 57 year old female with a complaint of dimpling of the skin on her left breast. She has had a mammogram and ultrasound completed at [facility] these were read as negative [...] Procedure Laterality Date BIOPSY BREAST OPEN INCISIONAL 1996 Bx of breast, incisional DELIVERY ONLY , [...] hypo Cataract Mother Heart Mother mitral valve prolapse/[place] Hypertension Mother Stroke Mother february 2018 other (osteopenia) Mother Hypertension Father Heart Father Endarterectomy 2011 Hyperlipidemia Father other (colon polyps) Brother Heart Paternal Grandfather Diabetes Paternal Aunt Thyroid Sister hypo REVIEW OF SYMPTOMS: The review of systems data was entered by the nurse and reviewed by vt Nursing Notes: Lisa Villatoro LPN 12/30/2022 3:57 [...] C (97.6 F), height 162.6 cm (5' 4), weight 66.4 kg (146 lb 6.4 oz), [...] This note will be forwarded to Dr. Heriberto Sloan MD. Return to Clinic: The patient is instructed to follow-up with me as needed. Philip Crockett III, MD documented in this encounter [facility] 12-30-2022 Nurse Note REVIEW OF SYSTEMS: [...] Lisa Villatoro LPN documented in this encounter [facility] 12-11-2022 Miscellaneous Notes Patient called in requesting information regarding paperwork that was sent over from heidy diaz office for referral to [facility]. 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 Carolyn Berger LPN documented in this encounter [facility] 12-09-2022 Miscellaneous Notes Please let patient [...] to do so documented in this encounter [facility] 11-27-2022 Note HNO ID: [id number] Author: Ricardo Jc MD Service: ? Author [...] hypo Cataract Mother Heart Mother mitral valve prolapse/[place] Hypertension Mother Stroke Mother february 2018 other [...] needed, the fo (more content not included)... [facility] 11-27-2022 History of Present illness Narrative Subjective [...] history of psoriasis many years ago around 2000 during one of her pregnancies but has [...] hypo Cataract Mother Heart Mother mitral valve prolapse/[place] Hypertension Mother Stroke Mother february 2018 other [...] something in eye: No Itching eyes: No [id number]-THROAT: Ringing in ears: No Loss of hearing: [...] C (97.6 F) Ht 163 cm (5' 4.17) Wt 66.9 kg (147 lb 8 oz) [...] Ricardo Jc MD documented in this encounter [facility] 11-04-2022 Note HNO ID: [id number] Author: Heidy Diaz APRN.KALYANI Service: ? 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 [facility] 05-27-2022 Note HNO ID: [id number] Author: Ricardo Jc MD Service: ? Author [...] Cataract Mother - Heart Mother mitral valve prolapse/[place] - Hypertension Mother - Stroke Mother february 2018 - other (osteopenia) Mother - Hypertension Father - Heart Father Endarterectomy 2011 - Hyperlipidemia F (more content not included)... [facility] 05-27-2022 History of Present illness Narrative Subjective [...] hypo Cataract Mother Heart Mother mitral valve prolapse/[place] Hypertension Mother Stroke Mother february 2018 other [...] something in eye: No Itching eyes: No [id number]-[id number]-THROAT: Ringing in ears: No Loss of hearing: [...] Ricardo Jc MD documented in this encounter [facility] 04-09-2022 Note HNO ID: [id number] Author: Ricardo Jc MD Service: ? Author [...] Cataract Mother - Heart Mother mitral valve prolapse/[place] - Hypertension Mother - Stroke Mother february [...] something in eye: No Itching eyes: No [id number]-THROAT: Ringing in ears: No Loss of hearing: No Nosebleeds: No Loss of smell: No Dryness in nose: No Runny Nose: No Sore tongue: No Bleeding gums: No Sores in mouth: No Loss of taste: No Dryness of mouth: No Frequent sore (more content not included)... [facility] 04-09-2022 History of Present illness Narrative Subjective [...] Complex endometrial hyperplasia 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 2010 Fracture 2007 fracture of left wrist Irregular [...] hypo Cataract Mother Heart Mother mitral valve prolapse/[place] Hypertension Mother Stroke Mother february 2018 other [...] something in eye: No Itching eyes: No [id number]-AZERN-THROAT: Ringing in ears: No Loss of hearing: [...] C (98.2 F) Ht 165.1 cm (5' 5) Wt 63.8 kg (140 lb 9.6 oz) [...] Ricardo Jc MD documented in this encounter [facility] 08-13-2011 History of Past i llness Narrative Problem Noted Date Resolved Date Complex endometrial hyperplasia 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 1 07/09/2016 Other specified noninflammatory disorder of cerv ix 04/23/2010 07/09/2016 Hypertrophy of uterus 04/23/2010 07/09/2016 Irregular menstrual cycle 11/15/20082011 Metrorrhagia 11/15/2008 07/09/2016 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 documented as of this encounter (statuses as of 04/09/2022) [facility] History of Past illness Narrative* Problem Noted Date Resolved Date Complex endometrial hyperplasia 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 1 07/09/2016 Other specified noninflammatory disorder of cerv ix 04/23/2010 07/09/2016 Hypertrophy of uterus 04/23/2010 07/09/2016 Irregular menstrual cycle 11/15/20082011 Metrorrhagia 11/15/2008 07/09/2016 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 documented as of this encounter (statuses as of 04/10/2022) [facility] History of Past illness Narrative* Problem Noted Date Resolved Date Complex endometrial hyperplasia 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 1 07/09/2016 Other specified noninflammatory disorder of cerv ix 04/23/2010 07/09/2016 Hypertrophy of uterus 04/23/2010 07/09/2016 Irregular menstrual cycle 11/15/20082011 Metrorrhagia 11/15/2008 07/09/2016 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 documented as of this encounter (statuses as of 05/27/2022) [facility] History of Past illness Narrative* Problem Noted Date Resolved Date Complex endometrial hyperplasia 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 1 07/09/2016 Other specified noninflammatory disorder of cerv ix 04/23/2010 07/09/2016 Hypertrophy of uterus 04/23/2010 07/09/2016 Irregular menstrual cycle 11/15/20082011 Metrorrhagia 11/15/2008 07/09/2016 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 documented as of this encounter (statuses as of 05/28/2022) [facility] History of Past illness Narrative* Problem Noted Date Resolved Date Complex endometrial hyperplasia 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 1 07/09/2016 Other specified noninflammatory disorder of cerv ix 04/23/2010 07/09/2016 Hypertrophy of uterus 04/23/2010 07/09/2016 Irregular menstrual cycle 11/15/20082011 Metrorrhagia 11/15/2008 07/09/2016 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 documented as of this encounter (statuses as of 11/06/2022) [facility] History of Past illness Narrative* Problem Noted Date Resolved Date Complex endometrial hyperplasia 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 1 07/09/2016 Other specified noninflammatory disorder of cerv ix 04/23/2010 07/09/2016 Hypertrophy of uterus 04/23/2010 07/09/2016 Irregular menstrual cycle 11/15/20082011 Metrorrhagia 11/15/2008 07/09/2016 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 documented as of this encounter (statuses as of 11/27/2022) [facility] History of Past illness Narrative* Problem Noted Date Resolved Date Complex endometrial hyperplasia 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 1 07/09/2016 Other specified noninflammatory disorder of cerv ix 04/23/2010 07/09/2016 Hypertrophy of uterus 04/23/2010 07/09/2016 Irregular menstrual cycle 11/15/20082011 Metrorrhagia 11/15/2008 07/09/2016 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 documented as of this encounter (statuses as of 12/09/2022) [facility] History of Past illness Narrative* Problem Noted Date Resolved Date Complex endometrial hyperplasia 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 1 07/09/2016 Other specified noninflammatory disorder of cerv ix 04/23/2010 07/09/2016 Hypertrophy of uterus 04/23/2010 07/09/2016 Irregular menstrual cycle 11/15/20082011 Metrorrhagia 11/15/2008 07/09/2016 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 documented as of this encounter (statuses as of 12/31/2022) [facility] History of Past illness Narrative* Problem Noted Date Diagnosed Date Resolved Date Complex endometrial hyperpla edgar 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 08/13/2011 07/09/2016 Other specified noninflammat ory disorder of cervix 04/23/2010 07/09/2016 Hypertrophy of uterus 04/23/20102015 Irregular menstrual cycle 11/15/2008 Metrorrhagia 11/15/2008 07/09/2016 Other specified congenital anomaly of skin 01/07/2006 07/19/2014 documented as of this encounter (statuses as of 07/14/2023) [facility] History of Past illness Narrative* Problem Noted Date Diagnosed Date Resolved Date Complex endometrial hyperpla edgar 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 08/13/2011 07/09/2016 Other specified noninflammat ory disorder of cervix 04/23/2010 07/09/2016 Hypertrophy of uterus 04/23/20102015 Irregular menstrual cycle 11/15/2008 Metrorrhagia 11/15/2008 07/09/2016 Other specified congenital anomaly of skin 01/07/2006 07/19/2014 documented as of this encounter (statuses as of 12/03/2023) [facility] History of Past illness Narrative* Problem Noted Date Diagnosed Date Resolved Date Complex endometrial hyperpla edgar 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 08/13/2011 07/09/2016 Other specified noninflammat ory disorder of cervix 04/23/2010 07/09/2016 Hypertrophy of uterus 04/23/20102015 Irregular menstrual cycle 11/15/2008 Metrorrhagia 11/15/2008 07/09/2016 Other specified congenital anomaly of skin 01/07/2006 07/19/2014 documented as of this encounter (statuses as of 12/02/2023) [facility] Cyclic citrullinated peptide (CCP) antibody positive- Primary Pain in joint, multiple sites CRP elevated Elevated C-reactive protein (CRP) Low back pain, unspecified back pain laterality, unspecified chronicity, unspecified whether sciatica present Osteopenia of multiple sites Psoriasis Other psoriasis Antinuclear antibody (YOLI) titer greater than 1:80 [facility] Cyclic citrullinated peptide (CCP) antibody positive- Primary Pain in joint, multiple sites Low back pain, unspecified back pain laterality, unspecified chronicity, unspecified whether sciatica present Psoriasis Other psoriasis Osteopenia of multiple sites Psoriatic arthropathy (HCC) Psoriatic arthropathy documented in this encounter [facility] note* Diagnosis Psoriatic arthropathy (HCC)- Primary Psoriatic arthropathy Cyclic citrullinated peptide (CCP) antibody positive Pain in joint, multiple sites Low back pain, unspecified back pain laterality, unspecified chronicity, unspecified whether sciatica present Psoriasis Other psoriasis Osteopenia of multiple sites Antinuclear antibody (YOLI) titer greater than 1:80 documented in this encounter [facility] note* Diagnosis History of dimpling of breast skin documented in this encounter [facility] for referral (narrative)* Diagnostic Procedure Only (Routine) [...] VIEWS Ricardo Jc MD [address] [facility] [address] [place] [address] Xr Imaging Referral ID Status Reason Start Date Expiration Date Visits Requested Visits Authorized [id number] Pending Review Auto-Generat ed Referral 04/09/2022 05/09/2023 [...] VIEWS Ricardo Jc MD [address] [facility] [address] [place] [address] Xr Imaging Referral ID Status Reason Start Date Expiration Date Visits Requested Visits Authorized [id number] Pending Review Auto-Generat ed Referral 04/09/2022 05/09/2023 [...] OR 3 VIEWS Ricardo Jc MD [address] [facility] [address] [place] [address] Xr Imaging Referral ID Status Reason Start Date Expiration Date Visits Requested Visits Authorized [id number] Pending Review Auto-Generat ed Referral 04/09/2022 05/09/2023 [...] <3 VIEWS Ricardo Jc MD [address] [facility] [address] [place] [address] Xr Imaging Referral ID Status Reason Start Date Expiration Date Visits Requested Visits Authorized [id number] Pending Review Auto-Generat ed Referral 04/09/2022 05/09/2023 1 1 [facility] Summary Purpose Family History No Family History Records FoundNo Family History Records FoundNo Family History Records Found Advance Directives No Advanced Directives Records FoundNo Advanced Directives Records FoundNo Advanced Directives Records Found Additional Source Comments Source Comments (unrecognize d section and content) In the event this informatio n is protected by the Federal Confidentiality of Alcohol and Drug Abuse Patient Records regulations: The Federal rules restrict any use of the information to criminally investigate or prosecute any alcohol or drug abuse patient.[facility] event this information is protected by the Federal Confidentiality of Alcohol and Drug Abuse Patient Records regulations: The Federal rules restrict any use of the information to criminally investigate or prosecute any alcohol or drug abuse patient.[facility] the event this information is protected by the Federal Confidentiality of Alcohol and Drug Abuse Patient Records regulations: The Federal rules restrict any use of the information to criminally investigate or prosecute any alcohol or drug abuse patient.[facility] the event this information is protected by the Federal Confidentiality of Alcohol and Drug Abuse Patient Records regulations: The Federal rules restrict any use of the information to criminally investigate or prosecute any alcohol or drug abuse patient.[facility] the event this information is protected by the Federal Confidentiality of Alcohol and Drug Abuse Patient Records regulations: The Federal rules restrict any use of the information to criminally investigate or prosecute any alcohol or drug abuse patient.[facility] the event this information is protected by the Federal Confidentiality of Alcohol and Drug Abuse Patient Records regulations: The Federal rules restrict any use of the information to criminally investigate or prosecute any alcohol or drug abuse patient.[facility] the event this information is protected by the Federal Confidentiality of Alcohol and Drug Abuse Patient Records regulations: The Federal rules restrict any use of the information to criminally investigate or prosecute any alcohol or drug abuse patient.[facility] the event this information is protected by the Federal Confidentiality of Alcohol and Drug Abuse Patient Records regulations: The Federal rules restrict any use of the information to criminally investigate or prosecute any alcohol or drug abuse patient.[facility] the event this information is protected by the Federal Confidentiality of Alcohol and Drug Abuse Patient Records regulations: The Federal rules restrict any use of the information to criminally investigate or prosecute any alcohol or drug abuse patient.[facility] the event this information is protected by the Federal Confidentiality of Alcohol and Drug Abuse Patient Records regulations: The Federal rules restrict any use of the information to criminally investigate or prosecute any alcohol or drug abuse patient.[facility] the event this information is protected by the Federal Confidentiality of Alcohol and Drug Abuse Patient Records regulations: The Federal rules restrict any use of the information to criminally investigate or prosecute any alcohol or drug abuse patient.[facility] the event this information is protected by the Federal Confidentiality of Alcohol and Drug Abuse Patient Records regulations: The Federal rules restrict any use of the information to criminally investigate or prosecute any alcohol or drug abuse patient.[facility] Reason for Visit (unrecogniz ed section and content) Reason Comments Pain shoulder, back, hips and knees Reason Comments Joint Pain Reason Comments cyclic citrullinated peptide antibody po sitive Reason Comments Consult breast Specialty Diagnoses / Procedures Referred By Ariela torres Referred To Contact General Surgery Diagnoses History of dimpling of breast skin Procedures CONSULT TO GENERAL SURGERY OFFICE/OUTPATIENT [facility] 60-74 MINUTES Heidy Diaz APRN.[facility] [address] [place] [address] Referral ID Status Reason Start Date Expiration Date V isits Requested Visits Authorized [id number] Closed PCP Requested Referral 11/20/2022 11/20/2023 1 1 Reason Onset Date Comments Refill Request 12/02/2023 Reason Onset Date Comments Refill Request 07/13/2024 Care Teams (unrecognized sec tion and content) Newspaper 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 Relationship Specialty Start Date End Date Heriberto Sloan MD [address] [place], [place] [id number] PCP - General Family Practice 08/21/18 Newspaper Vendor Relationship Specialty Start Date End Date Heriberto Sloan MD [address] [place], [place] [id number] PCP - General Family Practice 08/21/18 Newspaper Vendor Relationship Specialty Start Date End Date Heriberto Sloan MD [address] [place] [address] PCP - General Family Practice 08/21/18 Newspaper Vendor Relationship Specialty Start Date End Date Heriberto Sloan MD [address] [place], [place] [id number] PCP - General Family Medicine 08/21/18 Newspaper Vendor Relationship Specialty Start Date End Date Heriberto Sloan MD [address] [place], [place] [id number] PCP - General Family Medicine 08/21/18 Newspaper Vendor Relationship Specialty Start Date End Date Heriberto Sloan MD [address] [place], [place] [id number] PCP - General Family Medicine 08/21/18 Newspaper Vendor Relationship Specialty Start Date End Date Heriberto Sloan MD [address] [place], [place] [id number] PCP - General Family Medicine 08/21/18 Newspaper Vendor Relationship Specialty Start Date End Date Heriberto Sloan MD [address] [place] [address] PCP - General Family Medicine 08/21/18 Newspaper Vendor Relationship Specialty Start Date End Date Heriberto Sloan MD [address] [place] [address] PCP - General Family Medicine 08/21/18 Newspaper Vendor Relationship Specialty Start Date End Date Heriberto Sloan MD [address] [place] [address] PCP - General Family Medicine 08/21/18 INFORMATION SOURCE (unrecogn ized section and content) DATE CREATED AUTHOR 11/28/2022 [facility] DATE CREATED AUTHOR AUTHOR'S ORGANIZ ATION 07/15/2023 [facility] DATE CREATED AUTHOR AUTHOR'S ORGANIZ ATION 09/06/2025 [facility] FOR RECORDS PERTAINING TO PATIENTS WHO [...] BE BASED ON THE PRIMARY CLINICAL RECORDS. [facility] provides no warranty or guarantee of the accuracy or completeness of information in this document.
== END | disposition home or self-care (01) ==
LOC: CVS 13:46
PROVIDERS: PCP Nurse Practitioner Family; Referring Provider Nurse Practitioner Family; Visit Provider Nurse Practitioner Family
DX: E78.5 Hyperlipidemia, unspecified (principal)
CPT/HCPCS: 93880

== ENCOUNTER → 2025-09-20 | Outpatient (CLI) | payer BC, SELFPAY | END | disposition home or self-care (01) | LOC: LABSPEC 16:39 | PROVIDERS: PCP Nurse Practitioner Family; Referring Provider Obstetrics & Gynecology; Visit Provider Obstetrics & Gynecology | DX: N89.8 Other specified noninflammatory disorders of vagina (principal) | CPT/HCPCS: 87070; 87077; 87186; 87205 ==

== ENCOUNTER → 2025-10-17 | Outpatient (CLI) | payer BC, SELFPAY | END | disposition home or self-care (01) | LOC: LABSPEC 16:17 | PROVIDERS: PCP Nurse Practitioner Family; Visit Provider Nurse Practitioner Women's Health | DX: N89.8 Other specified noninflammatory disorders of vagina (principal) | CPT/HCPCS: 87070; 87205 ==